=== PATIENT | female | born 2000 | race Hispanic/Latino ===

== ENCOUNTER 2023-03-23 06:18 | Observation (INO) | payer OTHER ==
--- OUTSIDE RECORDS SUMMARY | 2023-03-23 06:24 | XMS REPORT | Continuity of Care Document ---
:2000 Author Organization [facility] Address [address] [place] [address] Care Team Providers Name Role Phone Asked, No Pcp Primary Care Physician Unavailable [email or web address] Attending Clinician Unavailable [email or web address] Attending Clinician Unavailable [email or web address] Attending Clinician Unavailable Leanna Brown MA Attending Clinician Unavailable Jayce COOMBS, Valentina Brandon Attending Clinician [phone] Barbara Vegas MD Attending Clinician Krunal Rincon MD Attending Clinician [phone] Provider, Unknown Attending Clinician Unavailable Jefe Carpenter MD Attending Clinician [phone] Dolly Sol MA Attending Clinician Unavailable Leena Bey MD Attending Clinician Unavailable Kathe Mathew MD Attending Clinician [phone] Zoya Barahona DO Attending Clinician [phone] Chely Berrios MD Attending Clinician [phone] Juan Daniel Bull Attending Clinician JUAN DANIEL BULL Attending Clinician Unavailable VALENTINA TRUJILLO Admitting Clinician Unavailable Pauline COOMBS, Jefe Klein Unavailable [phone] Zoya Barahona DO Unavailable [phone] Ryan COOMBS, Kadie Obrien Unavailable [phone] Agustina COOMBS, Chely Unavailable [phone] Sotero COOMBS, Leena Unavailable Unavailable Quincy COOMBS, Kathe Unavailable [phone] Payers Payer Name Policy Type Policy Number Effective Date Expiration Date Jordon mccoy [facility] STAR P [id number] 2022 00:00:00 [facility] STAR P [id number] 2022 00:00:00 Problems Condition Condition Condition Status Onset Resolution Last Treating Co mments Source Name Details Category Date Date Treatment Clinician Date Vaginal Vaginal Disease Active Methodi delivery delivery 02-27 00:00: Hospita 00 l 40 weeks 40 weeks Disease Active Metho di gestation gestation 02-26 of of 00:00: Hospita 00 l Encounter Encounter Disease Active Met hodi for for 02-24 suspected suspected 00:00: Hosp parris premature premature 00 l rupture of rupture of amniotic amniotic membranes, membranes, with with rupture of rupture of membranes membranes not found not found Bacterial Bacterial Disease Active Met hodi vaginosis vaginosis 02-24 in in 00:00: Hospita 00 l GBS Condition Active 2023-02-17 Zofia Carpenter uthwe positive 02-17 09:19:[address] OB 00:00: 00 Encounter Condition Active 2023-01-23 Chapo Carpenter for 01-23 14:44:[address] OB supervisio 00:00: n of 00 normal first , third trimester Encounter Condition Active 2022-10-13 Brooklyn Cowan for 10-13 14:23:56 , Zoya st OB supervisio 00:00: Weust n of 00 normal first , second trimester Chlamydial Condition Active 2022-10-08 Chapo Davis infection 10-03 20:56:[address] OB 00:00: Camille 00 Insufficie Condition Active 2022-10-03 Chapo Berrios nt 2- 16:45:[address] OB 00:00: care, 00 second trimester 12 WEEKS 12 WEEKS Diagnosis Active 2022-09-29 Memoria /V /V 1-10 08:06:00 l OMITING OMITING 00:00: Jermaine Active 00 08/12/2022 [facility] Excessive Excessive Problem Active 2022-08-15 Memoria vomiting vomiting 05:34:32 l in in [place] (disorder) (disorder) Active Problem 08/15/2022 [facility] 39 Weeks Condition Active 2023-02-26 2023-02-19 Chapo Carpenter Gestation 7 00:00:00 13:23:[address] OB of 00:00: 00 38 Weeks Condition Inactiv 2023-02-19 2023-02-12 Chapo Carpenter Gestation e 02-12 00:00:00 13:20:[address] OB of 00:00: 00 35 Weeks Condition Inactiv 2023-01-30 2023-01-23 Chapo Carpenter Gestation e 01-23 00:00:00 14:44:[address] OB of 00:00: 00 History of Past Illness Condition Condition Condition Status Onset Resolution Last Treating Co mments Source Name Details Category Date Date Treatment Clinician Date 26 Weeks Condition Inactiv 2022-11-25 2022-11-18 Chapo Bey Gestation e 11-18 00:00:00 14:30:[address] OB of 00:00: 00 23 Weeks Condition Inactiv 2022-11-04 2022-10-28 SwapnilChapo López Gestation e 10-28 00:00:00 13:42:[address] OB of 00:00: 00 21 Weeks Condition Inactiv 2022-10-20 2022-10-13 Brooklyn Cowan Gestation e 3-13 00:00:00 14:23:56 , Zoya st OB of 00:00: Weust 00 Encounter Condition Inactiv 2022-10-13 2022-10-13 Trudi Cowan for e - 00:00:00 14:23:56 , Zoya st OB supervisio 00:00: Weust n of other 00 normal , second trimester 19 Weeks Condition Inactiv 2022-10-01 2022-09-24 Chapo Berrios Gestation e - 00:00:00 11:24:[address] OB of 00:00: 00 Urinary Urinary Diagnosis 2022-08-15 2022-08-15 Memoria tract tract 1-10 05:34:32 05:34:32 l infection infection 22:50: Herm meche in in 00 (disorder) (disorder) 08/12/2022 Diagnosis 08/15/2022 [facility] Mild Mild Diagnosis 2022-08-15 2022-08-15 Memoria hyperemesi hyperemesi 1-10 05:34:32 05:34:32 l s s 22:49: Jermaine gravidarum gravidarum 00 (disorder) (disorder) Diagnosis 08/15/2022 [facility] Allergies, Adverse Reactions, Alerts This patient has no known allergies or adverse reactions. Social History Social Habit Start Date Stop Date Quantity Comments Source [facility] Alcohol intake 2023-02-26 2023-02-26 Ex-drinker [facility] 00:00:00 00:00:00 (finding) Hospital History of Social 2023-02-26 2023-02-[address] function 00:00:00 00:00:00 Hospital Tobacco use and 2023-02-24 2023-02-24 Smokeless tobacco [facility] exposure 00:00:00 00:00:00 non-user Hospital sexual orientation 2023-02-19 2023-02-19 Straight or [facility] 12:58:59 12:58:59 heterosexual [facility] PHQ2 Questionairre 2023-02-19 2023-02-19 [facility] Score 12:58:59 12:58:59 [facility] is there any chance 2023-02-19 2023-02-19 Yes Legac y that you could be 12:58:59 12:58:59 Communi ty ? Health if the patient is 2023-02-19 2023-02-19 No [facility] using/has used a 12:58:59 12:58:59 Communit y vaping item, Health Current, Former, Never Used, Not asked number of children 2023-02-19 2023-02-19 Legacy 12:58:59 12:58:59 [facility] passive cigarette 2023-02-19 2023-02-19 LA32-8 Legacy smoke exposure 12:58:59 12:58:59 [facility] social history 2023-01-23 2023-01-23 reviewed today [facility] reviewed E&M 14:10:25 14:10:25 [facility] drug use 2023-01-23 2023-01-23 Never [facility] 14:10:25 14:10:25 [facility] alcohol use 2023-01-23 2023-01-23 Prior to Legac y 14:10:25 14:10:25 [facility] time of call 2022-10-30 2022-10-30 10/30/2022 1:40 PM Lega cy 13:39:58 13:39:58 [facility] smoking/tobacco 2022-09-24 2022-09-24 Complete [facility] cessation, patient 10:21:05 10:21:05 Commun ity education and Health counseling cat exposure during 2022-09-24 2022-09-24 no Legac y 10:21:05 10:21:05 [facility] Have you traveled to 2022-09-24 2022-09-24 no Lega cy any zika virus 10:21:05 10:21:05 Community infected areas? Health History of tobacco 2020-09-22 Current smoker [facility] use 00:00:00 Hospital Sex Assigned At [birth year] [facility] 00:00:00 00:00:00 Hospital Smoking Status Start Date Stop Date Source Ex-smoker 2023-02-24 00:00:00 2023-02-24 00:00:00 [facility] Tobacco smoking status [facility] Medications Ordered Filled Start Stop Current Ordering Indication Dosage Frequency Signature Comments Components Source Medication Medication Date Date Medication? Clinician (SIG) Name Name calcium Yes QD Chew 2 Methodi carbonate -[address] (TUMS) 200 17:01: (1,000 mg Ho spita mg calcium 00 of Calcium l (500 mg) Carbonate chewable total) tablet daily. Yes 1{tbl} QD Take 1 Metho di vit,calc76- 02-[address] iron-folic 17:02: mouth Hospit a 29 mg iron- 26 daily. l 1 mg tablet per tablet ondansetron Yes 4mg Q8H Take 1 Meth khadra ODT 02-27 tablet (4 st (ZOFRAN-ODT 17:02: mg total) H ospita ) 4 MG 26 by mouth l disintegrat every 8 ing tablet (eight) hours as needed for nausea or vomiting. ferrous 2023- Yes 325mg QD Take 1 Method i sulfate 325 02-[address] (65 FE) MG 00:00: 04:59 (325 mg Hos edgar EC tablet 00 :00 total) by l mouth daily for 360 days. docusate 2022- Yes 100mg Q.5D Take 1 Metho di sodium 02-27 11- capsule st (COLACE) 00:00: 05:59 (100 mg Hospi ta 100 MG 00 :00 total) by l capsule mouth 2 (two) times a day as needed for constipati on for up to 120 days. ibuprofen 2022- Yes 600mg Q6H Take 1 Meth khadra (ADVIL) 600 02-[address] MG tablet 00:00: 04:59 (600 mg Hosp parris 00 :00 total) by l mouth every 6 (six) hours as needed (Cramping, Laceration or Incision Pain) for up to 30 days. metroNIDAZO 2022- No 500mg Q.5D Take 1 Me thodi LE (FlagyL) 02-[address] 500 MG 00:00: 04:59 (500 mg Hospita tablet 00 :00 total) by l mouth 2 (two) times a day for 7 days. INTEGRA F Yes Jefe A 1 Take 1 [facility] (FE 02-23 Pauline COOMBS capsule by Adul t FUM-FEPOLY- 00:00: mouth once Medicin FA-VIT 00 a day e C-VIT B3) 125-1 MG CAPS (FERROUS 2022-0 202- No Jefe A 1 Take 1 [facility] SULFATE) 02-17 07-24 Pauline MD tablet by Adult 325 (65 Fe) 00:00: 00:00 mouth once Medicin MG TABS 00 :00 a day e (AZITHROMYC 0 Yes Kadie 2 Take 2 LM C IN) 500 MG 3-03 Camille tablet by Adult TABS 00:00: Davis mouth Medicin 00 MD single e dose (ONDANSETRO 0 Yes Chely 1 Take 1 LM C N) 4 MG 2-22 Agustina COOMBS tablet by Ad ult TBDP 00:00: mouth Medicin 00 every e eight hours as needed for nausea VITAFOL 0 Yes Chely 1 Take 1 [facility] ULTRA 2-22 Agustina COOMBS capsule by Jeff lt (PREN-FE 00:00: mouth once M edicin POLY-METHFO 00 a day e L-FA-DHA) 29-0.6-0.4- 200 MG CAPS Keflex 500 2022-0 Yes 500 mg = 1 M emoria mg oral 1-10 cap, PO, l capsule 22:47: QID, X 7 Adam n 00 day, # 28 cap, 0 Refill(s) Keflex 500 2022-0 Yes 500 mg = 1 M emoria mg oral 1-10 cap, PO, l capsule 22:47: QID, X 7 Adam n 00 day, # 28 cap, 0 Refill(s) Keflex 500 2022-0 Yes 500 mg = 1 M emoria mg oral 1-10 cap, PO, l capsule 22:47: QID, X 7 Adam n 00 day, # 28 cap, 0 Refill(s) Keflex 500 2022-0 Yes 500 mg = 1 M emoria mg oral 1-10 cap, PO, l capsule 22:47: QID, X 7 Adam n 00 day, # 28 cap, 0 Refill(s) Keflex 500 2022-0 Yes 500 mg = 1 M emoria mg oral 1-10 cap, PO, l capsule 22:47: QID, X 7 Adam n 00 day, # 28 cap, 0 Refill(s) Diclegis 10 0 Yes 2 tab, PO, Memoria mg-10 mg 1-10 Bedtime, # l oral 22:45: 30 tab, 0 [place] delayed 00 Refill(s) release tablet Diclegis 10 Yes 2 tab, PO, Memoria mg-10 mg 1-10 Bedtime, # l oral 22:45: 30 tab, 0 [place] delayed 00 Refill(s) release tablet Diclegis 10 0 Yes 2 tab, PO, Memoria mg-10 mg 1-10 Bedtime, # l oral 22:45: 30 tab, 0 [place] delayed 00 Refill(s) release tablet Diclegis 10 0 Yes 2 tab, PO, Memoria mg-10 mg 1-10 Bedtime, # l oral 22:45: 30 tab, 0 [place] delayed 00 Refill(s) release tablet Diclegis 10 Yes 2 tab, PO, Memoria mg-10 mg 1-10 Bedtime, # l oral 22:45: 30 tab, 0 [place] delayed 00 Refill(s) release tablet Vital Signs Vital Name Observation Time Observation Value Comments Source Systolic blood 2023-02-27 16:57:14 101 mm[Hg] [facility] pressure Diastolic blood 2023-02-27 16:57:14 66 mm[Hg] [facility] pressure Heart rate 2023-02-27 16:57:14 72 /min [facility] Body temperature 2023-02-27 16:57:[address] [facility] Oxygen saturation in 2023-02-27 16:57:14 99 /min [facility] Arterial blood by Pulse oximetry Respiratory rate 2023-02-27 09:05:02 18 /min [facility] Body height 2023-02-26 07:12:00 160 cm [facility] Body weight 2023-02-26 07:12:00 80.74 kg [facility] BMI 2023-02-26 07:12:00 31.53 kg/m2 [facility] Body Mass Index 2023-02-19 12:58:59 31.17 kg/m2 [facility] weight E&M 2023-02-19 12:58:59 169.8 [lb_av] [facility] Diastolic blood 2023-02-19 12:58:59 71 mm[Hg] Leg[facility] pressure Health Systolic blood 2023-02-19 12:58:59 114 mm[Hg] [facility] pulse rate 2023-02-19 12:58:59 86 /min [facility] C [facility] Health temperature site 2023-02-19 12:58:59 oral Lega cy [facility] Health height E&M 2023-02-19 12:58:59 62 [in_i] [facility] Health Body Mass Index 2023-02-12 12:57:25 31.39 kg/m2 [facility] Diastolic blood 2023-02-12 12:57:25 80 mm[Hg] Legac [facility] pressure Health Systolic blood 2023-02-12 12:57:25 130 mm[Hg] [facility] pulse rate 2023-02-12 12:57:25 92 /min [facility] respiratory rate E&M 2023-02-12 12:57:25 16 /[facility] 2023-02-12 12:57:25 oral Lega [facility] Health temperature E&M 2023-02-12 12:57:25 97.7 [degF] Leg[facility] y [facility] Health weight E&M 2023-02-12 12:57:25 171 [lb_av] [facility] height E&M 2023-02-12 12:57:25 62 [in_i] [facility] Body Mass Index 2023-01-23 14:10:25 30.36 kg/m2 [facility] Diastolic blood 2023-01-23 14:10:25 77 mm[Hg] Legac y [facility] pressure Health Systolic blood 2023-01-23 14:10:25 117 mm[Hg] [facility] pulse rate 2023-01-23 14:10:25 94 /min [facility] respiratory rate E&M 2023-01-23 14:10:25 16 /min [facility] temperature E&M 2023-01-23 14:10:25 97.9 [degF] Leg[facility] Health weight E&M 2023-01-23 14:10:25 165.4 [lb_av] [facility] 2023-01-23 14:10:25 oral Lega cy [facility] Health height E&M 2023-01-23 14:10:25 62 [in_i] [facility] Health Body Mass Index 2022-11-18 13:41:34 27.17 kg/m2 [facility] Diastolic blood 2022-11-18 13:41:34 69 mm[Hg] Leg[facility] pressure Health Systolic blood 2022-11-18 13:41:34 106 mm[Hg] [facility] E&M 2022-11-18 13:41:34 17 /min [facility] temperature site 2022-11-18 13:41:34 oral Lega cy [facility] Health pulse rate 2022-11-18 13:41:34 74 /min [facility] temperature E&M 2022-11-18 13:41:34 98.2 [degF] Leg[facility] Health weight E&M 2022-11-18 13:41:34 148 [lb_av] [facility] height E&M 2022-11-18 13:41:34 62 [in_i] [facility] Health Body Mass Index 2022-10-28 13:05:44 26.43 kg/m2 [facility] Diastolic blood 2022-10-28 13:05:44 71 mm[Hg] Leg[facility] pressure Health Systolic blood 2022-10-28 13:05:44 108 mm[Hg] [facility] pulse rate 2022-10-28 13:05:44 89 /min [facility] Health respiratory rate E&M 2022-10-28 13:05:44 19 /min [facility] temperature E&M 2022-10-28 13:05:44 98.4 [degF] [facility] Health weight E&M 2022-10-28 13:05:44 144.0 [lb_av] [facility] 2022-10-28 13:05:44 oral L[facility] cy [facility] height E&M 2022-10-28 13:05:44 62 [in_i] [facility] Body Mass Index 2022-10-13 13:42:24 26.29 kg/m2 [facility] weight E&M 2022-10-13 13:42:24 143.2 [lb_av] [facility] Health height E&M 2022-10-13 13:42:24 62 [in_i] [facility] Health pulse rate 2022-10-13 13:42:24 71 /min [facility] Health temperature site 2022-10-13 13:42:24 oral [facility]ega [facility] Health temperature E&M 2022-10-13 13:42:24 98.3 [degF] Leg[facility] Health Diastolic blood 2022-10-13 13:42:24 69 mm[Hg] [facility] Systolic blood 2022-10-13 13:42:24 122 mm[Hg] [facility] pressure Health weight E&M 2022-09-24 11:28:00 136 [facility] Body Mass Index 2022-09-24 10:21:05 25.04 kg/m2 [facility] Diastolic blood 2022-09-24 10:21:05 77 mm[Hg] [facility] Systolic blood 2022-09-24 10:21:05 119 mm[Hg] [facility] Health pulse rate 2022-09-24 10:21:05 78 /min [facility] respiratory rate E&M 2022-09-24 10:21:05 16 /min [facility] Health temperature E&M 2022-09-24 10:21:05 98.4 [degF] [facility] weight E&M 2022-09-24 10:21:05 136.4 [lb_av] [facility] Health height E&M 2022-09-24 10:21:05 62 [in_i] [facility] temperature site 2022-09-24 10:21:05 oral [facility] Health Temperature Oral (F) 2022-08-12 23:51:00 98.5 F [facility] Heart Rate 2022-08-12 23:51:00 Ramy Dean Systolic (mm Hg) 2022-08-12 23:51:00 Tru Dean Diastolic (mm Hg) 2022-08-12 23:51:00 Shira Dean Height 2022-08-12 21:10:00 5 [ft_i] Ramy Dean BMI Calculated 2022-08-12 21:10:00 Jun Chinchilla Weight 2022-08-12 21:10:00 Ramy Jermaine Procedures Procedure Date / Time Performing Clinician Source Performed CBC WITH PLATELET AND 2023-02-27 10:06:00 [facility] DIFFERENTIAL Kaisee TYPE AND SCREEN, 2023-02-26 11:53:00 [facility] OBSTETRICAL PATIENT Kaisee ANESTHESIA EPIDURAL 2023-02-26 10:26:58 Mckenzie [facility] BLOCK Cholo URINE CULTURE 2023-02-26 08:01:00 [facility] Kaisee URINE DRUGS OF ABUSE 2023-02-26 07:38:00 [facility] SCREEN Kaisee URINALYSIS SCREEN AND 2023-02-26 07:38:00 [facility] MICROSCOPY, WITH REFLEX Kaisee TO CULTURE SYPHILIS TREPONEMA 2023-02-25 15:18:00 [facility] SCREEN WITH RPR Kaisee CONFIRMATION (REVERSE ALGORITHM) HIV 1/2 2023-02-25 15:18:00 [facility] ANTIGEN/ANTIBODY, FOURTH Kaisee GENERATION, WITH REFLEXES HEPATITIS B SURFACE 2023-02-25 15:18:00 [facility] ANTIGEN Kaisee CBC WITH PLATELET AND 2023-02-25 15:18:00 [facility] DIFFERENTIAL Kaisee ABO/RH 2023-02-25 15:18:00 [facility] Kaisee US BIOPHYSICAL 2023-02-24 13:19:00 [facility] PROFILE Kaisee WET PREP 2023-02-24 12:57:00 [facility] URINE CULTURE 2023-02-24 12:52:00 [facility] S[facility] AND 2023-02-24 12:42:00 [facility] MICROSCOPY, WITH REFLEX Roma TO CULTURE AMNISURE 2023-02-24 12:42:00 [facility] 2022-10-28 13:40:52 Kathe Mathew [facility] OB Ultrasound, single 2022-10-13 14:23:39 Zoya Barahona y [facility] Plan of Care Planned Activity Planned Date Details Comments Source Future Scheduled 2023-03-13 COVID-19 VACCINE (#1) [facility] Test 10:57:59 [code = COVID-19 VACCINE (#1)] Future Scheduled 2023-03-13 [facility] Test 10:57:59 Chlamydia trachomatis (procedure) [code = 185242844] Future Scheduled 2023-03-13 Hepatitis C screening [facility] Test 10:57:59 (procedure) [code = 088347554] Future Scheduled 2023-03-13 [facility] Test 10:57:59 malignant neoplasm of cervix (procedure) [code = 941845689] Future Scheduled 2023-03-13 INFLUENZA VACCINE Method [facility] Test 10:57:59 [code = INFLUENZA VACCINE] Encounters Start End Encounter Admission Attending Care Care Encounter Source Date/Time Date/Time Type Type Clinicians Facility Department ID 2023-02-23 Outpatient [email or web address] [facility] [id number] [facility] 13:39:01 [id number] Critical access hospital 2023-02-11 Outpatient [email or web address] [facility] [id number] [facility] 14:07:03 [id number] Critical access hospital 2023-01-29 Outpatient lc.[email or web address] [facility] [id number] [facility] 13:43:03 [id number] Critical access hospital 2023-01-26 Outpatient [email or web address] [facility] [id number] [facility] 11:27:04 [id number] Critical access hospital 2023-01-22 Outpatient [email or web address] [facility] [id number] [facility] 16:05:04 [id number] Critical access hospital 2022-12-08 Outpatient [email or web address] [facility] [id number] [facility] 13:23:33 [id number] Critical access hospital 2022-11-14 Outpatient [email or web address] [facility] [id number] [facility] 10:17:11 [id number] Critical access hospital 2022-10-24 Outpatient [email or web address] [facility] [id number] [facility] 23:21:54 [id number] Critical access hospital 2022-10-19 Outpatient [email or web address] [facility] [id number] [facility] 18:07:05 [id number] Critical access hospital 2022-10-07 Outpatient [email or web address] [facility] [id number] [facility] 13:01:08 [id number] Critical access hospital 2022-09-25 Outpatient [email or web address] [facility] [id number] [facility] 10:21:12 [id number] Critical access hospital 2022-09-21 Outpatient [facility] [id number] [facility] 20:46:04 [id number] Critical access hospital 2022-09-12 Outpatient [facility] [id number] [facility] 14:13:04 [id number] Critical access hospital 2023-03-02 2023-03-02 Patient Kevin, 1.2.840.1 [id number] Methodi 00:00:00 00:00:00 Outreach Leanna [id number] 3.430.2.7 Hospit a .3.221576 l .8 2023-02-26 2023-02-27 [place] [id number] Methodi 01:54:00 17:01:00 Encounter Valentina gipson [id number] isee 3.430.2.7 Hospit a .3.398099 l .8 2023-02-26 2023-02-27 [facility] 001 [id number] Muir 00:00:00 00:00:00 LEONELA, VALENTINA 045 Met [facility] 2023-02-26 2023-02-26 Anesthesia Barbara [facility] 1.2.840.1 [id number] Methodi 05:07:00 16:30:00 Event Krunal Ricnon [id number] 3.430.2.7 Hospit a .3.808959 l .8 2023-02-26 2023-02-26 Documentat Provider, 1.2.840.1 [id number] Methodi 00:00:00 00:00:00 ion Unknown [id number] 3.430.2.7 Hospit a .3.438966 l .8 2023-02-25 2023-02-25 Outpatient [facility] [id number] Muir 00:00:00 00:00:00 LEONELA, VALENTINA 074 Met [facility] 2023-02-24 2023-02-24 [facility] 1.2.840.1 [id number] Methodi 06:59:00 08:50:00 Encounter Valentina gipson [id number] [facility] 3.430.2.7 Hospit a .3.725152 l .8 2023-02-24 2023-02-24 Emergency [facility] 001 [id number] Muir 00:00:00 00:00:00 LEONELA VALENTINA 579 Met [facility] 2023-02-19 2023-02-19 [facility]:00 00:00:00 encounter Dolly Sol VP PURCHASING [id number] [facility] [id number] [facility] 2023-02-19 2023-02-19 In-person Jefe Carpenter [facility] Diann to [id number] [facility] 00:00:00 00:00:00 encounter Dolly Sol VP PURCHASING 23 [id number] Critical access hospital 2023-02-18 2023-02-18 [facility] 1.2.840.1 [id number] Methodi 00:00:00 00:00:00 Only leonela, Valentina [id number] 183 s t Ka[facility]e 3.430.2.7 Hospit a .3.435334 l .8 2023-02-18 2023-02-18 Orders Francisco Javier-Osterma 1.2.840.1 [id number] Methodi 00:00:00 00:00:00 Only leonela Valentina [id number] 088 s t [place] [id number] Hospit a .[id number] l .8 2023-02-12 2023-02-12 In-person Jefe Carpenter [facility] Jacinto Tidwell to Encounter/ [facility] 00:00:00 00:00:00 encounter Rubi Diaz Family [id number] Commun[facility] Practice [id number] ty Health 2023-02-12 2023-02-12 In-person Jefe Carpenter [facility] Jacinto Tidwell to [id number] [facility] 00:00:00 00:00:00 encounter Rubi Diaz Family [id number] Communi Practice ty Health 2023-01-23 2023-01-23 In-person Jefe Carpenter [facility] Jacinto Tidwell to [id number] [facility] 00:00:00 00:00:00 encounter Hilaria Brown VP PURCHASING [id number] [facility] ty Health 2023-01-23 2023-01-23 In-person Jefe Carpenter [facility] Jacinto Tidwell to Encounter/ [facility] 00:00:00 00:00:00 encounter Hilaria Brown VP PURCHASING [id number] [facility] [id number] ty Health 2022-11-18 2022-11-18 In-person Leena Bey [facility] [place] [id number] [facility] 00:00:00 00:00:00 encounter Jodie Bustos [id number] Communi OB ty Health 2022-11-18 2022-11-18 In-person Leena Bey [facility] [place] Encounter/ [facility] 00:00:00 00:00:00 encounter Jodie Bustos Dot Edd r [id number] [facility] [place] [id number] ty Health 2022-10-28 2022-10-28 In-person Kathe Mathew [facility] [place] Encounter/ [facility] 00:00:00 00:00:00 encounter Viktoriya Guido [place] 19 [id number] [facility] [id number] 2022-10-28 2022-10-28 In-person Kathe Mathew [facility] [place] [id number] [facility] 00:00:00 00:00:00 encounter [facility] 23 [id number] Mariaelena Ewing OB ty Health 2022-10-13 2022-10-13 In-person Zoya Barahona [facility] S [place] [id number] [facility] 00:00:00 00:00:00 encounter Fercho Painterina OB [id number] 13 Magaly Renee ty Health 2022-10-13 2022-10-13 In-person Zoya Barahona [facility] S [place] Encounter/ [facility] 00:00:00 00:00:00 encounter PainterRekha OB 1994 [id number] Magaly Renee [id number] ty Health 2022-09-24 2022-09-24 In-person Chely Berrios [facility] [place] [id number] [facility] 00:00:00 00:00:00 encounter Yumiko Alejandra r [id number] Viktoriya Mera I [facility] [place] [facility] 2022-09-24 2022-09-24 In-person Chely Berrios [facility] [place] Encounter/ [facility] 00:00:00 00:00:00 encounter Viktoriya Lindo I [place] [id number], [place] [address] 0 ty Health 2022-08-12 2022-08-13 Emergency [facility] [id number] Memoria 14:17:59 00:08:[address] 2022-08-12 2022-08-13 Emergency [facility] [id number] [id number] Memoria 14:17:59 00:08:[address] 2022-08-12 2022-08-12 Outpatient Ml, [facility] [id number] 875 08:17:59 18:08:00 Juan Daniel Khanh Purvis 2022-08-12 2022-08-12 Emergency E ML, [facility] 08:17:00 18:08:00 JUAN DANIEL Results Test Description Test Time Test Comments Results Result Comments Source Urine culture 2023-02-27 23:37:00 Test Item Value Reference Range Interpretation Comme nts Urine culture isolate Mixed carli <=10-3 Specimen InformationSpecimen (test code = 05015-7) col/cc Source : UrineSpecimen Site: [facility] agglutination [facility] (TPPA test) 2023-02-12 13:23:00 Test Item Value Reference Range Interpretation Comments Treponema pallidum particle NEGATIVE NEGATIVE N agglutination assay (TPPA test) (test code = 14244-1) [facility] Healthbasophils as percent of blood jysgtskely1575-79-38 13:23:00 Test Item Value Reference Range Interpretation Comments basophils as percent of blood 0.2 % N leukocytes (test code = 707-0) [facility] percent of blood oaoiqhvvwd3704-15-37 13:23:00 Test Item Value Reference Range Interpretation Comments eosinophils as percent of blood 0.5 % N leukocytes (test code = 714-6) [facility] Healthmonocytes as percent of blood pfzzvpahzf5060-48-03 13:23:00 Test Item Value Reference Range Interpretation Comments monocytes as percent of blood 6.3 % N leukocytes (test code = 5905-5) [facility] Valdeselymphocytes as percent of blood qufyyafkzt6015-31-63 13:23:00 Test Item Value Reference Range Interpretation Comments lymphocytes as percent of blood 10.3 % N leukocytes (test code = 736-9) [facility] Valdeseneutrophils as percent of blood nhydqewrwn9661-74-00 13:23:00 Test Item Value Reference Range Interpretation Comments neutrophils as percent of blood 82.7 % N leukocytes (test code = 770-8) [facility] Valdesebasophil count, ogijmpgl6971-54-80 13:23:00 Test Item Value Reference Range Interpretation Comments basophil count, absolute (test 23 cells/uL 0-200 N code = 20973-0) [facility]eAbsolute Eosinophil [id number] 13:23:00 Test Item Value Reference Range Interpretation Comments Absolute Eosinophil count (test 57 cells/mcL 15-500 N code = 19694-1) [facility] [place] Monocyte [id number] 13:23:00 Test Item Value Reference Range Interpretation Comments Absolute Monocyte count (test 712 cells/mcL 200-950 N code = 32235-9) [facility] Valdeselymphocytes, gcifaabv4119-85-89 13:23:00 Test Item Value Reference Range Interpretation Comments lymphocytes, absolute (test 1164 CELLS/UL 850-3900 N code = 86934-2) [facility] [place] Neutrophil [id number] 13:23:00 Test Item Value Reference Range Interpretation Comments Absolute Neutrophil count 9345 cells/mcL 8325-0228 H (test code = 80712-7) [facility] platelet [id number] 13:23:00 Test Item Value Reference Range Interpretation Comments mean platelet volume (test code = 10.5 fL 7.5-12.5 N 776-5) [facility]deseplatelet [id number] 13:23:00 Test Item Value Reference Range Interpretation Comments platelet count (test code = 270 THOUSAND/UL 140-400 N 777-3) [facility]ered blood cell distribution [id number] 13:23:00 Test Item Value Reference Range Interpretation Comments red blood cell distribution width 14.1 % 11.0-15.0 N (test code = 788-0) [facility] corpuscular hemoglobin concentration, [id number] 13:23:00 Test Item Value Reference Range Interpretation Comments mean corpuscular hemoglobin 33.0 G/DL 32.0-36.0 N concentration, RBC (test code = 786-4) [facility] corpuscular hemoglobin, [id number] 13:23:00 Test Item Value Reference Range Interpretation Comments mean corpuscular hemoglobin, RBC 26.5 pg 27.0-33.0 L (test code = 785-6) [facility], [id number] 13:23:00 Test Item Value Reference Range Interpretation Comments mean corpuscular volume, RBC (test 80.4 fL 80.0-100.0 N code = 787-2) [facility]ehematocrit, [id number] 13:23:00 Test Item Value Reference Range Interpretation Comments hematocrit, blood (test code = 4544-3) 30.3 % 35.0-45.0 L [facility] Valdesehemoglobin, [id number] 13:23:00 Test Item Value Reference Range Interpretation Comments hemoglobin, blood (test code = 10.0 g/dL 11.7-15.5 L 718-7) [facility] Valdeseerythrocyte (RBC) [id number] 13:23:00 Test Item Value Reference Range Interpretation Comments erythrocyte (RBC) count (test 3.77 MILLION/UL 3.80-5.10 L code = 789-8) [facility] Valdeseleukocyte count, [id number] 13:23:00 Test Item Value Reference Range Interpretation Comments leukocyte count, blood (test 11.3 THOUSAND/UL 3.8-10.8 H code = 6690-2) [facility] ValdeseHIV-CMIA (Chemiluminescent Microparticle Immuno Assay) 2023-02-12 13:23:00 Test Item Value Reference Range Interpretation Comments HIV-CMIA (Chemiluminescent NON-REACTIVE NON-REACTIVE N Microparticle Immuno Assay) (test code = 33666-7) [facility] ValdeseNeisseria gonorrhoeae DNA [id number] 14:42:00 Test Item Value Reference Range Interpretation Comments Neisseria gonorrhoeae DNA probe NOT DETECTED NOT DETECTED N (test code = 67521-4) [facility] Valdesechlamydia DNA [id number] 14:42:00 Test Item Value Reference Range Interpretation Comments chlamydia DNA probe (test code = NOT DETECTED NOT DETECTED N 61190-3) [facility] ValdeseNeisseria gonorrhoeae DNA [id number] 14:42:00 Test Item Value Reference Range Interpretation Comments Neisseria gonorrhoeae DNA probe NOT DETECTED NOT DETECTED N (test code = 23978-0) [facility] Valdeserubella antibody, serum, [id number] 14:34:00 Test Item Value Reference Range Interpretation Comments rubella antibody, serum, 2.33 (unknown unit) N IgG (test code = 5334-8) [facility] Healthbasophils as percent of blood wpfitivgcq9824-58-94 14:34:00 Test Item Value Reference Range Interpretation Comments basophils as percent of blood 0.2 % N leukocytes (test code = 707-0) [facility]eeosinophils as percent of blood zuomkthifh2146-21-89 14:34:00 Test Item Value Reference Range Interpretation Comments eosinophils as percent of blood 0.7 % N leukocytes (test code = 714-6) [facility] Healthmonocytes as percent of blood wmhdglqijv8337-09-28 14:34:00 Test Item Value Reference Range Interpretation Comments monocytes as percent of blood 4.2 % N leukocytes (test code = 5905-5) [facility] Valdeselymphocytes as percent of blood ivmrfrenpp8802-60-50 14:34:00 Test Item Value Reference Range Interpretation Comments lymphocytes as percent of blood 13.6 % N leukocytes (test code = 736-9) [facility] Valdeseneutrophils as percent of blood dwstxkawxn2999-19-52 14:34:00 Test Item Value Reference Range Interpretation Comments neutrophils as percent of blood 81.3 % N leukocytes (test code = 770-8) [facility] Valdesebasophil count, wicaoido1768-17-64 14:34:00 Test Item Value Reference Range Interpretation Comments basophil count, absolute (test 21 cells/uL 0-200 N code = 00500-9) [facility]eAbsolute Eosinophil [id number] 14:34:00 Test Item Value Reference Range Interpretation Comments Absolute Eosinophil count (test 72 cells/mcL 15-500 N code = 22792-8) [facility]eAbsolute Monocyte [id number] 14:34:00 Test Item Value Reference Range Interpretation Comments Absolute Monocyte count (test 433 cells/mcL 200-950 N code = 18927-4) [facility] Valdeselymphocytes, zisvpgfh3904-08-99 14:34:00 Test Item Value Reference Range Interpretation Comments lymphocytes, absolute (test 1401 CELLS/UL 850-3900 N code = 80516-9) [facility]eAbsolute Neutrophil [id number] 14:34:00 Test Item Value Reference Range Interpretation Comments Absolute Neutrophil count 8374 cells/mcL 2010-7414 H (test code = 90528-4) [facility] platelet [id number] 14:34:00 Test Item Value Reference Range Interpretation Comments mean platelet volume (test code = 10.5 fL 7.5-12.5 N 776-5) [facility]eplatelet [id number] 14:34:00 Test Item Value Reference Range Interpretation Comments platelet count (test code = 266 THOUSAND/UL 140-400 N 777-3) [facility] blood cell distribution [id number] 14:34:00 Test Item Value Reference Range Interpretation Comments red blood cell distribution width 12.1 % 11.0-15.0 N (test code = 788-0) [facility] corpuscular hemoglobin concentration, [id number] 14:34:00 Test Item Value Reference Range Interpretation Comments mean corpuscular hemoglobin 35.6 G/DL 32.0-36.0 N concentration, RBC (test code = 786-4) [facility] corpuscular hemoglobin, [id number] 14:34:00 Test Item Value Reference Range Interpretation Comments mean corpuscular hemoglobin, RBC 32.6 pg 27.0-33.0 N (test code = 785-6) [facility] corpuscular volume, [id number] 14:34:00 Test Item Value Reference Range Interpretation Comments mean corpuscular volume, RBC (test 91.5 fL 80.0-100.0 N code = 787-2) [facility]ehematocrit, [id number] 14:34:00 Test Item Value Reference Range Interpretation Comments hematocrit, blood (test code = 4544-3) 31.2 % 35.0-45.0 L [facility] Valdesehemoglobin, [id number] 14:34:00 Test Item Value Reference Range Interpretation Comments hemoglobin, blood (test code = 11.1 g/dL 11.7-15.5 L 718-7) [facility]eerythrocyte (RBC) [id number] 14:34:00 Test Item Value Reference Range Interpretation Comments erythrocyte (RBC) count (test 3.41 MILLION/UL 3.80-5.10 L code = 789-8) [facility] Valdeseleukocyte count, [id number] 14:34:00 Test Item Value Reference Range Interpretation Comments leukocyte count, blood (test 10.3 THOUSAND/UL 3.8-10.8 N code = 6690-2) [facility]eblood glucose, 1 hour after 50 gm oral [id number] 14:34:00 Test Item Value Reference Range Interpretation Comments blood glucose, 1 hour after 50 gm 121 mg/dL <135 N oral glucose (test code = 1039) [facility] Valdesepregnancy test, luzm4271-72-07 13:41:34 Test Item Value Reference Range Interpretation Comments test, type (test code = home 2106-3) [facility] Valdesebeta HCG, urine, vtrwnuhwzpgnwmgc8355-13-84 13:41:34 Test Item Value Reference Range Interpretation Comments beta HCG, urine, semiquantitative positive (test code = 2106-3) [facility] Valdeseurine ykbsstl8854-92-76 12:38:00 Test Item Value Reference Range Interpretation Comments urine culture (test Mixed genital carli code = 630-4) isolated. These superficial [facility] ValdeseNeisseria gonorrhoeae DNA [id number] 12:29:00 Test Item Value Reference Range Interpretation Comments Neisseria gonorrhoeae DNA probe NOT DETECTED NOT DETECTED N (test code = 41147-7) [facility] ValdeseNeisseria gonorrhoeae DNA [id number] 12:29:00 Test Item Value Reference Range Interpretation Comments Neisseria gonorrhoeae DNA probe NOT DETECTED NOT DETECTED N (test code = 19161-0) [facility] Valdesechlamydia DNA [id number] 12:29:00 Test Item Value Reference Range Interpretation Comments chlamydia DNA probe (test code = DETECTED NOT DETECTED A 87820-1) [facility] [id number] 11:28:00 Test Item Value Reference Range Interpretation Comments Rh antigen (test code = 255) RH(D) POSITIVE [facility] blood [id number] 11:28:00 Test Item Value Reference Range Interpretation Comments ABO blood group (test code = 116) O [facility] gjwjplnp4926-95-66 11:28:00 Test Item Value Reference Range Interpretation Comments Rh antibody (test code NO ANTIBODIES DETECTED N = 256) [facility] ValdeseTreponema pallidum particle agglutination assay (TPPA test)2022-09-24 11:28:00 Test Item Value Reference Range Interpretation Comments Treponema pallidum particle NEGATIVE N agglutination assay (TPPA test) (test code = 59106-7) [facility] Valdesealpha-1 fetoprotein, maternal ,serum, multiples of median 2022-09-24 11:28:00 Test Item Value Reference Range Interpretation Comments alpha-1 fetoprotein, maternal 0.79 (?) ,serum, multiples of median (test code = 4302) [facility]ealpha-1 fetoprotein, [id number] 11:28:00 Test Item Value Reference Range Interpretation Comments alpha-1 fetoprotein, serum (test 42.0 ng/mL code = 2754) [facility] Val[facility]ealpha-fetoprotein interpretation of clsrftl9360-70-43 11:28:00 Test Item Value Reference Range Interpretation Comments alpha-fetoprotein Screen negative for interpretation of results open NTD. (test code = 8076) [facility] Val[facility]eHepatitis C Antibody, Signal to Uuu-Kmh8568-33-22 11:28:00 Test Item Value Reference Range Interpretation Comments Hepatitis C Antibody, 0.07 (unknown unit) <1.00 N Signal to Cut-Off (test code = 15219-3) [facility] Val[facility]ehepatitis C antibody, nyoeo5464-88-07 11:28:00 Test Item Value Reference Range Interpretation Comments hepatitis C antibody, serum NON-REACTIVE NON-REACTIVE N (test code = 35392-3) [facility]ehepatitis B surface adzefme9263-41-02 11:28:00 Test Item Value Reference Range Interpretation Comments hepatitis B surface antigen NON-REACTIVE NON-REACTIVE N (test code = 92279-8) [facility] Healthbasophils as percent of blood fpxnxzqwjq0174-58-17 11:28:00 Test Item Value Reference Range Interpretation Comments basophils as percent of blood 0.2 % N leukocytes (test code = 707-0) [facility]eeosinophils as percent of blood ppciajfjud6336-85-00 11:28:00 Test Item Value Reference Range Interpretation Comments eosinophils as percent of blood 0.5 % N leukocytes (test code = 714-6) [facility] Valdesemonocytes as percent of blood gywwduerfz3154-26-40 11:28:00 Test Item Value Reference Range Interpretation Comments monocytes as percent of blood 5.0 % N leukocytes (test code = 5905-5) [facility] Valdeselymphocytes as percent of blood mjalqbibae0581-91-85 11:28:00 Test Item Value Reference Range Interpretation Comments lymphocytes as percent of blood 13.8 % N leukocytes (test code = 736-9) [facility] Valdeseneutrophils as percent of blood mvmydcvzgg5625-98-52 11:28:00 Test Item Value Reference Range Interpretation Comments neutrophils as percent of blood 80.5 % N leukocytes (test code = 770-8) [facility] Valdesebasophil count, actpfqrs3582-23-02 11:28:00 Test Item Value Reference Range Interpretation Comments basophil count, absolute (test 20 cells/uL 0-200 N code = 08460-3) [facility]eAbsolute Eosinophil [id number] 11:28:00 Test Item Value Reference Range Interpretation Comments Absolute Eosinophil count (test 50 cells/mcL 15-500 N code = 55563-6) [facility]eAbsolute Monocyte [id number] 11:28:00 Test Item Value Reference Range Interpretation Comments Absolute Monocyte count (test 500 cells/mcL 200-950 N code = 29942-0) [facility] Valdeselymphocytes, detddwiu1404-30-90 11:28:00 Test Item Value Reference Range Interpretation Comments lymphocytes, absolute (test 1380 CELLS/UL 850-3900 N code = 67360-0) [facility]eAbsolute Neutrophil [id number] 11:28:00 Test Item Value Reference Range Interpretation Comments Absolute Neutrophil count 8050 cells/mcL 2543-7043 H (test code = 51613-9) [facility] Valdesemean platelet aucaxr4496-92-84 11:28:00 Test Item Value Reference Range Interpretation Comments mean platelet volume (test code = 10.4 fL 7.5-12.5 N 776-5) [facility] Valdeseplatelet [id number] 11:28:00 Test Item Value Reference Range Interpretation Comments platelet count (test code = 264 THOUSAND/UL 140-400 N 777-3) [facility]ered blood cell distribution [id number] 11:28:00 Test Item Value Reference Range Interpretation Comments red blood cell distribution width 14.6 % 11.0-15.0 N (test code = 788-0) [facility] corpuscular hemoglobin concentration, [id number] 11:28:00 Test Item Value Reference Range Interpretation Comments mean corpuscular hemoglobin 35.4 G/DL 32.0-36.0 N concentration, RBC (test code = 786-4) [facility] corpuscular hemoglobin, [id number] 11:28:00 Test Item Value Reference Range Interpretation Comments mean corpuscular hemoglobin, RBC 30.9 pg 27.0-33.0 N (test code = 785-6) [facility] corpuscular volume, [id number] 11:28:00 Test Item Value Reference Range Interpretation Comments mean corpuscular volume, RBC (test 87.4 fL 80.0-100.0 N code = 787-2) [facility]ehematocrit, [id number] 11:28:00 Test Item Value Reference Range Interpretation Comments hematocrit, blood (test code = 4544-3) 32.5 % 35.0-45.0 L [facility] Valdesehemoglobin, [id number] 11:28:00 Test Item Value Reference Range Interpretation Comments hemoglobin, blood (test code = 11.5 g/dL 11.7-15.5 L 718-7) [facility] Val[facility]eerythrocyte (RBC) [id number] 11:28:00 Test Item Value Reference Range Interpretation Comments erythrocyte (RBC) count (test 3.72 MILLION/UL 3.80-5.10 L code = 789-8) [facility] Valdeseleukocyte count, mexky0738-82-08 11:28:00 Test Item Value Reference Range Interpretation Comments leukocyte count, blood (test 10.0 THOUSAND/UL 3.8-10.8 N code = 6690-2) [facility] Val[facility]eHIV-CMIA (Chemiluminescent Microparticle Immuno Assay) 2022-09-24 11:28:00 Test Item Value Reference Range Interpretation Comments HIV-CMIA (Chemiluminescent NON-REACTIVE NON-REACTIVE N Microparticle Immuno Assay) (test code = 32550-4) [facility] Valdesehepatitis C antibody, [id number] 11:28:00 Test Item Value Reference Range Interpretation Comments hepatitis C antibody, serum NON-REACTIVE NON-REACTIVE N (test code = 5199-5) [facility] ValdeseHerpes Simplex Virus Ybetokj5216-16-14 10:21:05 Test Item Value Reference Range Interpretation Comments Herpes Simplex Virus Genital (test code no = 5856-0) [facility] Valdesepregnancy test, [id number] 10:21:05 Test Item Value Reference Range Interpretation Comments test, type (test code = home 2106-3) [facility]ebeta HCG, urine, zqupqqdrsfvvedby8010-73-27 10:21:05 Test Item Value Reference Range Interpretation Comments beta HCG, urine, semiquantitative positive (test code = 2106-3) [facility] ValdeseCystic Fibrosis DNA, Whole [id number] 00:00:00 Test Item Value Reference Range Interpretation Comments Cystic Fibrosis DNA, Whole Blood Negative N (test code = 98992) [facility] ValdeseRADRPT2023-01-10 22:42:32 Test Item Value Reference Range Interpretation Comments RADRPT (test code EXAM: US PELVIS = RADRPT) TRANSABDOMINALEXAM: US PELVIS TRANSVAGINALDATE: 08/12/2022 13:47 INDICATION: - n/vCOMPARISON: None. TECHNIQUE: Multiplanar grayscale and color Doppler ultrasound images of the pelvis were obtained transabdominally through a distended urinary bladder followed by transvaginal examination postvoid.FINDINGS: Uterus: Orientation: Anteverted. Size: 10.5 cm span by 8.2 cm AP dimension by 8.9 cm in width. cm. Masses: None. Cervix: Unremarkable Gestation: Single Mean gestational sac diameter: 5.15 cm corresponds to 11 weeks 5 days. Wausa-rump length (CRL): 5.57 cm corresponds to 12 weeks 2 days. Embryonic heart motion: 170 bpm Yolk sac: Not visualized Subchorionic hemorrhage: None.Right ovary: Size: 2.9 x 1.8 x 1.7 cm cm Cysts: None. Masses: None.Left ovary: Not identifiedAdnexa: Normal. Free fluid: None.Other findings: None.IMPRESSION:1. Single viable intrauterine with embryonic HR of 170 bpm and estimated age by crown-rump length of 12 weeks and 2 days. Reference:Edvin SANCHEZ et al. Diagnostic Criteria for Nonviable Early in the First Trimester. N Engl J Med 2013; 369: 1443-51 [facility] CenterWjdssxiBBZZSN3742-11-29 22:42:32 Test Item Value Reference Range Interpretation Comments RADRPT (test code EXAM: US PELVIS = RADRPT) TRANSABDOMINALEXAM: US PELVIS TRANSVAGINALDATE: 08/12/2022 13:47 INDICATION: - n/vCOMPARISON: None. TECHNIQUE: Multiplanar grayscale and color Doppler ultrasound images of the pelvis were obtained transabdominally through a distended urinary bladder followed by transvaginal examination postvoid.FINDINGS: Uterus: Orientation: Anteverted. Size: 10.5 cm span by 8.2 cm AP dimension by 8.9 cm in width. cm. Masses: None. Cervix: Unremarkable Gestation: Single Mean gestational sac diameter: 5.15 cm corresponds to 11 weeks 5 days. Wausa-rump length (CRL): 5.57 cm corresponds to 12 weeks 2 days. Embryonic heart motion: 170 bpm Yolk sac: Not visualized Subchorionic hemorrhage: None.Right ovary: Size: 2.9 x 1.8 x 1.7 cm cm Cysts: None. Masses: None.Left ovary: Not identifiedAdnexa: Normal. Free fluid: None.Other findings: None.IMPRESSION:1. Single viable intrauterine with embryonic HR of 170 bpm and estimated age by crown-rump length of 12 weeks and 2 days. Reference:Edvin SANCHEZ et al. Diagnostic Criteria for Nonviable Early in the First Trimester. N Engl J Med 2013; 369: 1443-51 [id number] 22:42:32 Test Item Value Reference Range Interpretation Comments RADRPT (test code EXAM: US PELVIS = RADRPT) TRANSABDOMINALEXAM: US PELVIS TRANSVAGINALDATE: 08/12/2022 13:47 INDICATION: - n/vCOMPARISON: None. TECHNIQUE: Multiplanar grayscale and color Doppler ultrasound images of the pelvis were obtained transabdominally through a distended urinary bladder followed by transvaginal examination postvoid.FINDINGS: Uterus: Orientation: Anteverted. Size: 10.5 cm span by 8.2 cm AP dimension by 8.9 cm in width. cm. Masses: None. Cervix: Unremarkable Gestation: Single Mean gestational sac diameter: 5.15 cm corresponds to 11 weeks 5 days. Wausa-rump length (CRL): 5.57 cm corresponds to 12 weeks 2 days. Embryonic heart motion: 170 bpm Yolk sac: Not visualized Subchorionic hemorrhage: None.Right ovary: Size: 2.9 x 1.8 x 1.7 cm cm Cysts: None. Masses: None.Left ovary: Not identifiedAdnexa: Normal. Free fluid: None.Other findings: None.IMPRESSION:1. Single viable intrauterine with embryonic HR of 170 bpm and estimated age by crown-rump length of 12 weeks and 2 days. Reference:Merlet PM et al. Diagnostic Criteria for Nonviable Early in the First Trimester. N Engl J Med 2013; 369: 1443-51 [facility] [id number] 22:42:32 Test Item Value Reference Range Interpretation Comments RADRPT (test code EXAM: US PELVIS = RADRPT) TRANSABDOMINALEXAM: US PELVIS TRANSVAGINALDATE: 08/12/2022 13:47 INDICATION: - n/vCOMPARISON: None. TECHNIQUE: Multiplanar grayscale and color Doppler ultrasound images of the pelvis were obtained transabdominally through a distended urinary bladder followed by transvaginal examination postvoid.FINDINGS: Uterus: Orientation: Anteverted. Size: 10.5 cm span by 8.2 cm AP dimension by 8.9 cm in width. cm. Masses: None. Cervix: Unremarkable Gestation: Single Mean gestational sac diameter: 5.15 cm corresponds to 11 weeks 5 days. Wausa-rump length (CRL): 5.57 cm corresponds to 12 weeks 2 days. Embryonic heart motion: 170 bpm Yolk sac: Not visualized Subchorionic hemorrhage: None.Right ovary: Size: 2.9 x 1.8 x 1.7 cm cm Cysts: None. Masses: None.Left ovary: Not identifiedAdnexa: Normal. Free fluid: None.Other findings: None.IMPRESSION:1. Single viable intrauterine with embryonic HR of 170 bpm and estimated age by crown-rump length of 12 weeks and 2 days. Reference:Edvin SANCHEZ et al. Diagnostic Criteria for Nonviable Early in the First Trimester. N Engl J Med 2013; 369: 1443-51 [facility] HospitalPhwhukcABGPWZ8310-28-05 22:42:32 Test Item Value Reference Range Interpretation Comments RADRPT (test code EXAM: US PELVIS = RADRPT) TRANSABDOMINALEXAM: US PELVIS TRANSVAGINALDATE: 08/12/2022 13:47 INDICATION: - n/vCOMPARISON: None. TECHNIQUE: Multiplanar grayscale and color Doppler ultrasound images of the pelvis were obtained transabdominally through a distended urinary bladder followed by transvaginal examination postvoid.FINDINGS: Uterus: Orientation: Anteverted. Size: 10.5 cm span by 8.2 cm AP dimension by 8.9 cm in width. cm. Masses: None. Cervix: Unremarkable Gestation: Single Mean gestational sac diameter: 5.15 cm corresponds to 11 weeks 5 days. W[place]-rump length (CRL): 5.57 cm corresponds to 12 weeks 2 days. Embryonic heart motion: 170 bpm Yolk sac: Not visualized Subchorionic hemorrhage: None.Right ovary: Size: 2.9 x 1.8 x 1.7 cm cm Cysts: None. Masses: None.Left ovary: Not identifiedAdnexa: Normal. Free fluid: None.Other findings: None.IMPRESSION:1. Single viable intrauterine with embryonic HR of 170 bpm and estimated age by crown-rump length of 12 weeks and 2 days. Reference:Edvin SANCHEZ et al. Diagnostic Criteria for Nonviable Early in the First Trimester. N Engl J Med 2013; 369: 1443-51 [employer] [id number] 21:28:00 Test Item Value Reference Range Interpretation Comments ABO/Rh (test code = ABO/Rh) O POS [employer] [id number] 21:28:00 Test Item Value Reference Range Interpretation Comments Antibody Scrn (test Negative (08/12/22 3:28 code = Antibody Scrn) PM) [employer] [id number] 21:28:00 Test Item Value Reference Range Interpretation Comments ABO/Rh (test code = ABO/Rh) O POS [employer] [id number] 21:28:00 Test Item Value Reference Range Interpretation Comments Antibody Scrn (test Negative (08/12/22 3:28 code = Antibody Scrn) PM) [facility] [employer] [id number] 21:28:00 Test Item Value Reference Range Interpretation Comments ABO/Rh (test code = ABO/Rh) O POS [facility] [employer] [id number] 21:28:00 Test Item Value Reference Range Interpretation Comments Antibody Scrn (test Negative (08/12/22 3:28 code = Antibody Scrn) PM) [facility] [id number] 21:28:00 Test Item Value Reference Range Interpretation Comments ABO/Rh (test code = ABO/Rh) O POS [facility] [employer] [id number] 21:28:00 Test Item Value Reference Range Interpretation Comments Antibody Scrn (test Negative (08/12/22 3:28 code = Antibody Scrn) PM) [facility] [employer] [facility] [id number] 21:28:00 Test Item Value Reference Range Interpretation Comments ABO/Rh (test code = ABO/Rh) O POS [facility] [employer] [id number] 21:28:00 Test Item Value Reference Range Interpretation Comments Antibody Scrn (test Negative (08/12/22 3:28 code = Antibody Scrn) PM) [facility] [id number] 21:18:26 Test Item Value Reference Range Interpretation Comments hCG Tot (test code = hCG Tot) 53735 [facility] HospitalZohderlKVOXMJLWB7445-11-04 21:18:26 Test Item Value Reference Range Interpretation Comments hCG Tot (test code = hCG Tot) 94405 [facility] HospitalHkgqzgrAUKNIUIFJ3902-35-25 21:18:26 Test Item Value Reference Range Interpretation Comments hCG Tot (test code = hCG Tot) 46450 [facility] HospitalYvvbnhkUSSYJRORD2056-12-72 21:18:26 Test Item Value Reference Range Interpretation Comments hCG Tot (test code = hCG Tot) 48433 [facility] [id number] 21:18:26 Test Item Value Reference Range Interpretation Comments hCG Tot (test code = hCG Tot) 13252 [facility]: [id number] 16:36:00 Test Item Value Reference Range Interpretation Comments Culture: Urine (test code No Growth; Holding = Culture: Urine) [facility] [id number] 16:36:00 Test Item Value Reference Range Interpretation Comments Culture: Urine (test code No Growth; Holding = Culture: Urine) [facility] HospitalCulture: [id number] 16:36:00 Test Item Value Reference Range Interpretation Comments Culture: Urine (test code No Growth; Holding = Culture: Urine) [facility] HospitalCulture: [id number] 16:36:00 Test Item Value Reference Range Interpretation Comments Culture: Urine (test code No Growth; Holding = Culture: Urine) [facility] HospitalCulture: [id number] 16:36:00 Test Item Value Reference Range Interpretation Comments Culture: Urine (test code No Growth; Holding = Culture: Urine) [facility] [id number] 15:44:15 Test Item Value Reference Range Interpretation Comments U Preg (test code = U Positive *ABN*(08/12/22 Preg) 9:44 AM) [facility] [id number] 15:44:15 Test Item Value Reference Range Interpretation Comments U Preg (test code = U Positive *ABN*(08/12/22 Preg) 9:44 AM) [facility] [id number] 15:44:15 Test Item Value Reference Range Interpretation Comments UA Sq Epi (test code = UA Sq Epi) Many /LPF [facility] [id number] 15:44:15 Test Item Value Reference Range Interpretation Comments UA WBC (test code = 23 See_Comment [Automa jose r message] The UA WBC) system which ge nerated this result transmit jose r reference range : <=5. The reference range was not used to interpr et this result as jerrod l/abnormal. [facility] [id number] 15:44:15 Test Item Value Reference Range Interpretation Comments UA RBC (test code = 6 See_Comment [Automa jose r message] The UA RBC) system which ge nerated this result transmit jose r reference range : <=2. The reference range was not used to interpr et this result as jerrod l/abnormal. [facility] [id number] 15:44:15 Test Item Value Reference Range Interpretation Comments UA Bacteria (test code = UA Occasional /HPF Bacteria) [facility] [id number] 15:44:15 Test Item Value Reference Range Interpretation Comments UA Mucus (test code = UA Mucus) Many /LPF [facility] [id number] 15:44:15 Test Item Value Reference Range Interpretation Comments UA Sq Epi (test code = UA Sq Epi) Many /LPF [facility] [id number] 15:44:15 Test Item Value Reference Range Interpretation Comments UA Color (test code = Yellow *NA*(08/12/22 UA Color) 9:44 AM) [facility] [id number] 15:44:15 Test Item Value Reference Range Interpretation Comments UA Turbidity (test code = Clear (08/12/22 9:44 UA Turbidity) AM) [facility] [id number] 15:44:15 Test Item Value Reference Range Interpretation Comments UA Spec Grav (test >=1.030 *ABN*(08/12/22 code = UA Spec Grav) 9:44 AM) [facility] [id number] 15:44:15 Test Item Value Reference Range Interpretation Comments UA pH (test code = UA pH) 6.0 1 5.0-8.0 [facility] [id number] 15:44:15 Test Item Value Reference Range Interpretation Comments UA Protein (test code = UA Protein) 30 mg/dL [facility] AND [id number] 15:44:15 Test Item Value Reference Range Interpretation Comments UA Glucose (test code Negative (08/12/22 9:44 = UA Glucose) AM) [facility] AND [id number] 15:44:15 Test Item Value Reference Range Interpretation Comments UA Ketones (test code = >=80 *ABN*(08/12/22 UA Ketones) 9:44 AM) [facility] [id number] 15:44:15 Test Item Value Reference Range Interpretation Comments UA Bili (test code = Moderate *ABN*(08/12/22 UA Bili) 9:44 AM) [facility] [id number] 15:44:15 Test Item Value Reference Range Interpretation Comments UA Blood (test code = Negative (08/12/22 9:44 UA Blood) AM) [facility] [id number] 15:44:15 Test Item Value Reference Range Interpretation Comments UA Urobilinogen (test code = UA 4.0 0.1-1.0 Urobilinogen) [facility] [id number] 15:44:15 Test Item Value Reference Range Interpretation Comments UA WBC (test code = 23 See_Comment [Automa jose r message] The UA WBC) system which ge nerated this result transmit jose r reference range : <=5. The reference range was not used to interpr et this result as jerrod l/abnormal. [facility] [id number] 15:44:15 Test Item Value Reference Range Interpretation Comments UA Nitrite (test code Negative (08/12/22 9:44 = UA Nitrite) AM) [facility] [id number] 15:44:15 Test Item Value Reference Range Interpretation Comments UA Leuk Est (test code Small *ABN*(08/12/22 = UA Leuk Est) 9:44 AM) [facility] [id number] 15:44:15 Test Item Value Reference Range Interpretation Comments UA RBC (test code = 6 See_Comment [Automa jose r message] The UA RBC) system which ge nerated this result transmit jose r reference range : <=2. The reference range was not used to interpr et this result as jerrod l/abnormal. [facility] [id number] 15:44:15 Test Item Value Reference Range Interpretation Comments UA Bacteria (test code = UA Occasional /HPF Bacteria) [facility] [id number] 15:44:15 Test Item Value Reference Range Interpretation Comments UA Mucus (test code = UA Mucus) Many /LPF [facility] [id number] 15:44:15 Test Item Value Reference Range Interpretation Comments UA Color (test code = Yellow *NA*(08/12/22 UA Color) 9:44 AM) [facility] [id number] 15:44:15 Test Item Value Reference Range Interpretation Comments UA Turbidity (test code = Clear (08/12/22 9:44 UA Turbidity) AM) [facility] [id number] 15:44:15 Test Item Value Reference Range Interpretation Comments U Preg (test code = U Positive *ABN*(08/12/22 Preg) 9:44 AM) [facility] [id number] 15:44:15 Test Item Value Reference Range Interpretation Comments UA Sq Epi (test code = UA Sq Epi) Many /LPF [facility] [id number] 15:44:15 Test Item Value Reference Range Interpretation Comments UA WBC (test code = 23 See_Comment [Automa jose r message] The UA WBC) system which ge nerated this result transmit jose r reference range : <=5. The reference range was not used to interpr et this result as jerrod l/abnormal. [facility] [id number] 15:44:15 Test Item Value Reference Range Interpretation Comments UA RBC (test code = 6 See_Comment [Automa jose r message] The UA RBC) system which ge nerated this result transmit jose r reference range : <=2. The reference range was not used to interpr et this result as jerrod l/abnormal. [facility] [id number] 15:44:15 Test Item Value Reference Range Interpretation Comments UA Bacteria (test code = UA Occasional /HPF Bacteria) [facility] [id number] 15:44:15 Test Item Value Reference Range Interpretation Comments UA Mucus (test code = UA Mucus) Many /LPF [facility] [id number] 15:44:15 Test Item Value Reference Range Interpretation Comments UA Color (test code = Yellow *NA*(08/12/22 UA Color) 9:44 AM) [facility] [id number] 15:44:15 Test Item Value Reference Range Interpretation Comments UA Turbidity (test code = Clear (08/12/22 9:44 UA Turbidity) AM) [facility] [id number] 15:44:15 Test Item Value Reference Range Interpretation Comments UA Spec Grav (test >=1.030 *ABN*(08/12/22 code = UA Spec Grav) 9:44 AM) [facility] [id number] 15:44:15 Test Item Value Reference Range Interpretation Comments UA pH (test code = UA pH) 6.0 1 5.0-8.0 [facility] [id number] 15:44:15 Test Item Value Reference Range Interpretation Comments UA Spec Grav (test >=1.030 *ABN*(08/12/22 code = UA Spec Grav) 9:44 AM) [facility] [id number] 15:44:15 Test Item Value Reference Range Interpretation Comments UA Protein (test code = UA Protein) 30 mg/dL [facility] AND [id number] 15:44:15 Test Item Value Reference Range Interpretation Comments UA Glucose (test code Negative (08/12/22 9:44 = UA Glucose) AM) [facility] AND [id number] 15:44:15 Test Item Value Reference Range Interpretation Comments UA Ketones (test code = >=80 *ABN*(08/12/22 UA Ketones) 9:44 AM) [facility] AND [id number] 15:44:15 Test Item Value Reference Range Interpretation Comments UA Bili (test code = Moderate *ABN*(08/12/22 UA Bili) 9:44 AM) [facility] AND [id number] 15:44:15 Test Item Value Reference Range Interpretation Comments UA Blood (test code = Negative (08/12/22 9:44 UA Blood) AM) [facility] AND [id number] 15:44:15 Test Item Value Reference Range Interpretation Comments UA Urobilinogen (test code = UA 4.0 0.1-1.0 Urobilinogen) [facility] AND [id number] 15:44:15 Test Item Value Reference Range Interpretation Comments UA Nitrite (test code Negative (08/12/22 9:44 = UA Nitrite) AM) [facility] AND [id number] 15:44:15 Test Item Value Reference Range Interpretation Comments UA Leuk Est (test code Small *ABN*(08/12/22 = UA Leuk Est) 9:44 AM) [facility] AND [id number] 15:44:15 Test Item Value Reference Range Interpretation Comments UA pH (test code = UA pH) 6.0 1 5.0-8.0 [facility] AND [id number] 15:44:15 Test Item Value Reference Range Interpretation Comments UA Protein (test code = UA Protein) 30 mg/dL [facility] AND [id number] 15:44:15 Test Item Value Reference Range Interpretation Comments UA Glucose (test code Negative (08/12/22 9:44 = UA Glucose) AM) [facility] AND [id number] 15:44:15 Test Item Value Reference Range Interpretation Comments UA Ketones (test code = >=80 *ABN*(08/12/22 UA Ketones) 9:44 AM) [facility] [id number] 15:44:15 Test Item Value Reference Range Interpretation Comments UA Bili (test code = Moderate *ABN*(08/12/22 UA Bili) 9:44 AM) [facility] [id number] 15:44:15 Test Item Value Reference Range Interpretation Comments UA Blood (test code = Negative (08/12/22 9:44 UA Blood) AM) [facility] [id number] 15:44:15 Test Item Value Reference Range Interpretation Comments UA Urobilinogen (test code = UA 4.0 0.1-1.0 Urobilinogen) [facility] [id number] 15:44:15 Test Item Value Reference Range Interpretation Comments UA Nitrite (test code Negative (08/12/22 9:44 = UA Nitrite) AM) [facility] [id number] 15:44:15 Test Item Value Reference Range Interpretation Comments UA Leuk Est (test code Small *ABN*(08/12/22 = UA Leuk Est) 9:44 AM) [facility] [id number] 15:44:15 Test Item Value Reference Range Interpretation Comments U Preg (test code = U Positive *ABN*(08/12/22 Preg) 9:44 AM) [facility] [id number] 15:44:15 Test Item Value Reference Range Interpretation Comments UA Sq Epi (test code = UA Sq Epi) Many /LPF [facility] [id number] 15:44:15 Test Item Value Reference Range Interpretation Comments UA WBC (test code = 23 See_Comment [Automa jose r message] The UA WBC) system which ge nerated this result transmit jose r reference range : <=5. The reference range was not used to interpr et this result as jerrod l/abnormal. [facility] [id number] 15:44:15 Test Item Value Reference Range Interpretation Comments UA RBC (test code = 6 See_Comment [Automa jose r message] The UA RBC) system which ge nerated this result transmit jose r reference range : <=2. The reference range was not used to interpr et this result as jerrod l/abnormal. [facility] AND [id number] 15:44:15 Test Item Value Reference Range Interpretation Comments UA Bacteria (test code = UA Occasional /HPF Bacteria) [facility] AND [id number] 15:44:15 Test Item Value Reference Range Interpretation Comments UA Mucus (test code = UA Mucus) Many /LPF [facility] AND [id number] 15:44:15 Test Item Value Reference Range Interpretation Comments UA Color (test code = Yellow *NA*(08/12/22 UA Color) 9:44 AM) [facility] AND [id number] 15:44:15 Test Item Value Reference Range Interpretation Comments UA Turbidity (test code = Clear (08/12/22 9:44 UA Turbidity) AM) [facility] AND [id number] 15:44:15 Test Item Value Reference Range Interpretation Comments UA Spec Grav (test >=1.030 *ABN*(08/12/22 code = UA Spec Grav) 9:44 AM) [facility] AND [id number] 15:44:15 Test Item Value Reference Range Interpretation Comments UA pH (test code = UA pH) 6.0 1 5.0-8.0 [facility] AND [id number] 15:44:15 Test Item Value Reference Range Interpretation Comments UA Protein (test code = UA Protein) 30 mg/dL [facility] AND [id number] 15:44:15 Test Item Value Reference Range Interpretation Comments UA Glucose (test code Negative (08/12/22 9:44 = UA Glucose) AM) [facility] AND [id number] 15:44:15 Test Item Value Reference Range Interpretation Comments UA Ketones (test code = >=80 *ABN*(08/12/22 UA Ketones) 9:44 AM) [facility] AND [id number] 15:44:15 Test Item Value Reference Range Interpretation Comments UA Bili (test code = Moderate *ABN*(08/12/22 UA Bili) 9:44 AM) [id number] 15:44:15 Test Item Value Reference Range Interpretation Comments U Preg (test code = U Positive *ABN*(08/12/22 Preg) 9:44 AM) [facility] [id number] 15:44:15 Test Item Value Reference Range Interpretation Comments UA Sq Epi (test code = UA Sq Epi) Many /LPF [facility] [id number] 15:44:15 Test Item Value Reference Range Interpretation Comments UA WBC (test code = 23 See_Comment [Automa jose r message] The UA WBC) system which ge nerated this result transmit jose r reference range : <=5. The reference range was not used to interpr et this result as jerrod l/abnormal. [facility] [id number] 15:44:15 Test Item Value Reference Range Interpretation Comments UA RBC (test code = 6 See_Comment [Automa jose r message] The UA RBC) system which ge nerated this result transmit jose r reference range : <=2. The reference range was not used to interpr et this result as jerrod l/abnormal. [facility] [id number] 15:44:15 Test Item Value Reference Range Interpretation Comments UA Bacteria (test code = UA Occasional /HPF Bacteria) [facility] [id number] 15:44:15 Test Item Value Reference Range Interpretation Comments UA Mucus (test code = UA Mucus) Many /LPF [facility] [id number] 15:44:15 Test Item Value Reference Range Interpretation Comments UA Color (test code = Yellow *NA*(08/12/22 UA Color) 9:44 AM) [facility] [id number] 15:44:15 Test Item Value Reference Range Interpretation Comments UA Turbidity (test code = Clear (08/12/22 9:44 UA Turbidity) AM) [facility] [id number] 15:44:15 Test Item Value Reference Range Interpretation Comments UA Blood (test code = Negative (08/12/22 9:44 UA Blood) AM) [facility] [id number] 15:44:15 Test Item Value Reference Range Interpretation Comments UA Spec Grav (test >=1.030 *ABN*(08/12/22 code = UA Spec Grav) 9:44 AM) [facility] [id number] 15:44:15 Test Item Value Reference Range Interpretation Comments UA pH (test code = UA pH) 6.0 1 5.0-8.0 [facility] AND [id number] 15:44:15 Test Item Value Reference Range Interpretation Comments UA Protein (test code = UA Protein) 30 mg/dL [facility] AND [id number] 15:44:15 Test Item Value Reference Range Interpretation Comments UA Glucose (test code Negative (08/12/22 9:44 = UA Glucose) AM) [facility] AND [id number] 15:44:15 Test Item Value Reference Range Interpretation Comments UA Ketones (test code = >=80 *ABN*(08/12/22 UA Ketones) 9:44 AM) [facility] AND [id number] 15:44:15 Test Item Value Reference Range Interpretation Comments UA Bili (test code = Moderate *ABN*(08/12/22 UA Bili) 9:44 AM) [facility] AND [id number] 15:44:15 Test Item Value Reference Range Interpretation Comments UA Blood (test code = Negative (08/12/22 9:44 UA Blood) AM) [facility] AND [id number] 15:44:15 Test Item Value Reference Range Interpretation Comments UA Urobilinogen (test code = UA 4.0 0.1-1.0 Urobilinogen) [facility] AND [id number] 15:44:15 Test Item Value Reference Range Interpretation Comments UA Nitrite (test code Negative (08/12/22 9:44 = UA Nitrite) AM) [facility] AND [id number] 15:44:15 Test Item Value Reference Range Interpretation Comments UA Leuk Est (test code Small *ABN*(08/12/22 = UA Leuk Est) 9:44 AM) [facility] AND [id number] 15:44:15 Test Item Value Reference Range Interpretation Comments UA Urobilinogen (test code = UA 4.0 0.1-1.0 Urobilinogen) [facility] AND [id number] 15:44:15 Test Item Value Reference Range Interpretation Comments UA Nitrite (test code Negative (08/12/22 9:44 = UA Nitrite) AM) [facility]2023-01-10 15:44:15 Test Item Value Reference Range Interpretation Comments UA Leuk Est (test code Small *ABN*(08/12/22 = UA Leuk Est) 9:44 AM) [facility]NincvqzDCXEBJEKRS5652-69-12 15:42:00 Test Item Value Reference Range Interpretation Comments MCHC (test code = MCHC) 34.0 32.0-36.0 [facility] CenterMhnbcvyIINPESZBLP3424-76-86 15:42:00 Test Item Value Reference Range Interpretation Comments RDW (test code = RDW) 13.4 11.5-14.5 [facility] CenterMvoceiuBMCJMUONNV4083-12-83 15:42:00 Test Item Value Reference Range Interpretation Comments Platelet (test code = Platelet) 235 133-450 [facility] CenterYsgmjlxJCNIMEIQGK0207-53-45 15:42:00 Test Item Value Reference Range Interpretation Comments MPV (test code = MPV) 8.7 7.4-10.4 [facility] CenterXszdrahMAFFKBMKOQ8083-69-21 15:42:00 Test Item Value Reference Range Interpretation Comments Segs (test code = Segs) 84.7 45.0-75.0 [facility] CenterQoqbpuzKQLCXZPAKJ3184-44-97 15:42:00 Test Item Value Reference Range Interpretation Comments Lymphocytes (test code = Lymphocytes) 11.0 20.0-40.0 [facility] CenterVgiaftwMJLPNMEQCA1855-02-94 15:42:00 Test Item Value Reference Range Interpretation Comments Monocytes (test code = Monocytes) 3.5 2.0-12.0 [facility] CenterLaegqxxEANGNTTGHT5083-65-36 15:42:00 Test Item Value Reference Range Interpretation Comments Eosinophils (test code = 0.3 See_Comment [A utomated message] The Eosinophils) system which ge nerated this result tra nsmitted reference range : <=4.0. The reference r belen was not used to int erpret this result as normal/abnormal . [facility] CenterPhgqtpuMFHKZQTYZB5832-21-65 15:42:00 Test Item Value Reference Range Interpretation Comments Basophils (test code = 0.5 See_Comment [Aut omated message] The Basophils) system which ge nerated this result tra nsmitted reference range : <=1.0. The reference r belen was not used to int erpret this result as normal/abnormal . [facility] CenterWmasscdQGNUPZMGYK7876-35-63 15:42:00 Test Item Value Reference Range Interpretation Comments Neutrophils # (test code = Neutrophils 10.6 1.5-8.1 #) [facility] CenterAuflpaxMXSAHVITKS9222-12-58 15:42:00 Test Item Value Reference Range Interpretation Comments Lymphocytes # (test code = Lymphocytes 1.4 1.0-5.5 #) [facility] CenterSbyksxjLBZYCAAVXM6587-81-02 15:42:00 Test Item Value Reference Range Interpretation Comments Monocytes # (test code 0.4 See_Comment [Aut omated message] The = Monocytes #) system which generated this result tra nsmitted reference range : <=0.8. The reference r belen was not used to int erpret this result as normal/abnormal . [facility] CenterKfoznhnRRVYUSOZSI1404-53-85 15:42:00 Test Item Value Reference Range Interpretation Comments Basophils # (test code 0.1 See_Comment [Aut omated message] The = Basophils #) system which generated this result tra nsmitted reference range : <=0.2. The reference r belen was not used to int erpret this result as normal/abnormal . [facility]TsygsfmRTSXRHKPB7124-20-04 15:42:00 Test Item Value Reference Range Interpretation Comments Glucose Lvl (test code = Glucose Lvl) 86 70-99 [facility] HospitalBhvszeeDAWVBTFLO7962-32-90 15:42:00 Test Item Value Reference Range Interpretation Comments BUN (test code = BUN) 7 7-22 [facility] HospitalBdwhibuKKQKOZPAM8156-86-41 15:42:00 Test Item Value Reference Range Interpretation Comments Creatinine Lvl (test code = Creatinine 0.50 0.50-1.40 Lvl) [facility] HospitalMzfwmrwRAUXJOBGG1111-73-89 15:42:00 Test Item Value Reference Range Interpretation Comments Sodium Lvl (test code = Sodium Lvl) 137 135-145 [facility] HospitalHwjntktBDSVZUUCS2536-98-78 15:42:00 Test Item Value Reference Range Interpretation Comments Potassium Lvl (test code = Potassium 3.4 3.5-5.1 Lvl) [facility] HospitalRjqniaaDZWWCSGUV2244-99-38 15:42:00 Test Item Value Reference Range Interpretation Comments Chloride Lvl (test code = Chloride Lvl) 103 95-109 [facility] HospitalDxbviuiIIIDHKEYD1146-33-86 15:42:00 Test Item Value Reference Range Interpretation Comments CO2 (test code = CO2) 24 24-32 [facility] HospitalWmtkqvsYWRTZBFGH6063-65-47 15:42:00 Test Item Value Reference Range Interpretation Comments Calcium Lvl (test code = Calcium Lvl) 9.6 8.5-10.5 [facility] HospitalYaqqfjaMDODVKWUU7094-95-89 15:42:00 Test Item Value Reference Range Interpretation Comments AGAP (test code = AGAP) 13.4 10.0-20.0 [facility] HospitalZxtimawAJSJNAEKW2647-14-86 15:42:00 Test Item Value Reference Range Interpretation Comments eGFR (test code = eGFR) 136 [facility] HospitalNstwlqdQYSTVLPRO2554-07-42 15:42:00 Test Item Value Reference Range Interpretation Comments Total Protein (test code = Total 7.9 6.4-8.4 Protein) [facility] HospitalWfjhtrkFUIBCLRBY2589-68-90 15:42:00 Test Item Value Reference Range Interpretation Comments Albumin Lvl (test code = Albumin Lvl) 3.8 3.5-5.0 [facility] HospitalReyamzePCGLSOXFH4330-21-87 15:42:00 Test Item Value Reference Range Interpretation Comments ALANINE AMINOTRANSFERASE 48 See_Comment [A utomated message] (test code = ALANINE The sys tem which AMINOTRANSFERASE) generated this result transmitted ref erence range: <=65. Th e reference range was not used to int erpret this result as normal/abnormal . [facility] HospitalIdrfpjmYHIIEWVVC7824-36-24 15:42:00 Test Item Value Reference Range Interpretation Comments AST (test code = AST) 19 See_Comment [Auto mated message] The system which ge nerated this result transmit jose r reference range : <=37. The reference range was not used to interpr et this result as jerrod l/abnormal. [facility] HospitalXgcspuxGBKIDLMOV6615-18-87 15:42:00 Test Item Value Reference Range Interpretation Comments Alk Phos (test code = Alk Phos) 79 39-136 [facility] HospitalMctbvtfEEOUFUJPX6609-15-18 15:42:00 Test Item Value Reference Range Interpretation Comments Bili Total (test code = Bili Total) 1.2 0.2-1.3 [facility] HospitalMjbiebiAFVLFECXV8692-47-88 15:42:00 Test Item Value Reference Range Interpretation Comments Bili Direct (test code 0.4 See_Comment [Aut omated message] The = Bili Direct) system which generated this result tra nsmitted reference range : <=0.3. The reference r belen was not used to int erpret this result as jerrdo l/abnormal. [facility] HospitalYvatlsrJICCASWED4178-05-87 15:42:00 Test Item Value Reference Range Interpretation Comments Bili Indirect (test 0.8 See_Comment [Automa jose r message] The code = Bili Indirect) system which generated this result tra nsmitted reference range : <=1.0. The reference r belen was not used to int erpret this result as normal/abnormal . [facility] HospitalLtaillzXBJHAGJOG4345-72-28 15:42:00 Test Item Value Reference Range Interpretation Comments Globulin (test code = Globulin) 4.1 2.7-4.2 [facility] HospitalRfunhlrUSBEQOKKB7810-87-61 15:42:00 Test Item Value Reference Range Interpretation Comments A/G Ratio (test code = A/G Ratio) 0.9 1 0.7-1.6 [facility] HospitalNoeyyeaAPFSMFZBB3188-10-36 15:42:00 Test Item Value Reference Range Interpretation Comments Lipase Lvl (test code = Lipase Lvl) 57 73-393 [facility] CenterFxqksxuZBONNFXAVX5277-69-52 15:42:00 Test Item Value Reference Range Interpretation Comments WBC X 10x3 (test code = WBC X 10x3) 12.5 3.7-10.4 [facility] CenterHqvocigVBKUXNWMCQ0897-14-04 15:42:00 Test Item Value Reference Range Interpretation Comments RBC X 10x6 (test code = RBC X 10x6) 4.56 4.20-5.40 [facility] CenterYbjasbtBIJBLIJXJN2825-53-42 15:42:00 Test Item Value Reference Range Interpretation Comments Hgb (test code = Hgb) 13.4 12.0-16.0 [facility] CenterGthfbovPPCTZKGXZW4042-91-47 15:42:00 Test Item Value Reference Range Interpretation Comments Hct (test code = Hct) 39.5 36.0-48.0 [facility] CenterOvscfjkTBEQDYZZEO9145-35-18 15:42:00 Test Item Value Reference Range Interpretation Comments MCV (test code = MCV) 86.6 80.0-98.0 [facility] CenterJrfngwrSBUQSOXDBF2185-97-01 15:42:00 Test Item Value Reference Range Interpretation Comments MCH (test code = MCH) 29.5 pg 27.0-31.0 [place] 403023-01-10 15:42:00 Test Item Value Reference Range Interpretation Comments MCHC (test code = MCHC) 34.0 32.0-36.0 [place] 403023-01-10 15:42:00 Test Item Value Reference Range Interpretation Comments RDW (test code = RDW) 13.4 11.5-14.5 [place] 403023-01-10 15:42:00 Test Item Value Reference Range Interpretation Comments Platelet (test code = Platelet) 235 133-450 [place] 403023-01-10 15:42:00 Test Item Value Reference Range Interpretation Comments MPV (test code = MPV) 8.7 7.4-10.4 [place] 403023-01-10 15:42:00 Test Item Value Reference Range Interpretation Comments Segs (test code = Segs) 84.7 45.0-75.0 [place] 403023-01-10 15:42:00 Test Item Value Reference Range Interpretation Comments Lymphocytes (test code = Lymphocytes) 11.0 20.0-40.0 [place] 403023-01-10 15:42:00 Test Item Value Reference Range Interpretation Comments Monocytes (test code = Monocytes) 3.5 2.0-12.0 [place] 403023-01-10 15:42:00 Test Item Value Reference Range Interpretation Comments Eosinophils (test code = 0.3 See_Comment [A utomated message] The Eosinophils) system which ge nerated this result tra nsmitted reference range : <=4.0. The reference r belen was not used to int erpret this result as normal/abnormal . [facility] CenterAexopldPIJPMHIRHB5364-40-05 15:42:00 Test Item Value Reference Range Interpretation Comments Basophils (test code = 0.5 See_Comment [Aut omated message] The Basophils) system which ge nerated this result tra nsmitted reference range : <=1.0. The reference r belen was not used to int erpret this result as normal/abnormal . [place] 403023-01-10 15:42:00 Test Item Value Reference Range Interpretation Comments Neutrophils # (test code = Neutrophils 10.6 1.5-8.1 #) [place] 403023-01-10 15:42:00 Test Item Value Reference Range Interpretation Comments Lymphocytes # (test code = Lymphocytes 1.4 1.0-5.5 #) [facility] CenterPhcbytuUFYWLXJWDX1822-49-18 15:42:00 Test Item Value Reference Range Interpretation Comments Monocytes # (test code 0.4 See_Comment [Aut omated message] The = Monocytes #) system which generated this result tra nsmitted reference range : <=0.8. The reference r belen was not used to int erpret this result as normal/abnormal . [facility] CenterFhydwooRYAORGASAP9025-40-55 15:42:00 Test Item Value Reference Range Interpretation Comments Basophils # (test code 0.1 See_Comment [Aut omated message] The = Basophils #) system which generated this result tra nsmitted reference range : <=0.2. The reference r belen was not used to int erpret this result as normal/abnormal . [facility] HospitalCfcramvZPGBUALYJ9221-12-46 15:42:00 Test Item Value Reference Range Interpretation Comments Glucose Lvl (test code = Glucose Lvl) 86 70-99 [facility] HospitalWjmkfenJEHQBQMMP4881-79-63 15:42:00 Test Item Value Reference Range Interpretation Comments BUN (test code = BUN) 7 7-22 [facility] HospitalWsefcpcITSQWGYLM3494-44-91 15:42:00 Test Item Value Reference Range Interpretation Comments Creatinine Lvl (test code = Creatinine 0.50 0.50-1.40 Lvl) [facility] HospitalRlggqqjEHYXFVXQE3127-00-66 15:42:00 Test Item Value Reference Range Interpretation Comments Sodium Lvl (test code = Sodium Lvl) 137 135-145 [facility] HospitalGtxfthtNHGRTIWOH2240-97-80 15:42:00 Test Item Value Reference Range Interpretation Comments Potassium Lvl (test code = Potassium 3.4 3.5-5.1 Lvl) [facility] HospitalTwrdmrwSNUWBLWHS7950-20-63 15:42:00 Test Item Value Reference Range Interpretation Comments Chloride Lvl (test code = Chloride Lvl) 103 95-109 [facility] HospitalYhtkjyeBRAMVWIAZ7738-60-78 15:42:00 Test Item Value Reference Range Interpretation Comments CO2 (test code = CO2) 24 24-32 [facility] HospitalAbyrtqfHENKDDTLJ9178-18-39 15:42:00 Test Item Value Reference Range Interpretation Comments Calcium Lvl (test code = Calcium Lvl) 9.6 8.5-10.5 [facility] HospitalEnllzwzZGGZRGSOR8495-52-77 15:42:00 Test Item Value Reference Range Interpretation Comments AGAP (test code = AGAP) 13.4 10.0-20.0 [facility] HospitalXmjhifwTQJLPZEVC4447-35-39 15:42:00 Test Item Value Reference Range Interpretation Comments eGFR (test code = eGFR) 136 [facility] HospitalJtcqpyfINLQTNRGL4580-18-84 15:42:00 Test Item Value Reference Range Interpretation Comments Total Protein (test code = Total 7.9 6.4-8.4 Protein) [facility] HospitalIydysxiTWFVNBICC8323-52-61 15:42:00 Test Item Value Reference Range Interpretation Comments Albumin Lvl (test code = Albumin Lvl) 3.8 3.5-5.0 [facility] HospitalNphhrmvLQAFNLVNV0246-82-45 15:42:00 Test Item Value Reference Range Interpretation Comments ALANINE AMINOTRANSFERASE 48 See_Comment [A utomated message] (test code = ALANINE The sys tem which AMINOTRANSFERASE) generated this result transmitted ref erence range: <=65. Th e reference range was not used to int erpret this result as normal/abnormal . [facility] HospitalBvetsqtJTIRCJTZN9731-78-80 15:42:00 Test Item Value Reference Range Interpretation Comments AST (test code = AST) 19 See_Comment [Auto mated message] The system which ge nerated this result transmit jose r reference range : <=37. The reference range was not used to interpr et this result as jerrod l/abnormal. [facility] HospitalFhzvndtVEUOQNOHI5295-90-04 15:42:00 Test Item Value Reference Range Interpretation Comments Alk Phos (test code = Alk Phos) 79 39-136 [facility] HospitalMtyipxnJUNLOTCMQ7071-53-12 15:42:00 Test Item Value Reference Range Interpretation Comments Bili Total (test code = Bili Total) 1.2 0.2-1.3 [facility] HospitalTrbjtfkXHVVCTKBL8952-71-20 15:42:00 Test Item Value Reference Range Interpretation Comments Bili Direct (test code 0.4 See_Comment [Aut omated message] The = Bili Direct) system which generated this result tra nsmitted reference range : <=0.3. The reference r belen was not used to int erpret this result as jerrod l/abnormal. [facility] HospitalHexzdywMAUBEIRVR0683-34-18 15:42:00 Test Item Value Reference Range Interpretation Comments Bili Indirect (test 0.8 See_Comment [Automa jose r message] The code = Bili Indirect) system which generated this result tra nsmitted reference range : <=1.0. The reference r belen was not used to int erpret this result as normal/abnormal . [facility] HospitalYiqxeakDQOKOBXWE4761-75-67 15:42:00 Test Item Value Reference Range Interpretation Comments Globulin (test code = Globulin) 4.1 2.7-4.2 [facility] HospitalPmhbfwxYQLHYRFJR7015-09-25 15:42:00 Test Item Value Reference Range Interpretation Comments A/G Ratio (test code = A/G Ratio) 0.9 1 0.7-1.6 [place] 702863-01-10 15:42:00 Test Item Value Reference Range Interpretation Comments Lipase Lvl (test code = Lipase Lvl) 57 73-393 [facility] CenterXvtbeisLDTUPHQNPH6096-66-78 15:42:00 Test Item Value Reference Range Interpretation Comments WBC X 10x3 (test code = WBC X 10x3) 12.5 3.7-10.4 [facility] CenterOamgmhvNEUCARHIBX7761-52-15 15:42:00 Test Item Value Reference Range Interpretation Comments RBC X 10x6 (test code = RBC X 10x6) 4.56 4.20-5.40 [facility] CenterLyvonyhZVOAPIRKCW3968-16-47 15:42:00 Test Item Value Reference Range Interpretation Comments Hgb (test code = Hgb) 13.4 12.0-16.0 [facility] CenterEfbhwinQMYDKBUCXF6712-67-63 15:42:00 Test Item Value Reference Range Interpretation Comments Hct (test code = Hct) 39.5 36.0-48.0 [facility] CenterLnbzejyHFRQYOJWOX3101-39-38 15:42:00 Test Item Value Reference Range Interpretation Comments MCV (test code = MCV) 86.6 80.0-98.0 [facility] CenterGwjsgzuBAYSYMMSTV9235-21-73 15:42:00 Test Item Value Reference Range Interpretation Comments MCH (test code = MCH) 29.5 pg 27.0-31.0 [facility] CenterXxpyacyLVVATQSSJJ7547-47-83 15:42:00 Test Item Value Reference Range Interpretation Comments MCHC (test code = MCHC) 34.0 32.0-36.0 [facility] CenterFblsnhfSFUENZFQWQ2700-57-27 15:42:00 Test Item Value Reference Range Interpretation Comments RDW (test code = RDW) 13.4 11.5-14.5 [place] 403023-01-10 15:42:00 Test Item Value Reference Range Interpretation Comments Platelet (test code = Platelet) 235 133-450 [place] 403023-01-10 15:42:00 Test Item Value Reference Range Interpretation Comments MPV (test code = MPV) 8.7 7.4-10.4 [place] 403023-01-10 15:42:00 Test Item Value Reference Range Interpretation Comments Segs (test code = Segs) 84.7 45.0-75.0 [place] 403023-01-10 15:42:00 Test Item Value Reference Range Interpretation Comments Lymphocytes (test code = Lymphocytes) 11.0 20.0-40.0 [place] 403023-01-10 15:42:00 Test Item Value Reference Range Interpretation Comments Monocytes (test code = Monocytes) 3.5 2.0-12.0 [facility] CenterAdwkyxcKHLHBHDVLR3713-48-60 15:42:00 Test Item Value Reference Range Interpretation Comments Eosinophils (test code = 0.3 See_Comment [A utomated message] The Eosinophils) system which ge nerated this result tra nsmitted reference range : <=4.0. The reference r belen was not used to int erpret this result as normal/abnormal . [place] 403023-01-10 15:42:00 Test Item Value Reference Range Interpretation Comments Basophils (test code = 0.5 See_Comment [Aut omated message] The Basophils) system which ge nerated this result tra nsmitted reference range : <=1.0. The reference r belen was not used to int erpret this result as normal/abnormal . [facility] CenterPwlamsgYOCNBSKQBU7857-63-14 15:42:00 Test Item Value Reference Range Interpretation Comments Neutrophils # (test code = Neutrophils 10.6 1.5-8.1 #) [facility] CenterAxdttjxKGRIONBLTL8805-95-97 15:42:00 Test Item Value Reference Range Interpretation Comments Lymphocytes # (test code = Lymphocytes 1.4 1.0-5.5 #) [place] 403023-01-10 15:42:00 Test Item Value Reference Range Interpretation Comments Monocytes # (test code 0.4 See_Comment [Aut omated message] The = Monocytes #) system which generated this result tra nsmitted reference range : <=0.8. The reference r belen was not used to int erpret this result as normal/abnormal . [facility] CenterCozaoqsXVUGYIXVQM9885-25-74 15:42:00 Test Item Value Reference Range Interpretation Comments Basophils # (test code 0.1 See_Comment [Aut omated message] The = Basophils #) system which generated this result tra nsmitted reference range : <=0.2. The reference r belen was not used to int erpret this result as normal/abnormal . [facility] HospitalBtwhbiyIVYOINQGJ3452-98-57 15:42:00 Test Item Value Reference Range Interpretation Comments Glucose Lvl (test code = Glucose Lvl) 86 70-99 [facility] HospitalQbfujcxQKATKRDKB5686-09-61 15:42:00 Test Item Value Reference Range Interpretation Comments BUN (test code = BUN) 7 7-22 [facility] HospitalOrlcfnnGAVIPUWXW1602-08-60 15:42:00 Test Item Value Reference Range Interpretation Comments Creatinine Lvl (test code = Creatinine 0.50 0.50-1.40 Lvl) [facility] HospitalQsbtkqeCQSNDVIOY4106-94-13 15:42:00 Test Item Value Reference Range Interpretation Comments Sodium Lvl (test code = Sodium Lvl) 137 135-145 [facility] HospitalKoqgngiDXQHIEAMC0573-50-66 15:42:00 Test Item Value Reference Range Interpretation Comments Potassium Lvl (test code = Potassium 3.4 3.5-5.1 Lvl) [facility] HospitalXbwzodkJCSCTFADV8917-90-60 15:42:00 Test Item Value Reference Range Interpretation Comments Chloride Lvl (test code = Chloride Lvl) 103 95-109 [facility] HospitalMcluolgGBPMTDXHG7855-60-33 15:42:00 Test Item Value Reference Range Interpretation Comments CO2 (test code = CO2) 24 24-32 [facility] HospitalWekybwcXZIFTJCCQ6291-75-49 15:42:00 Test Item Value Reference Range Interpretation Comments Calcium Lvl (test code = Calcium Lvl) 9.6 8.5-10.5 [facility] HospitalApoghbuVPBDCNRBW8859-44-19 15:42:00 Test Item Value Reference Range Interpretation Comments AGAP (test code = AGAP) 13.4 10.0-20.0 [facility] HospitalCtiphgfNMFNBXOQQ5805-75-36 15:42:00 Test Item Value Reference Range Interpretation Comments eGFR (test code = eGFR) 136 [facility] HospitalVuxliwmKLZENXOXQ6059-94-96 15:42:00 Test Item Value Reference Range Interpretation Comments Total Protein (test code = Total 7.9 6.4-8.4 Protein) [facility] HospitalXzzenghGIKTBHQZW9608-69-99 15:42:00 Test Item Value Reference Range Interpretation Comments Albumin Lvl (test code = Albumin Lvl) 3.8 3.5-5.0 [facility] HospitalJnotopcIWWCGVTBN2770-61-98 15:42:00 Test Item Value Reference Range Interpretation Comments ALANINE AMINOTRANSFERASE 48 See_Comment [A utomated message] (test code = ALANINE The sys tem which AMINOTRANSFERASE) generated this result transmitted ref erence range: <=65. Th e reference range was not used to int erpret this result as normal/abnormal . [facility] HospitalLkansmkXZNPCUKHT3609-87-39 15:42:00 Test Item Value Reference Range Interpretation Comments AST (test code = AST) 19 See_Comment [Auto mated message] The system which ge nerated this result transmit jose r reference range : <=37. The reference range was not used to interpr et this result as jerrod l/abnormal. [facility] HospitalGdrlpgmJMZPMQRHY2350-35-21 15:42:00 Test Item Value Reference Range Interpretation Comments Alk Phos (test code = Alk Phos) 79 39-136 [facility] HospitalJlivhayEWBRIOLFU4639-73-59 15:42:00 Test Item Value Reference Range Interpretation Comments Bili Total (test code = Bili Total) 1.2 0.2-1.3 [facility] HospitalGnbtpocSLVRABBUA4952-44-93 15:42:00 Test Item Value Reference Range Interpretation Comments Bili Direct (test code 0.4 See_Comment [Aut omated message] The = Bili Direct) system which generated this result tra nsmitted reference range : <=0.3. The reference r belen was not used to int erpret this result as jerrod l/abnormal. [facility] HospitalEmprgqnQLUKYUMAB8068-35-68 15:42:00 Test Item Value Reference Range Interpretation Comments Bili Indirect (test 0.8 See_Comment [Automa jose r message] The code = Bili Indirect) system which generated this result tra nsmitted reference range : <=1.0. The reference r belen was not used to int erpret this result as normal/abnormal . [facility] HospitalBhuqckvHFZBQDJYW3818-72-62 15:42:00 Test Item Value Reference Range Interpretation Comments Globulin (test code = Globulin) 4.1 2.7-4.2 [facility] HospitalGuyveznFXFJKEIDU9000-74-36 15:42:00 Test Item Value Reference Range Interpretation Comments A/G Ratio (test code = A/G Ratio) 0.9 1 0.7-1.6 [facility] HospitalNpibapaJFAYCHBPZ9461-77-80 15:42:00 Test Item Value Reference Range Interpretation Comments Lipase Lvl (test code = Lipase Lvl) 57 73-393 [facility] CenterLlkoqteJERGJUYFIE5944-19-02 15:42:00 Test Item Value Reference Range Interpretation Comments WBC X 10x3 (test code = WBC X 10x3) 12.5 3.7-10.4 [facility] CenterWbuhyepHNGTLUQZPD3008-59-21 15:42:00 Test Item Value Reference Range Interpretation Comments RBC X 10x6 (test code = RBC X 10x6) 4.56 4.20-5.40 [facility] CenterOddfndrYRAVEHCMSM9922-82-32 15:42:00 Test Item Value Reference Range Interpretation Comments Hgb (test code = Hgb) 13.4 12.0-16.0 [facility] CenterNihvxwoUKBBWIPNSC7586-29-00 15:42:00 Test Item Value Reference Range Interpretation Comments Hct (test code = Hct) 39.5 36.0-48.0 [facility] CenterNmlknzxQOLNJDXHKN4488-54-22 15:42:00 Test Item Value Reference Range Interpretation Comments MCV (test code = MCV) 86.6 80.0-98.0 [facility] CenterLfcucsoJGYABFSKEJ3347-48-13 15:42:00 Test Item Value Reference Range Interpretation Comments MCH (test code = MCH) 29.5 pg 27.0-31.0 [facility] CenterMuwuqkfYKSCHRDTWU7681-14-89 15:42:00 Test Item Value Reference Range Interpretation Comments MCHC (test code = MCHC) 34.0 32.0-36.0 [facility]JsrfxwxAJAKUFJBOU0018-33-56 15:42:00 Test Item Value Reference Range Interpretation Comments RDW (test code = RDW) 13.4 11.5-14.5 [facility] CenterWgjhrukODWDVCOQVJ9480-21-11 15:42:00 Test Item Value Reference Range Interpretation Comments Platelet (test code = Platelet) 235 133-450 [facility] CenterPqufypfQYIQPKUSVE4109-04-20 15:42:00 Test Item Value Reference Range Interpretation Comments MPV (test code = MPV) 8.7 7.4-10.4 [facility] CenterRhldwacVPZPBGQEQL3880-58-48 15:42:00 Test Item Value Reference Range Interpretation Comments Segs (test code = Segs) 84.7 45.0-75.0 [facility] CenterEhdwpcuGKOGYSHQBE6152-89-99 15:42:00 Test Item Value Reference Range Interpretation Comments Lymphocytes (test code = Lymphocytes) 11.0 20.0-40.0 [place] 403023-01-10 15:42:00 Test Item Value Reference Range Interpretation Comments Monocytes (test code = Monocytes) 3.5 2.0-12.0 [facility] CenterLnagxtbVALWJJYTFD2520-13-00 15:42:00 Test Item Value Reference Range Interpretation Comments Eosinophils (test code = 0.3 See_Comment [A utomated message] The Eosinophils) system which ge nerated this result tra nsmitted reference range : <=4.0. The reference r belen was not used to int erpret this result as normal/abnormal . [facility] CenterOjhkblrMQQVOYRRYA6711-75-33 15:42:00 Test Item Value Reference Range Interpretation Comments Basophils (test code = 0.5 See_Comment [Aut omated message] The Basophils) system which ge nerated this result tra nsmitted reference range : <=1.0. The reference r belen was not used to int erpret this result as normal/abnormal . [facility] CenterJqnxoreLJXRZXJQGZ7171-84-85 15:42:00 Test Item Value Reference Range Interpretation Comments Neutrophils # (test code = Neutrophils 10.6 1.5-8.1 #) [facility] CenterShuqetvWKCMPKZLFK3797-66-88 15:42:00 Test Item Value Reference Range Interpretation Comments Lymphocytes # (test code = Lymphocytes 1.4 1.0-5.5 #) [place] [address]-01-10 15:42:00 Test Item Value Reference Range Interpretation Comments Monocytes # (test code 0.4 See_Comment [Aut omated message] The = Monocytes #) system which generated this result tra nsmitted reference range : <=0.8. The reference r belen was not used to int erpret this result as normal/abnormal . [facility] CenterPgkxlbvISYMYPZRQL5917-02-25 15:42:00 Test Item Value Reference Range Interpretation Comments Basophils # (test code 0.1 See_Comment [Aut omated message] The = Basophils #) system which generated this result tra nsmitted reference range : <=0.2. The reference r belen was not used to int erpret this result as normal/abnormal . [facility]CxemhtoUQHQICOAV4367-81-[facility] 15:42:00 Test Item Value Reference Range Interpretation Comments Glucose Lvl (test code = Glucose Lvl) 86 70-99 [facility] HospitalNumapxzKJKTZGLRY6769-15-37 15:42:00 Test Item Value Reference Range Interpretation Comments BUN (test code = BUN) 7 7-22 [facility] HospitalZucwrhyKAWCLYSDE6622-08-48 15:42:00 Test Item Value Reference Range Interpretation Comments Creatinine Lvl (test code = Creatinine 0.50 0.50-1.40 Lvl) [facility] HospitalJflrenpKWLRIBYRR4702-32-77 15:42:00 Test Item Value Reference Range Interpretation Comments Sodium Lvl (test code = Sodium Lvl) 137 135-145 [facility] HospitalTtwszpyOWRPGERFT8467-39-88 15:42:00 Test Item Value Reference Range Interpretation Comments Potassium Lvl (test code = Potassium 3.4 3.5-5.1 Lvl) [facility] HospitalUxkbaclDKIBPXNYW2049-96-21 15:42:00 Test Item Value Reference Range Interpretation Comments Chloride Lvl (test code = Chloride Lvl) 103 95-109 [facility] HospitalEeigcbrCWLRTWYWB8518-07-52 15:42:00 Test Item Value Reference Range Interpretation Comments CO2 (test code = CO2) 24 24-32 [facility] HospitalTjghiuqSWJXMQZEP2863-43-69 15:42:00 Test Item Value Reference Range Interpretation Comments Calcium Lvl (test code = Calcium Lvl) 9.6 8.5-10.5 [facility] HospitalBoxjfwdGVHYNMEGY3956-32-30 15:42:00 Test Item Value Reference Range Interpretation Comments AGAP (test code = AGAP) 13.4 10.0-20.0 [facility] HospitalNgucmvlKMAGTSXKR0415-93-92 15:42:00 Test Item Value Reference Range Interpretation Comments eGFR (test code = eGFR) 136 [facility] HospitalUnpozljJYQDJSVDJ5502-99-46 15:42:00 Test Item Value Reference Range Interpretation Comments Total Protein (test code = Total 7.9 6.4-8.4 Protein) [facility]up[facility]lrIHJSPQFTR9346-21-01 15:42:00 Test Item Value Reference Range Interpretation Comments Albumin Lvl (test code = Albumin Lvl) 3.8 3.5-5.0 [facility] HospitalEmmcifuSXZDVVLUB6589-38-25 15:42:00 Test Item Value Reference Range Interpretation Comments ALANINE AMINOTRANSFERASE 48 See_Comment [A utomated message] (test code = ALANINE The sys tem which AMINOTRANSFERASE) generated this result transmitted ref erence range: <=65. Th e reference range was not used to int erpret this result as normal/abnormal . [facility] HospitalQrhdrylFTHLNUXIN7855-56-76 15:42:00 Test Item Value Reference Range Interpretation Comments AST (test code = AST) 19 See_Comment [Auto mated message] The system which ge nerated this result transmit jose r reference range : <=37. The reference range was not used to interpr et this result as jerrod l/abnormal. [facility] HospitalUxfyhlnAAHJNWDTN9037-17-77 15:42:00 Test Item Value Reference Range Interpretation Comments Alk Phos (test code = Alk Phos) 79 39-136 [facility]OqxbsyuFRSNTHJDF2467-59-42 15:42:00 Test Item Value Reference Range Interpretation Comments Bili Total (test code = Bili Total) 1.2 0.2-1.3 [facility] HospitalXtxldurNILXUTTSR8565-27-08 15:42:00 Test Item Value Reference Range Interpretation Comments Bili Direct (test code 0.4 See_Comment [Aut omated message] The = Bili Direct) system which generated this result tra nsmitted reference range : <=0.3. The reference r belen was not used to int erpret this result as jerrod l/abnormal. [facility] HospitalBnpkucuDVTXTOJVJ3530-27-53 15:42:00 Test Item Value Reference Range Interpretation Comments Bili Indirect (test 0.8 See_Comment [Automa jose r message] The code = Bili Indirect) system which generated this result tra nsmitted reference range : <=1.0. The reference r belen was not used to int erpret this result as normal/abnormal . [facility] HospitalKfywevzJYLQVADCE7863-33-84 15:42:00 Test Item Value Reference Range Interpretation Comments Globulin (test code = Globulin) 4.1 2.7-4.2 [facility] HospitalPyryflsDZUNAKTQG5219-26-75 15:42:00 Test Item Value Reference Range Interpretation Comments A/G Ratio (test code = A/G Ratio) 0.9 1 0.7-1.6 [facility] HospitalPqqfwziDBLNHLUPO4605-71-24 15:42:00 Test Item Value Reference Range Interpretation Comments Lipase Lvl (test code = Lipase Lvl) 57 73-393 [facility] CenterUuhhqnzWRNWORYAAZ9344-07-16 15:42:00 Test Item Value Reference Range Interpretation Comments WBC X 10x3 (test code = WBC X 10x3) 12.5 3.7-10.4 [facility] CenterSaxpwonCUDMHSQWLR9237-16-43 15:42:00 Test Item Value Reference Range Interpretation Comments RBC X 10x6 (test code = RBC X 10x6) 4.56 4.20-5.40 [facility] CenterQospkmbHTHJPOJMGR2508-92-57 15:42:00 Test Item Value Reference Range Interpretation Comments Hgb (test code = Hgb) 13.4 12.0-16.0 [facility] CenterVnauxybJGUHPELOQU3253-87-24 15:42:00 Test Item Value Reference Range Interpretation Comments Hct (test code = Hct) 39.5 36.0-48.0 [facility] CenterLnpsoyxMPYIXPPEOF6440-76-10 15:42:00 Test Item Value Reference Range Interpretation Comments MCV (test code = MCV) 86.6 80.0-98.0 [facility] CenterCxirrelBDBNUSOUHN2205-91-65 15:42:00 Test Item Value Reference Range Interpretation Comments MCH (test code = MCH) 29.5 pg 27.0-31.0 [facility] CenterKsgnzcpPSYDFMKNNH6082-67-18 15:42:00 Test Item Value Reference Range Interpretation Comments MCHC (test code = MCHC) 34.0 32.0-36.0 [facility] CenterBdxlitoMNPVHBDUJO9646-82-57 15:42:00 Test Item Value Reference Range Interpretation Comments RDW (test code = RDW) 13.4 11.5-14.5 [facility] CenterTxgzhdeDLZKPPCGTA6533-20-07 15:42:00 Test Item Value Reference Range Interpretation Comments Platelet (test code = Platelet) 235 133-450 [facility] HospitalKokxaozPMWGDKDBU1457-79-72 15:42:00 Test Item Value Reference Range Interpretation Comments Glucose Lvl (test code = Glucose Lvl) 86 70-99 [place] [address]-01-10 15:42:00 Test Item Value Reference Range Interpretation Comments MPV (test code = MPV) 8.7 7.4-10.4 [place] 403023-01-10 15:42:00 Test Item Value Reference Range Interpretation Comments Segs (test code = Segs) 84.7 45.0-75.0 [place] 403023-01-10 15:42:00 Test Item Value Reference Range Interpretation Comments Lymphocytes (test code = Lymphocytes) 11.0 20.0-40.0 [place] [address]-01-10 15:42:00 Test Item Value Reference Range Interpretation Comments Monocytes (test code = Monocytes) 3.5 2.0-12.0 [place] [address]-01-10 15:42:00 Test Item Value Reference Range Interpretation Comments Eosinophils (test code = 0.3 See_Comment [A utomated message] The Eosinophils) system which ge nerated this result tra nsmitted reference range : <=4.0. The reference r belen was not used to int erpret this result as normal/abnormal . [facility] CenterJwrckyxRSJBLQZACU1428-34-70 15:42:00 Test Item Value Reference Range Interpretation Comments Basophils (test code = 0.5 See_Comment [Aut omated message] The Basophils) system which ge nerated this result tra nsmitted reference range : <=1.0. The reference r belen was not used to int erpret this result as normal/abnormal . [facility] CenterAnqfnhbGVKTGWMHBT9085-70-87 15:42:00 Test Item Value Reference Range Interpretation Comments Neutrophils # (test code = Neutrophils 10.6 1.5-8.1 #) [place] 403023-01-10 15:42:00 Test Item Value Reference Range Interpretation Comments Lymphocytes # (test code = Lymphocytes 1.4 1.0-5.5 #) [place] [address]-01-10 15:42:00 Test Item Value Reference Range Interpretation Comments Monocytes # (test code 0.4 See_Comment [Aut omated message] The = Monocytes #) system which generated this result tra nsmitted reference range : <=0.8. The reference r belen was not used to int erpret this result as normal/abnormal . [place] [address]-01-10 15:42:00 Test Item Value Reference Range Interpretation Comments Basophils # (test code 0.1 See_Comment [Aut omated message] The = Basophils #) system which generated this result tra nsmitted reference range : <=0.2. The reference r belen was not used to int erpret this result as normal/abnormal . [facility] HospitalFtrzzjjNOGYSCIQL1555-91-19 15:42:00 Test Item Value Reference Range Interpretation Comments BUN (test code = BUN) 7 7-22 [facility] HospitalDzcbxedJNLMVYUBF0170-48-41 15:42:00 Test Item Value Reference Range Interpretation Comments Creatinine Lvl (test code = Creatinine 0.50 0.50-1.40 Lvl) [facility] HospitalQbcrhmvPXFSDTGUK6283-77-49 15:42:00 Test Item Value Reference Range Interpretation Comments Sodium Lvl (test code = Sodium Lvl) 137 135-145 [facility] HospitalGwbgibgMVRJRYFEX1945-16-49 15:42:00 Test Item Value Reference Range Interpretation Comments Potassium Lvl (test code = Potassium 3.4 3.5-5.1 Lvl) [facility] HospitalUrqohwkRRIDQENBM3777-39-61 15:42:00 Test Item Value Reference Range Interpretation Comments Chloride Lvl (test code = Chloride Lvl) 103 95-109 [facility] HospitalRqxspbxNJXGJBVWO3892-51-71 15:42:00 Test Item Value Reference Range Interpretation Comments CO2 (test code = CO2) 24 24-32 [facility] HospitalPngpdccEQBHDVJSQ6919-85-36 15:42:00 Test Item Value Reference Range Interpretation Comments Calcium Lvl (test code = Calcium Lvl) 9.6 8.5-10.5 [facility] HospitalYjftybfXXRWUTYKN5929-48-15 15:42:00 Test Item Value Reference Range Interpretation Comments AGAP (test code = AGAP) 13.4 10.0-20.0 [facility] HospitalXoifwqrSATGAKKFH0774-75-06 15:42:00 Test Item Value Reference Range Interpretation Comments eGFR (test code = eGFR) 136 [facility] HospitalFrsnqqhDXDKSWSUT1287-78-29 15:42:00 Test Item Value Reference Range Interpretation Comments Total Protein (test code = Total 7.9 6.4-8.4 Protein) [facility] HospitalVwyncoePXAQGEFFR6127-16-35 15:42:00 Test Item Value Reference Range Interpretation Comments Albumin Lvl (test code = Albumin Lvl) 3.8 3.5-5.0 [facility] CmebxjyIZECAJXEL8722-04-26 15:42:00 Test Item Value Reference Range Interpretation Comments ALANINE AMINOTRANSFERASE 48 See_Comment [A utomated message] (test code = ALANINE The sys tem which AMINOTRANSFERASE) generated this result transmitted ref erence range: <=65. Th e reference range was not used to int erpret this result as normal/abnormal . [facility] OdpuetcFTKNLQNVE6545-44-07 15:42:00 Test Item Value Reference Range Interpretation Comments AST (test code = AST) 19 See_Comment [Auto mated message] The system which ge nerated this result transmit jose r reference range : <=37. The reference range was not used to interpr et this result as jerrod l/abnormal. [facility] VjtpgnnOGNBFLFGW3088-93-77 15:42:00 Test Item Value Reference Range Interpretation Comments Alk Phos (test code = Alk Phos) 79 39-136 [facility] UioeyavWVCVLQMDB9912-48-99 15:42:00 Test Item Value Reference Range Interpretation Comments Bili Total (test code = Bili Total) 1.2 0.2-1.3 [facility] JtrwhjvYAHKYEZGO4933-12-11 15:42:00 Test Item Value Reference Range Interpretation Comments Bili Direct (test code 0.4 See_Comment [Aut omated message] The = Bili Direct) system which generated this result tra nsmitted reference range : <=0.3. The reference r belen was not used to int erpret this result as jerrod l/abnormal. [facility] XhucwbpORWTETERA9534-97-99 15:42:00 Test Item Value Reference Range Interpretation Comments Bili Indirect (test 0.8 See_Comment [Automa jose r message] The code = Bili Indirect) system which generated this result tra nsmitted reference range : <=1.0. The reference r belen was not used to int erpret this result as normal/abnormal . [facility] PlwoedzPXGXHVKTA6206-08-96 15:42:00 Test Item Value Reference Range Interpretation Comments Globulin (test code = Globulin) 4.1 2.7-4.2 [facility] XvowlgkCGJBZTNVP1442-75-42 15:42:00 Test Item Value Reference Range Interpretation Comments A/G Ratio (test code = A/G Ratio) 0.9 1 0.7-1.6 [facility] XhhifsbFDYABMVFG3579-23-95 15:42:00 Test Item Value Reference Range Interpretation Comments Lipase Lvl (test code = Lipase Lvl) 57 73-393 [facility]YqdogeyYORQLSSRMN7995-56-60 15:42:00 Test Item Value Reference Range Interpretation Comments WBC X 10x3 (test code = WBC X 10x3) 12.5 3.7-10.4 [facility] CenterHtjgsayBGRADCNGQR0679-08-17 15:42:00 Test Item Value Reference Range Interpretation Comments RBC X 10x6 (test code = RBC X 10x6) 4.56 4.20-5.40 [facility]Wtz[facility]wysOUVGQQPKSI2416-38-11 15:42:00 Test Item Value Reference Range Interpretation Comments Hgb (test code = Hgb) 13.4 12.0-16.0 [facility]PrewlvwANVVHNMCEE1958-89-55 15:42:00 Test Item Value Reference Range Interpretation Comments Hct (test code = Hct) 39.5 36.0-48.0 [facility] CenterTlppqelSPDRBTJAWU4341-61-44 15:42:00 Test Item Value Reference Range Interpretation Comments MCV (test code = MCV) 86.6 80.0-98.0 [facility] CenterUvrovxdVQSAUGUWYF1970-65-99 15:42:00 Test Item Value Reference Range Interpretation Comments MCH (test code = MCH) 29.5 pg 27.0-31.0 [facility] Notes Date/Time Note Provider Source 2022-08-12 EXAM: US PELVIS TRANSABDOMINAL [facility] 14:10:56-00:00 EXAM: US PELVIS TRANSVAGINAL [facility] DATE: 08/12/2022 13:47 INDICATION: - n/v COMPARISON: None. TECHNIQUE: Multiplanar radha giuseppe and color Doppler ultrasound images of the pelvis were obtained transabdominally through a distended urinary bladder followed by transvaginal examination postvoid. FINDINGS: Uterus: Orientation: Anteverted. Size: 10.5 cm span by 8.2 cm AP dimension by 8. 9 cm in width. cm. Masses: None. Cervix: Unremarkable Gestation: Single Mean gestational sac diameter: 5.15 cm correspo nds to 11 weeks 5 days. [place]-rump length (CRL): 5.57 cm corresponds to 12 weeks 2 days. Embryonic heart motion: 170 bpm Yolk sac: Not visualized Subchorionic hemorrhage: None. Right ovary: Size: 2.9 x 1.8 x 1.7 cm cm Cysts: None. Masses: None. Left ovary: Not identified Adnexa: Normal. Free fluid: None. Other findings: None. IMPRESSION: 1. Single viable intrauterin e with embryonic HR of 170 bpm and estimated age by crown-rump length of 12 weeks and 2 days. Reference: Edvin SANCHEZ et al. Diagnosti c Criteria for Nonviable Early in the First Trimester. N Engl J Med 2013; 369: 1443-51 2022-08-12 EXAM: US PELVIS TRANSABDOMINAL [facility] 14:10:56-00:00 EXAM: US PELVIS TRANSVAGINAL [facility] DATE: 08/12/2022 13:47 INDICATION: - n/v COMPARISON: None. TECHNIQUE: Multiplanar radha giuseppe and color Doppler ultrasound images of the pelvis were obtained transabdominally through a distended urinary bladder followed by transvaginal examination postvoid. FINDINGS: Uterus: Orientation: Anteverted. Size: 10.5 cm span by 8.2 cm AP dimension by 8. 9 cm in width. cm. Masses: None. Cervix: Unremarkable Gestation: Single Mean gestational sac diameter: 5.15 cm correspo nds to 11 weeks 5 days. [place]-rump length (CRL): 5.57 cm corresponds to 12 weeks 2 days. Embryonic heart motion: 170 bpm Yolk sac: Not visualized Subchorionic hemorrhage: None. Right ovary: Size: 2.9 x 1.8 x 1.7 cm cm Cysts: None. Masses: None. Left ovary: Not identified Adnexa: Normal. Free fluid: None. Other findings: None. IMPRESSION: 1. Single viable intrauterin e with embryonic HR of 170 bpm and estimated age by crown-rump length of 12 weeks and 2 days. Reference: Edvin SANCHEZ et al. Diagnosti c Criteria for Nonviable Early in the First Trimester. N Engl J Med 2013; 369: 1443-51 2022-08-12 EXAM: US PELVIS TRANSABDOMINAL [facility] 14:10:56-00:00 EXAM: US PELVIS TRANSVAGINAL [facility] DATE: 08/12/2022 13:47 INDICATION: - n/v COMPARISON: None. TECHNIQUE: Multiplanar radha giuseppe and color Doppler ultrasound images of the pelvis were obtained transabdominally through a distended urinary bladder followed by transvaginal examination postvoid. FINDINGS: Uterus: Orientation: Anteverted. Size: 10.5 cm span by 8.2 cm AP dimension by 8. 9 cm in width. cm. Masses: None. Cervix: Unremarkable Gestation: Single Mean gestational sac diameter: 5.15 cm correspo nds to 11 weeks 5 days. [place]-rump length (CRL): 5.57 cm corresponds to 12 weeks 2 days. Embryonic heart motion: 170 bpm Yolk sac: Not visualized Subchorionic hemorrhage: None. Right ovary: Size: 2.9 x 1.8 x 1.7 cm cm Cysts: None. Masses: None. Left ovary: Not identified Adnexa: Normal. Free fluid: None. Other findings: None. IMPRESSION: 1. Single viable intrauterin e with embryonic HR of 170 bpm and estimated age by crown-rump length of 12 weeks and 2 days. Reference: Edvin PM et al. Diagnosti c Criteria for Nonviable Early in the First Trimester. N Engl J Med 2013; 369: 1443-51 2022-08-12 EXAM: US PELVIS TRANSABDOMINAL [facility] 14:10:56-00:00 EXAM: US PELVIS TRANSVAGINAL [facility] DATE: 08/12/2022 13:47 INDICATION: - n/v COMPARISON: None. TECHNIQUE: Multiplanar radha giuseppe and color Doppler ultrasound images of the pelvis were obtained transabdominally through a distended urinary bladder followed by transvaginal examination postvoid. FINDINGS: Uterus: Orientation: Anteverted. Size: 10.5 cm span by 8.2 cm AP dimension by 8. 9 cm in width. cm. Masses: None. Cervix: Unremarkable Gestation: Single Mean gestational sac diameter: 5.15 cm correspo nds to 11 weeks 5 days. [place]-rump length (CRL): 5.57 cm corresponds to 12 weeks 2 days. Embryonic heart motion: 170 bpm Yolk sac: Not visualized Subchorionic hemorrhage: None. Right ovary: Size: 2.9 x 1.8 x 1.7 cm cm Cysts: None. Masses: None. Left ovary: Not identified Adnexa: Normal. Free fluid: None. Other findings: None. IMPRESSION: 1. Single viable intrauterin e with embryonic HR of 170 bpm and estimated age by crown-rump length of 12 weeks and 2 days. Reference: Merlet PM et al. Diagnosti c Criteria for Nonviable Early in the First Trimester. N Engl J Med 2013; 369: 1443-51 2022-08-12 EXAM: US PELVIS TRANSABDOMINAL [facility] 14:10:56-00:00 EXAM: US PELVIS TRANSVAGINAL [facility] DATE: 08/12/2022 13:47 INDICATION: - n/v COMPARISON: None. TECHNIQUE: Multiplanar radha giuseppe and color Doppler ultrasound images of the pelvis were obtained transabdominally through a distended urinary bladder followed by transvaginal examination postvoid. FINDINGS: Uterus: Orientation: Anteverted. Size: 10.5 cm span by 8.2 cm AP dimension by 8. 9 cm in width. cm. Masses: None. Cervix: Unremarkable Gestation: Single Mean gestational sac diameter: 5.15 cm correspo nds to 11 weeks 5 days. [place]-rump length (CRL): 5.57 cm corresponds to 12 weeks 2 days. Embryonic heart motion: 170 bpm Yolk sac: Not visualized Subchorionic hemorrhage: None. Right ovary: Size: 2.9 x 1.8 x 1.7 cm cm Cysts: None. Masses: None. Left ovary: Not identified Adnexa: Normal. Free fluid: None. Other findings: None.
[2023-03-23 07:35] LABS: Absolute Lymphocytes (CBC) 1.2 K/uL (0.7-4.9); Hematocrit 31.3 % (36.0-45.0); Lymphocytes % 15.7 % (15.3-44.8); MCV 79.4 fL (80-100); MPV 8.1 fL (7.6-11.3); Platelets 288 thou/uL (152-406); RBC Red Blood Cell Count 3.94 M/uL (3.86-4.86)
[2023-03-23] MEDS ORDERED: NA CHLORIDE 0.9% 1,000 ML ONE (07:36)
[2023-03-23] MEDS ORDERED: ONDANSETRON 4 MG/2 ML VIAL ONE (07:36)
[2023-03-23] MEDS ORDERED: MORPHINE 4 MG/ML SYR ONE (07:36)
[2023-03-23] MEDS ORDERED: FAMOTIDINE 20 MG/2 ML VIAL IV ONE (07:36)
[2023-03-23 07:43] LABS: Specific Gravity 1.018 (1.005-1.030)
[2023-03-23 07:50] LABS: Albumin 3.2 g/dL (3.4-5.0); Bilirubin Total 0.6 mg/dL (0.2-1.0); Potassium 4.2 mEq/L (3.5-5.1); Protein, Total 6.5 g/dL (6.4-8.2)
[2023-03-23 07:52] LABS: Specific Gravity 1.018 (1.005-1.030); Urine Bacteria None Seen /HPF (<20); Urine Bilirubin NEGATIVE (Negative); Urine Blood 2+ (Negative); Urine Clarity Extremely Turbid (Clear); Urine Color Light-Yellow (Yellow); Urine Glucose NEGATIVE (Negative); Urine Mucus Slight /HPF (None Seen); Urine Protein NEGATIVE (Negative); Urine Urobilinogen Normal (Normal)
--- NOTE | 2023-03-23 08:27 | RAD REPORT ---
EXAM DESCRIPTION: US - Abdomen Exam Limited - 03/23/2023 8:19 am CLINICAL HISTORY: ABD PAIN COMPARISON: No comparisons FINDINGS: The gallbladder demonstrates shadowing gallstones. No pericholecystic fluid or gallbladder wall thickening. The common bile duct is upper limits of normal measuring 5 mm. The liver demonstrates no findings of intrahepatic biliary dilatation. IMPRESSION: Cholelithiasis without sonographic evidence of acute cholecystitis. Common bile duct at upper limits of normal.
[2023-03-23] MEDS ORDERED: PIPERACIL/TAZO 3.375 GM VIAL IV ONE (08:55)
[2023-03-23] MEDS ORDERED: NA CHLORIDE 0.9% 100 ML ONE (08:55)
--- NOTE | 2023-03-23 09:24 | ER ---
Nurse's Notes [facility] Name: Annette Gotti Age: 22 yrs Sex: Female : 2000 Arrival Date: 03/23/2023 Time: 06:18 Bed 20 Private MD: Diagnosis: Epigastric abdominal tenderness;Cholecystitis, unspecified Presentation: 03/23 06:57 Chief complaint: Patient states: upper abdominal pain of 7 with vomiting x 3 pf1 episodes,onset 1 hour ago. Patient stated gave 3 weeks ago. 06:57 Coronavirus screen: Vaccine status: Patient reports receiving the 2nd dose of the covid pf1 vaccine. [facility] Client denies travel out of the [place] in the last 14 days. Client presents with at least one sign or symptom that may indicate coronavirus-19. Ebola Screen: Patient negative for fever greater than or equal to 101.5 degrees Fahrenheit, and additional compatible Ebola Virus Disease symptoms. Initial Sepsis Screen: Does the patient meet any 2 criteria? No. Patient's initial sepsis screen is negative. Does the patient have a suspected source of infection? No. Patient's initial sepsis screen is negative. Risk Assessment: Do you want to hurt yourself or someone else? Patient reports no desire to harm self or others. 06:57 Method Of Arrival: Ambulatory pf1 06:57 Acuity: DONITA 3 pf1 09:00 Onset of symptoms was March 23, 2023. 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 - Social history:: Smoking status: Patient denies any tobacco usage or history of. Patient/guardian denies using alcohol, street drugs. Screenin:00 [facility] ED Fall Risk Assessment (Adult) Score/Fall Risk Level 0 - 2 = Low Risk. Abuse ll1 screen: Denies threats or abuse. Denies injuries from another. Nutritional screening: No deficits noted. Tuberculosis screening: No symptoms or risk factors identified. Assessment: 09:00 General: Appears in no apparent distress. uncomfortable, Behavior is calm, cooperative, ll1 appropriate for age. Pain: Complains of pain in right upper quadrant and epigastric area. Neuro: Level of Consciousness is awake, alert, obeys commands, Oriented to person, place, time, situation. Cardiovascular: Capillary refill < 3 seconds Patient's skin is warm and dry. Respiratory: Airway is patent Respiratory effort is even, unlabored, Respiratory pattern is regular, symmetrical. GI: Abdomen is round non-distended. GI: Reports upper abdominal pain, nausea, vomiting. Derm: Skin is healthy with good turgor, Skin is pink, warm \T\ dry. Musculoskeletal: Circulation, motion, and sensation intact. Range of motion: intact in all extremities. 10:00 Reassessment: Patient appears in no apparent distress at this time. Patient and/or ll1 family updated on plan of care and expected duration. Pain level reassessed. Patient is alert, oriented x 3, equal unlabored respirations, skin warm/dry/pink. Vital Signs: 06:57 BP 118 / 72; Pulse 66; Resp 18; Temp 97.2; Pulse Ox 100% on R/A; Weight 71 kg; Height 5 pf1 ft. 3 in. ; Pain 7/10; 09:00 BP 120 / 66; Pulse 71; Resp 18; Pulse Ox 97% on R/A; ll1 10:00 BP 117 / 68; Pulse 59; Resp 18; Pulse Ox 99% on R/A; ll1 06:57 Body Mass Index 27.73 (71.00 kg, 160.02 cm) pf1 06:57 Pain Scale: Adult pf1 ED Course: 06:53 Patient arrived in ED. es 07:06 Nathanael Akers MD is Attending Physician. raoul 07:08 Teto Krueger RN is Primary Nurse. ll1 07:08 Triage completed. pf1 07:08 Arm band placed on Patient placed in an exam room, on a stretcher. ll1 08:21 US Abdomen Limited In Process Unspecified. EDMS 09:00 Patient has correct armband on for positive identification. Bed in low position. Call ll1 light in reach. Side rails up X2. Adult w/ patient. Provided Education on: Use of call yanes. Pulse ox on. NIBP on. 09:03 Inserted saline lock: 22 gauge in right antecubital area, using aseptic technique. ll1 Blood collected. 09:16 Robbie Lindsey MD is Hospitalizing Provider. [facility] 10:00 No provider procedures requiring assistance completed. Patient admitted, IV remains in ll1 place. Administered Medications: 07:28 Drug: NS 0.9% IV 1000 ml Route: IV; Rate: 1 bolus; Site: right antecubital; ll1 09:03 Follow up: IV Status: Completed infusion; IV Intake: 1000ml ll1 07:29 Drug: Famotidine IVP 20 mg Route: IVP; Site: right antecubital; ll1 09:03 Follow up: Response: No adverse reaction ll1 07:31 Drug: Ondansetron IVP 4 mg Route: IVP; Site: right antecubital; ll1 09:03 Follow up: Response: No adverse reaction ll1 07:33 Drug: morphine IVP or IV 4 mg Route: IVP; Infused Over: 4 mins; Site: right antecubital;ll1 09:04 Follow up: Response: No adverse reaction 1 09:03 Drug: Piperacillin-Tazobactam IVPB 3.375 grams Route: IVPB; Infused Over: 60 mins; ll1 Site: right antecubital; 10:05 Follow up: Response: No adverse reaction; IV Status: Completed infusion; IV Intake: ll1 100ml Medication: 10:00 VIS not applicable for this client. ll1 Intake: 09:03 IV: 1000ml; Total: 1000ml. ll1 10:05 IV: 100ml; Total: 1100ml. 1 Outcome: 09:23 Decision to Hospitalize by Provider. [facility] 10:00 Admitted to ER Hold. Please see [facility] for further documentation. 1 10:00 Condition: stable 10:00 Instructed on the need for admit. 18:23 Patient left the ED. 3 Signatures: Dispatcher [employer] Nathanael Chacon MD MD cha Salyer, Teto Bautista RN RN 1 Zoya Hernandez RN RN 3 Mary Jane Duron RN RN pf1
--- NOTE | 2023-03-23 09:24 | EDPHYS ---
Physician Documentation [facility] Name: Annette Gotti Age: 22 yrs Sex: Female : 2000 Arrival Date: 03/23/2023 Time: 06:18 Bed 20 Private MD: ED Physician Nathanael Akers HPI: 03/23 08:57 This 22 yrs old Female presents to ER via Ambulatory with complaints of raoul Vomiting. 08:57 The patient presents to the emergency department with nausea, vomiting, that is raoul intermittent, abdominal pain, of the epigastric area and right upper quadrant. Onset: The symptoms/episode began/occurred 1 day(s) ago. Possible causes: unknown. The symptoms are aggravated by food , The symptoms are alleviated by nothing. Associated signs and symptoms: Pertinent positives: abdominal pain, nausea, vomiting. Severity of symptoms: At their worst the symptoms were moderate in the emergency department the symptoms have improved mildly. The patient has not experienced similar symptoms in the past. 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 - Social history:: Smoking status: Patient denies any tobacco usage or history of. Patient/guardian denies using alcohol, street drugs. ROS: 08:59 Constitutional: Negative for fever, chills, and weight loss, Eyes: Negative for injury, raoul pain, redness, and discharge, ENT: Negative for injury, pain, and discharge, Neck: Negative for injury, pain, and swelling, Cardiovascular: Negative for chest pain, palpitations, and edema, Respiratory: Negative for shortness of breath, cough, wheezing, and pleuritic chest pain, Back: Negative for injury and pain, : Negative for injury, bleeding, discharge, and swelling, MS/Extremity: Negative for injury and deformity, Skin: Negative for injury, rash, and discoloration, Neuro: Negative for headache, weakness, numbness, tingling, and seizure, Psych: Negative for depression, anxiety, suicide ideation, homicidal ideation, and hallucinations, Allergy/Immunology: Negative for hives, rash, and allergies, Endocrine: Negative for neck swelling, polydipsia, polyuria, polyphagia, and marked weight changes, Hematologic/Lymphatic: Negative for swollen nodes, abnormal bleeding, and unusual bruising. 08:59 Abdomen/GI: Positive for abdominal pain, of the epigastric area and right upper quadrant. Exam: 08:59 Constitutional: This is a well developed, well nourished patient who is awake, alert, raoul and in no acute distress. Head/Face: Normocephalic, atraumatic. Eyes: Pupils equal round and reactive to light, extra-ocular motions intact. Lids and lashes normal. Conjunctiva and sclera are non-icteric and not injected. Cornea within normal limits. Periorbital areas with no swelling, redness, or edema. ENT: Nares patent. No nasal discharge, no septal abnormalities noted. Tympanic membranes are normal and external auditory canals are clear. Oropharynx with no redness, swelling, or masses, exudates, or evidence of obstruction, uvula midline. Mucous membranes moist. Neck: Trachea midline, no thyromegaly or masses palpated, and no cervical lymphadenopathy. Supple, full range of motion without nuchal rigidity, or vertebral point tenderness. No Meningismus. Chest/axilla: Normal chest wall appearance and motion. Nontender with no deformity. No lesions are appreciated. Cardiovascular: Regular rate and rhythm with a normal S1 and S2. No gallops, murmurs, or rubs. Normal PMI, no JVD. No pulse deficits. Respiratory: Lungs have equal breath sounds bilaterally, clear to auscultation and percussion. No rales, rhonchi or wheezes noted. No increased work of breathing, no retractions or nasal flaring. Back: No spinal tenderness. No costovertebral tenderness. Full range of motion. Female : Normal external genitalia. Skin: Warm, dry with normal turgor. Normal color with no rashes, no lesions, and no evidence of cellulitis. MS/ Extremity: Pulses equal, no cyanosis. Neurovascular intact. Full, normal range of motion. Neuro: Awake and alert, GCS 15, oriented to person, place, time, and situation. Cranial nerves II-XII grossly intact. Motor strength 5/5 in all extremities. Sensory grossly intact. Cerebellar exam normal. Normal gait. Psych: Awake, alert, with orientation to person, place and time. Behavior, mood, and affect are within normal limits. 08:59 Abdomen/GI: Inspection: abdomen appears normal, Bowel sounds: normal, Palpation: moderate abdominal tenderness, in the epigastric area and right upper quadrant, Liver: no appreciated palpable abnormalities, Hernia: not appreciated. Vital Signs: 06:57 BP 118 / 72; Pulse 66; Resp 18; Temp 97.2; Pulse Ox 100% on R/A; Weight 71 kg; Height 5 pf1 ft. 3 in. ; Pain 7/10; 09:00 BP 120 / 66; Pulse 71; Resp 18; Pulse Ox 97% on R/A; ll1 10:00 BP 117 / 68; Pulse 59; Resp 18; Pulse Ox 99% on R/A; ll1 06:57 Body Mass Index 27.73 (71.00 kg, 160.02 cm) pf1 06:57 Pain Scale: Adult pf1 MDM: 07:07 Patient medically screened. [facility] 09:07 Differential diagnosis: Nonspecific abd pain, gastritis, cholecystitis, pancreatitis, raoul viral gastroenteritis, gastroenteritis. Data reviewed: vital signs, nurses notes, lab test result(s), radiologic studies, ultrasound. Consideration of Admission/Observation Patient was admitted/placed on observation. Management of patient was discussed with the following: Talent Acquisition Administrator: DR SORTO. Independent interpretation of the following test(s) in the Emergency Department Radiology Department Ultrasound: My interpretation is USG GB. Test considered but Not performed: CT: NO CT ABD PELVIS. Historians other than the Patient: Family Member: MOM. Care significantly affected by the following chronic conditions: SP 3 WEEKS AGO , NO COMP. Counseling: I had a detailed discussion with the patient and/or guardian regarding the historical points, exam findings, and any diagnostic results supporting the discharge/admit diagnosis, lab results, radiology results, the need for further work-up and treatment in the hospital. 03/23 07:13 Order name: CBC with Diff; Complete Time: 08: [facility] 03/23 07:13 Order name: CMP; Complete Time: : [facility] 03/23 07:13 Order name: Lipase; Complete Time: : [facility] 03/23 07:13 Order name: Test, Urine; Complete Time: :29 [facility] 03/23 07:13 Order name: Urinalysis w/ reflexes; Complete Time: 08:29 [facility] 03/23 07:13 Order name: US Abdomen Limited; Complete Time: 08:29 [facility] 03/23 08:40 Order name: Cholangiogram [facility] 03/23 07:13 Order name: IV Saline Lock; Complete Time: 07:22 [facility] 03/23 07:13 Order name: Labs collected and sent; Complete Time: 07:22 raoul Administered Medications: 07:28 Drug: NS 0.9% IV 1000 ml Route: IV; Rate: 1 bolus; Site: right antecubital; ll1 09:03 Follow up: IV Status: Completed infusion; IV Intake: 1000ml ll1 07:29 Drug: Famotidine IVP 20 mg Route: IVP; Site: right antecubital; ll1 09:03 Follow up: Response: No adverse reaction ll1 07:31 Drug: Ondansetron IVP 4 mg Route: IVP; Site: right antecubital; ll1 09:03 Follow up: Response: No adverse reaction ll1 07:33 Drug: morphine IVP or IV 4 mg Route: IVP; Infused Over: 4 mins; Site: right antecubital;ll1 09:04 Follow up: Response: No adverse reaction ll1 09:03 Drug: Piperacillin-Tazobactam IVPB 3.375 grams Route: IVPB; Infused Over: 60 mins; ll1 Site: right antecubital; 10:05 Follow up: Response: No adverse reaction; IV Status: Completed infusion; IV Intake: ll1 100ml Disposition Summary: 03/23/23 09:23 Hospitalization Ordered Hospitalization Status: Observation raoul Provider: Robbie Sorto cha Condition: Fair raoul Problem: new raoul Symptoms: have improved raoul Bed/Room Type: Standard raoul Location: [facility] ER HOLD(03/23/23 11:30) Room Assignment: ERHOLD-(03/23/23 11:30) zm Diagnosis - Epigastric abdominal tenderness raoul - Cholecystitis, unspecified raoul Forms: - Medication Reconciliation Form raoul - SBAR form raoul - Leadership Thank You Letter raoul Signatures: Dispatcher [employer] Nathanael Chacon MD MD cha Lewis, Lynsay, RN RN ll1 Kenya Richardson Pamala, RN RN pf1 Corrections: (The following items were deleted from the chart) 11:30 09:23 Telemetry/MedSurg (observation) raoul hauser raoul [facility]user
[2023-03-23] MEDS ORDERED: ONDANSETRON 4 MG/2 ML VIAL IV PRN (10:08)
[2023-03-23] MEDS ORDERED: MORPHINE 4 MG/ML SYR IV PRN (10:08)
[2023-03-23] MEDS ORDERED: D5 0.45 NS 1,000 ML IV SCH (10:08)
[2023-03-23] MEDS ORDERED: ACETAMINOPHEN 325 MG TABLET PO PRN (10:08)
[2023-03-23 10:45] VITALS: BMI 27.7
[2023-03-23] MEDS ORDERED: D5 0.45 NS 1,000 ML IV ONE (11:08)
[2023-03-23 16:16] VITALS: BP 116/72; TEMP 98.5
[2023-03-23] MEDS ORDERED: PIPER TAZO 3.375 GM in NA CHLORIDE 0.9% 100 ML IV SCH (17:00)
[2023-03-23 18:35] VITALS: O2SAT 99
[2023-03-23] MEDS ORDERED: FAMOTIDINE 20 MG/2 ML VIAL IV SCH (21:00)
--- NOTE | 2023-03-24 03:15 | HP ---
Date of Admission: 03/23/2023 Brief History Of Present Illness: The patient is a 22-year-old woman who had delivered her baby approximately 3 weeks ago, who has significant weight loss just prior to her delivery as well as after delivery of her baby. She developed epigastric with right upper quadrant abdominal pain radia ting through to the back. She has never had similar episodes before in the past. It is associated w ith nausea, vomiting. She has had significant hyperemesis gravidarum in the past, but otherwise no s imilar episodes. This did not feel like hyperemesis gravidarum by her description. She came to the emergency room with the above-stated complaints. She was given pain medication and had some signific ant improvement of her symptoms. Past Medical History: Significant for hyperemesis gravidarum. Past Surgical History: Negative. Allergies: NO KNOWN DRUG ALLERGIES. Medications: None. Social History: She denies smoking, alcohol, or recreational drug use. She is not breast-feeding. Review of Systems: Ten-point review of systems other than HPI, denies. Physical Examination: Vital Signs: At the time of my examination, her blood pressure 118/72, pulse 66, respiratory rate 18 , temperature 97.2, pulse ox 100% on room air. General: She is awake, alert, and oriented. Psychiatric: She is appropriate and conversive. HEENT: She is normocephalic. Sclerae icteric. Mucous membranes are moist. Oropharynx clear. Neck: Supple without JVD. Chest: Expansion and excursion. Cardiovascular: Regular rate and rhythm. Pulmonary: Clear to auscultation bilaterally. Abdomen: Soft with mild right upper quadrant tenderness to deep palpation only. No rebound. No gua rding. No focal peritonitis. Melchor sign is negative. Extremities: No clubbing, cyanosis, edema. Skin: Warm and dry. Laboratory Data: Revealed a white blood cell count of 7.4, hemoglobin is 9.9, hematocrit of 31.3, pl atelet count is 288. Chemistry showed a sodium of 141, potassium 4.2, chloride 110, carbon dioxide 2 9, BUN 8, creatinine 0.67, glucose 103, total bilirubin 0.6, AST 50, ALT 47, alkaline phosphatase 130 . Her lipase is 35. Her urinalysis showed negative for , turbidity and clarity, 2+ blood, white blood cell count was 10. She has no urinary symptoms to prior description. She had an abdomin al ultrasound which showed cholelithiasis without sonographic evidence of cholecystitis. Common bile duct, upper limits of normal. There is no pericholecystic fluid or gallbladder wall thickening. Co mmon bile duct is 5 mm. Assessment And Plan: This is a 22-year-old female, who presents with signs and symptoms of acute alonso culous biliary colic/cholecystitis. 1.IV fluid hydration. 2.Antibiotic coverage. 3.I have explained the risks, benefits, and alternatives of laparoscopic possible open cholecystecto my including, but not limited to bleeding, infection, damage around tissue, under bile ducts or intes tines, need further operation procedures. The patient states she would like to call her family and d werner logistics as she has no one to take care of her baby and would like to consider as an outpatie nt treatment given her and she states she does not have anyone to help take care of him at th is time. May need to schedule this as an outpatient as she could have significant improvement of sym ptoms. As such, I have recommended dietary challenge. At this point, if she has continued improveme nt of her symptoms, I have recommended close followup in my clinic to schedule a laparoscopic cholecy stectomy at her earliest convenience. However, if she has any symptoms of worsening above problem, s he needs to come back into the emergency room emergently and we will plan for surgical cholecystectom y on an emergent basis should that be necessary. However, if the patient does not tolerate diet or h as any other nonreassuring findings, I recommended inpatient laparoscopic cholecystectomy as described above. The patient agreed to proceed . SANDER/PETE Voice ID: [id number]
== END 2023-03-23 16:15 | disposition home or self-care (01) ==
LOC: ER 06:18 → ERHOLD 09:29
PROVIDERS: ADMIT Surgery; ATTEND Surgery
DX: O99.63 Diseases of the digestive system complicating the puerperium (principal); K80.10 Calculus of gallbladder with chronic cholecystitis without obstruction; R63.4 Abnormal weight loss; R11.2 Nausea with vomiting, unspecified
CPT/HCPCS: 85025; 81001; 36415; 81025; 83690; 80053; 76705; J2543; J2405; J7799; J7030; 96361; 96365; 96375; 99285; G0378

== ENCOUNTER 2023-03-29 20:16 | Emergency (ER) | payer OTHER ==
--- OUTSIDE RECORDS SUMMARY | 2023-03-29 20:24 | XMS REPORT | Continuity of Care Document ---
:2000 Author Organization [facility] t Address [address] [facility] [address] [place] [address] Care Team Providers Name Role Phone Asked, No Pcp Primary Care Physician Unavailable lc.[email or web address] Attending Clinician Unavailable lc.[email or web address] Attending Clinician Unavailable lc.[email or web address] Attending Clinician Unavailable Leanna Brown MA Attending Clinician Unavailable Jayce COOMBS, Valentina Brandon Attending Clinician [phone] Ascencion COOMBS, Barbara Gutner Attending Clinician Krunal Rincon MD Attending Clinician [phone] Provider, Unknown Attending Clinician Unavailable Jefe Carpenter MD Attending Clinician [phone] Dolly Sol MA Attending Clinician Unavailable Leena Bey MD Attending Clinician Unavailable Kathe Mathew MD Attending Clinician [phone] Zoya Barahona DO Attending Clinician Chely Berrios MD Attending Clinician [phone] Juan Daniel Bull Attending Clinician JUAN DANIEL BULL Attending Clinician Unavailable VALENTINA EDUARDO Admitting Clinician Unavailable Pauline COOMBS, Jefe Klein Unavailable [phone] Zoya Barahona DO Unavailable Ryan COOMBS, Kadie Obrien Unavailable [phone] Agustina COOMBS, Chely Unavailable [phone] Sotero COOMBS, Leena Unavailable Unavailable Quincy COOMBS, Kathe Unavailable [phone] Payers Payer Name Policy Type Policy Number Effective Date Expiration Date Jordon mccoy [facility] P [id number] 2022 00:00:00 [facility] ST[facility] P [id number] 2022 00:00:00 Problems Condition Condition Condition Status [...] Insufficie Condition Active 2022-10-03 Chapo Berrios nt 2 16:45:[address] OB 00:00: care, 00 second trimester 12 WEEKS 12 WEEKS Diagnosis Active 2022-09-29 Memoria /V /V 1-10 08:06:00 l OMITING OMITING 00:00: [place] Active 00 08/12/2022 [facility] Excessive Excessive Problem Active 2022-08-15 Memoria vomiting vomiting 05:34:32 l in in [place] (disorder) (disorder) Active Problem 08/15/2022 [facility] 39 Weeks Condition Active 2023-02-26 2023-02-19 Chapo Carpenter Gestation 02-19 00:00:00 13:23:[address] OB of [...] in 00 (disorder) (disorder) 08/12/2022 Diagnosis 08/15/2022 [facility] Mild Mild Diagnosis 2022-08-15 2022-08-15 Memoria hyperemesi hyperemesi 1-10 05:34:32 05:34:32 l s s 22:49: Jermaine gravidarum gravidarum 00 (disorder) (disorder) 08/12/2022 Diagnosis 08/15/2022 [facility] Allergies, Adverse Reactions, Alerts This patient has no known allergies or adverse reactions. Social History Social Habit Start Date Stop Date Quantity Comments Source Gender identity [facility] Sexual orientation [facility] Alcohol intake 2023-02-26 2023-02-26 Ex-drinker [facility] 00:00:00 00:00:00 (finding) Hospital History of Social [...] of children 2023-02-19 2023-02-19 [facility] 12:58:59 12:58:59 [facility] passive cigarette 2023-02-19 2023-02-19 LA32-8 [facility] smoke exposure 12:58:59 12:58:59 [facility] social history 2023-01-23 2023-01-23 reviewed today [facility] reviewed E&M 14:10:25 14:10:25 [facility] drug use 2023-01-23 2023-01-23 Never [facility] 14:10:25 14:10:25 [facility] alcohol use 2023-01-23 2023-01-23 Prior to [facility] 14:10:25 14:10:25 [facility] time of call 2022-10-30 2022-10-30 10/30/2022 1:40 PM [facility] 13:39:58 13:39:58 [facility] smoking/tobacco 2022-09-24 2022-09-24 Complete [facility] cessation, patient 10:21:05 10:21:05 Commun ity education and Health counseling cat exposure during 2022-09-24 2022-09-24 no [facility] 10:21:05 10:21:05 [facility] Have you traveled to 2022-09-24 2022-09-24 no [facility] any zika virus 10:21:05 10:21:05 Community infected areas? Health History of tobacco 2020-09-22 Cigarette Smoker [facility] use 00:00:00 Hospital Sex Assigned At [birth year] [facility] 00:00:00 00:00:00 Hospital Smoking Status Start Date Stop Date Source Ex-smoker 2023-02-24 00:00:00 2023-02-24 00:00:00 [facility] Tobacco smoking status [facility] Medications Ordered Filled Start Stop Current Ordering Indication Dosage Frequency Signature Comments Components Source Medication Medication Date Date Medication? Clinician (SIG) Name Name calcium Yes QD Chew 2 [facility] carbonate 7-[address] (TUMS) 200 17:01: (1,000 mg Ho spita mg calcium 00 of Calcium l (500 mg) Carbonate chewable total) tablet daily. calcium Yes QD Chew 2 [facility] carbonate 7-[address] (TUMS) 200 17:01: (1,000 mg Ho spita mg calcium 00 of Calcium l (500 mg) Carbonate chewable total) tablet daily. Yes 1{tbl} QD Take 1 Metho di vit,calc76- 7-[address] iron-folic 17:02: mouth Hospit a 29 mg iron- 26 daily. l 1 mg tablet per tablet ondansetron Yes 4mg Q8H Take 1 Meth khadra ODT 7-28 tablet (4 st (ZOFRAN-ODT 17:02: mg total) H ospita ) 4 MG 26 by mouth l disintegrat every 8 ing tablet (eight) hours as needed for nausea or vomiting. Yes 1{tbl} QD Take 1 Metho di vit,calc76- 7-[address] iron-folic 17:02: mouth Hospit a 29 mg iron- 26 daily. l 1 mg tablet per tablet ondansetron Yes 4mg Q8H Take 1 Meth khadra ODT 7-28 tablet (4 st (ZOFRAN-ODT 17:02: mg total) H ospita ) 4 MG 26 by mouth l disintegrat every 8 ing tablet (eight) hours as needed for nausea or vomiting. ferrous 2023- Yes 325mg QD Take 1 Method i sulfate 325 7-27 02-[address] (65 FE) MG 00:00: 04:59 (325 mg Hos edgar EC tablet 00 :00 total) by l mouth daily for 360 days. ferrous 2023- Yes 325mg QD Take 1 Method [facility] sulfate 325 7-28 -[address] (65 FE) MG 00:00: 04:59 (325 mg Hos edgar EC tablet 00 :00 total) by l mouth daily for 360 days. docusate 2022- Yes 100mg Q.5D Take 1 Metho di sodium 7-28 11-[address] (COLACE) 00:00: 05:59 (100 mg Hospi ta 100 MG 00 :00 total) by l capsule mouth 2 (two) times a day as needed for constipati on for up to 120 days. docusate 2022- Yes 100mg Q.5D Take 1 Metho di sodium 02-[address] (COLACE) 00:00: 05:59 (100 mg Hospi ta 100 MG 00 :00 total) by l capsule mouth 2 (two) times a day as needed for constipati on for up to 120 days. ibuprofen 2022- Yes 600mg Q6H Take 1 Meth khadra (ADVIL) 600 02-27- tablet st MG tablet 00:00: 04:59 (600 mg Hosp parris 00 :00 total) by l mouth every 6 (six) hours as needed (Cramping, Laceration or Incision Pain) for up to 30 days. ibuprofen 2022- Yes 600mg Q6H Take 1 Meth khadra (ADVIL) 600 02-27- tablet st MG tablet 00:00: 04:59 (600 mg Hosp parris 00 :00 total) by l mouth every 6 (six) hours as needed (Cramping, Laceration or Incision Pain) for up to 30 days. metroNIDAZO 2022- No 500mg Q.5D Take 1 Me thodi LE (FlagyL) 02-24 08-[address] 500 MG 00:00: 04:59 (500 mg Hospita tablet 00 :00 total) by l mouth 2 (two) times a day for 7 days. metroNIDAZO 0 2022- No 500mg Q.5D Take 1 Me thodi LE (FlagyL) 02-24 08-[address] 500 MG 00:00: 04:59 (500 mg Hospita tablet 00 :00 total) by l mouth 2 (two) times a day for 7 days. INTEGRA F 2022-0 Yes Jefe A 1 Take 1 [facility] (FE 02-23 Pauline MD capsule by Adul t FUM-FEPOLY- 00:00: mouth once Medicin FA-VIT 00 a day e C-VIT B3) 125-1 MG CAPS (FERROUS 0 2023- No Jefe A 1 Take 1 [facility] [...] 2-22 Agustina COOMBS capsule by Jeff lt ( 00:00: mouth once M edicin POLY-METHFO 00 [...] # 28 cap, 0 Refill(s) Diclegis 10 2022-0 Yes 2 tab, PO, Memoria mg-10 mg 1-10 Bedtime, # l oral 22:45: 30 tab, 0 Jermaine delayed 00 Refill(s) release tablet Diclegis 10 2022-0 Yes 2 tab, PO, Memoria mg-10 mg 1-10 Bedtime, # l oral 22:45: 30 tab, 0 [place] delayed 00 Refill(s) release tablet Diclegis 10 0 Yes 2 tab, PO, Memoria mg-10 mg 1-10 Bedtime, # l oral 22:45: 30 tab, 0 [place] delayed 00 Refill(s) release tablet Diclegis 10 2022-0 Yes 2 tab, PO, Memoria mg-10 mg 1-10 Bedtime, # l oral 22:45: 30 tab, 0 [place] delayed 00 Refill(s) release tablet Diclegis 10 0 Yes 2 tab, PO, Memoria mg-10 mg 1-10 Bedtime, # l oral 22:45: 30 tab, 0 Jremaine delayed 00 Refill(s) release tablet Diclegis 10 0 Yes 2 tab, PO, Memoria mg-10 mg 1-10 Bedtime, # l oral 22:45: 30 tab, 0 Jermaine delayed 00 Refill(s) release tablet Vital Signs Vital Name Observation Time Observation Value Comments Source Systolic blood 2023-02-27 16:57:14 101 mm[Hg] [facility] pressure Diastolic blood 2023-02-27 16:57:14 66 mm[Hg] [facility] pressure Heart rate 2023-02-27 16:57:14 72 /min [facility] Body temperature 2023-02-27 16:57:14 36.72 Noemy [facility] Oxygen saturation in 2023-02-27 16:57:14 99 /min Arterial blood by Pulse oximetry Respiratory rate 2023-02-27 09:05:02 18 /min [facility] Body height 2023-02-26 07:12:00 160 cm [facility] Body weight 2023-02-26 07:12:00 80.74 kg [facility] BMI 2023-02-26 07:12:00 31.53 kg/m2 [facility] Body Mass Index 2023-02-19 12:58:59 31.17 kg/m2 [facility] weight E&M 2023-02-19 12:58:59 169.8 [lb_av] [facility] Diastolic blood 2023-02-19 12:58:59 71 mm[Hg] [facility] Systolic blood 2023-02-19 12:58:59 114 mm[Hg] [facility] pulse rate 2023-02-19 12:58:59 86 /min [facility] temperature site 2023-02-19 12:58:59 oral [facility] height E&M 2023-02-19 12:58:59 62 [in_i] [facility] Body Mass Index 2023-02-12 12:57:25 31.39 kg/m2 [facility] Diastolic blood 2023-02-12 12:57:25 80 mm[Hg] [facility] pressure Health Systolic blood 2023-02-12 12:57:25 130 mm[Hg] [facility] pulse rate 2023-02-12 12:57:25 92 /min [facility] Health respiratory rate E&M 2023-02-12 12:57:25 16 /min [facility] temperature [facility] 2023-02-12 12:57:25 oral [facility] Health temperature E&M 2023-02-12 12:57:25 97.7 [degF] [facility] Health weight E&M 2023-02-12 12:57:25 171 [lb_av] [facility] Health height E&M 2023-02-12 12:57:25 62 [in_i] [facility] Health Body Mass Index 2023-01-23 14:10:25 30.36 kg/m2 [facility] Diastolic blood 2023-01-23 14:10:25 77 mm[Hg] [facility] Systolic blood 2023-01-23 14:10:25 117 mm[Hg] [facility] pulse rate 2023-01-23 14:10:25 94 /min [facility] respiratory rate E&M 2023-01-23 14:10:25 16 /min [facility] temperature E&M 2023-01-23 14:10:25 97.9 [degF] [facility] Health weight E&M 2023-01-23 14:10:25 165.4 [lb_av] [facility] temperature site 2023-01-23 14:10:25 oral [facility] height E&M 2023-01-23 14:10:25 62 [in_i] [facility] Body Mass Index 2022-11-18 13:41:34 27.17 kg/m2 [facility] Diastolic blood 2022-11-18 13:41:34 69 mm[Hg] [facility] pressure Health Systolic blood 2022-11-18 13:41:34 106 mm[Hg] [facility] respiratory rate E&M 2022-11-18 13:41:34 17 /min [facility] temperature site 2022-11-18 13:41:34 oral [facility] pulse rate 2022-11-18 13:41:34 74 /min [facility] temperature E&M 2022-11-18 13:41:34 98.2 [degF] [facility] Health weight E&M 2022-11-18 13:41:34 148 [lb_av] [facility] height E&M 2022-11-18 13:41:34 62 [in_i] [facility] Body Mass Index 2022-10-28 13:05:44 26.43 kg/m2 [facility] Diastolic blood 2022-10-28 13:05:44 71 mm[Hg] [facility] pressure Health Systolic blood 2022-10-28 13:05:44 108 mm[Hg] [facility] pulse rate 2022-10-28 13:05:44 89 /min [facility] respiratory rate E&M 2022-10-28 13:05:44 19 /min [facility] temperature E&M 2022-10-28 13:05:44 98.4 [degF] [facility] Health weight E&M 2022-10-28 13:05:44 144.0 [lb_av] [facility] temperature site 2022-10-28 13:05:44 oral [facility] height E&M 2022-10-28 13:05:44 62 [in_i] [facility] Body Mass Index 2022-10-13 13:42:24 26.29 kg/m2 [facility] weight E&M 2022-10-13 13:42:24 143.2 [lb_av] [facility] height E&M 2022-10-13 13:42:24 62 [in_i] [facility] 2022-10-13 13:42:24 71 /min [facility] 2022-10-13 13:42:24 oral [facility] temperature E&M 2022-10-13 13:42:24 98.3 [degF] [facility] Di[facility] blood 2022-10-13 13:42:24 69 mm[Hg] [facility] Systolic blood 2022-10-13 13:42:24 122 mm[Hg] [facility] weight E&M 2022-09-24 11:28:00 136 LBS [facility] Body Mass Index 2022-09-24 10:21:05 25.04 kg/m2 [facility] Diastolic blood 2022-09-24 10:21:05 77 mm[Hg] [facility] Systolic blood 2022-09-24 10:21:05 119 mm[Hg] [facility] 2022-09-24 10:21:05 78 /min [facility] respiratory rate E&M 2022-09-24 10:21:05 16 /min [facility] Health temperature E&M 2022-09-24 10:21:05 98.4 [degF] [facility] weight E&M 2022-09-24 10:21:05 136.4 [lb_av] [facility] Health height E&M 2022-09-24 10:21:05 62 [in_i] [facility] 2022-09-24 10:21:05 oral [facility] Health Temperature Oral (F) 2022-08-12 23:51:00 98.5 F [facility] Heart Rate 2022-08-12 23:51:00 [facility] Systolic (mm Hg) 2022-08-12 23:51:00 Tru rial Jermaine Diastolic (mm Hg) 2022-08-12 23:51:00 Mem orial [place] Height 2022-08-12 21:10:00 5 [ft_i] [facility] BMI Calculated 2022-08-12 21:10:00 Memori al [place] Weight 2022-08-12 21:10:00 [facility] Procedure Date / Time Performing Clinician Source Performed CBC WITH PLATELET AND 2023-02-27 10:06:00 [facility] DIFFERENTIAL Kaisee TYPE AND SCREEN, 2023-02-26 11:53:00 [facility] OBSTETRICAL PATIENT Kaisee ANESTHESIA EPIDURAL 2023-02-26 10:26:[facility] URINE CULTURE 2023-02-26 08:01:00 [facility] Kaise URINE DRUGS OF ABUSE 2023-02-26 07:38:00 [facility] SCREEN Kaisee URINALYSIS SCREEN AND 2023-02-26 07:38:00 [facility] MICROSCOPY, WITH REFLEX Kaisee TO CULTURE SYPHILIS TREPONEMA 2023-02-25 15:18:00 [facility] SCREEN WITH RPR Kaisee CONFIRMATION (REVERSE ALGORITHM) HIV 1/2 2023-02-25 15:18:00 [facility] ANTIGEN/ANTIBODY, FOURTH Kaisee GENERATION, WITH REFLEXES HEPATITIS B SURFACE 2023-02-25 15:18:00 [facility] ANTIGEN Kaisee CBC WITH PLATELET AND 2023-02-25 15:18:00 [facility] DIFFERENTIAL Kaisee ABO/RH 2023-02-25 15:18:00 Valentina Eduardo [facility] US BIOPHYSICAL 2023-02-24 13:19:00 Valentina Eduardo [facility] PROFILE Kaisee WET PREP 2023-02-24 12:57:00 Valentina Eudardo [facility] URINE CULTURE 2023-02-24 12:52:00 Francisco JavierCarlosEdilia donaldhy Cassidy [facility] URINALYSIS SCREEN AND 2023-02-24 12:42:00 Francisco JavierValentina Arthur MICROSCOPY, WITH REFLEX [facility] TO CULTURE AMNISURE 2023-02-24 12:42:00 Francisco JavierValentina Arthur [facility] Becoming A Mom 2022-10-28 13:40:52 Kathe Mathew [facility], single 2022-10-13 14:23:39 Zoya Barahona y Community fetus [facility] Plan of Care Planned Activity Planned Date Details Comments Source Future Scheduled 2023-03-13 COVID-19 [facility]ACCINE (#[facility] 10:57:59 [code = COVID-19 VACCINE (#1)] Future Scheduled 2023-03-13 Screening for [facility] Test 10:57:59 Chlamydia trachomatis (procedure) [code = 794216472] Future Scheduled 2023-03-13 Hepatitis C screening [facility] Test 10:57:59 (procedure) [code = 411206441] Future Scheduled 2023-03-13 Screening for [facility] Test 10:57:59 malignant neoplasm of cervix (procedure) [code = 460766137] Future Scheduled 2023-03-13 ZZZ INFLUENZA VACCINE [facility] 10:57:59 [code = ZZZ INFLUENZA VACCINE] Future Scheduled 2023-03-13 INFLUENZA VACCINE [facility] Test 10:57:59 [code = INFLUENZA VACCINE] Future Scheduled 2023-03-13 COVID-19 VACCINE (#1) [facility] 10:57:59 [code = COVID-19 VACCINE (#1)] Future Scheduled 2023-03-13 Screening for [facility] Test 10:57:59 Chlamydia trachomatis (procedure) [code = 872459645] Future Scheduled 2023-03-13 Hepatitis C screening [facility] Test 10:57:59 (procedure) [code = 843407411] Future Scheduled 2023-03-13 Screening for [facility] Test 10:57:59 malignant neoplasm of cervix (procedure) [code = 673020471] Encounters Start End Encounter Admission Attending Care Care Encounter Source Date/Time Date/Time Type Type Clinicians Facility Department ID 2023-02-23 Outpatient [email or web address] [facility] [id number] [facility] 13:39:01 [id number] [facility] 2023-02-11 [email or web address] [id number] 14:07:03 [id number] [facility] 2023-01-29 Outpatient lc.[email or web address] [facility] [id number] [facility] 13:43:03 [id number] [facility] 2023-01-26 Outpatient [email or web address].[email or web address] [facility] [id number] [facility] 11:27:04 [id number] [facility] 2023-01-22 Outpatient [email or web address] [facility] [id number] [facility] 16:05:04 [id number] [facility] 2022-12-08 Outpatient [email or web address] [facility] [id number] [facility] 13:23:33 [id number] [facility] 2022-11-14 Outpatient [email or web address] [facility] [id number] [facility] 10:17:11 [id number] [facility] 2022-10-24 Outpatient [email or web address] [facility] [id number] [facility] 23:21:54 [id number] [facility] 2022-10-19 Outpatient [email or web address] [facility] [id number] [facility] 18:07:05 [id number] [facility] 2022-10-07 Outpatient [email or web address] [facility] [id number] [facility] 13:01:08 [id number] [facility] 2022-09-25 Outpatient [email or web address] [facility] [id number] [facility] 10:21:12 [id number] [facility] 2022-09-21 Outpatient [facility] [id number] [facility] 20:46:04 [id number] [facility] 2022-09-12 Outpatient [facility] [id number] [facility] 14:13:04 [id number] [facility] 2023-03-02 2023-03-02 Patient Kevin, 1.2.840.1 [id number] Methodi 00:00:00 00:00:00 Outreach Leanna [id number] 3.430.2.7 Hospit a .3.363054 l .8 2023-03-02 2023-03-02 Patient Kevin, 1.2.840.1 [id number] [facility] 00:00:00 00:00:00 Outreach Leanna [id number] 3.430.2.7 Hospit a .3.167960 l .8 2023-02-26 2023-02-[address] [facility] 1.2.840.1 [id number] Methodi 01:54:00 17:01:00 Encounter Valentina gipson [id number] [facility] 3.430.2.7 Hospit a .3.777392 l .8 2023-02-26 2023-02-[address] [facility] 1.2.840.1 [id number] Methodi 01:54:00 17:01:00 Encounter Valentina gipson [id number] [facility] 3.430.2.7 Hospit a .3.053571 l .8 2023-02-26 2023-02-26 Anesthesia [facility] 1.2.840.1 [id number] Methodi 05:07:00 16:30:00 Event Krunal Rincon 84748.1.[address] 3.430.2.7 Hospit a .3.098110 l .8 2023-02-26 2023-02-26 Anesthesia [facility] 1.2.840.1 [id number] Methodi 05:07:00 16:30:00 Event Krunal Rincon 83693.1.[address] 3.430.2.7 Hospit a .3.374339 l .8 2023-02-26 2023-02-26 Documentat Provider, 1.2.840.1 [id number] Methodi 00:00:00 00:00:00 ion Unknown [id number] 3.430.2.7 Hospit a .3.588222 l .8 2023-02-26 2023-02-26 Documentat Provider, 1.2.840.1 [id number] Methodi 00:00:00 00:00:00 ion Unknown [id number] 3.430.2.7 Hospit a .3.299444 l .8 2023-02-25 2023-02-25 Outpatient [facility] [id number] [place] 00:00:00 00:00:00 EDILIA GIPSONHY 074 Met [facility] 2023-02-24 2023-02-[address] [facility] 1.2.840.1 [id number] Methodi 06:59:00 08:50:00 Encounter leonela Valentina [id number] [facility] 3.430.2.7 Hospit a .3.711093 l .8 2023-02-24 2023-02-[address] [facility] 1.2.840.1 [id number] Methodi 06:59:00 08:50:00 Encounter leonela Valentina [id number] [facility] 3.430.2.7 Hospit a .3.935135 l .8 2023-02-19 2023-02-19 In-person Jefe Carpenter [facility] Jacinto [place]idwell to Encounter/ [facility] 00:00:00 00:00:00 encounter Dolly Sol COMMUNITY DEVELOPMENT MANAGER [id number] [facility] [id number] [facility] 2023-02-19 2023-02-19 In-person Jefe Carpenter [facility] Jacinto Tidwell to [id number] [facility] 00:00:00 00:00:00 encounter Dolly Sol COMMUNITY DEVELOPMENT MANAGER 23 [id number] Communi ty Health 2023-02-18 2023-02-18 Orders Francisco Javier-Osterma 1.2.840.1 [id number] Methodi 00:00:00 00:00:00 Only leonela, Valentina 15164.1.1 183 s t [place] 3.430.2.7 Hospit a .3.171302 l .8 2023-02-18 2023-02-18 Orders Francisco Javier-Osterma 1.2.840.1 [id number] 21 [id number] Methodi 00:00:00 00:00:00 Only leonela, Valentina [id number] 088 s t [place] 3.430.2.7 Hospit a .3.492080 l .8 2023-02-18 2023-02-18 Orders Francisco Javier-Osterma 1.2.840.1 [id number] Methodi 00:00:00 00:00:00 Only leonela, Valentina [id number] 183 s t [place] 3.430.2.7 Hospit a .3.900784 l .8 2023-02-18 2023-02-18 Orders Francisco Javier-Osterma 1.2.840.1 [id number] Methodi 00:00:00 00:00:00 Only leonela, Valentina [id number] 088 s t [place] 3.430.2.7 Hospit a .3.689563 l .8 2023-02-12 2023-02-12 In-person Jefe Carpenter [facility] Jacinto Tidwell to Encounter/ [facility] 00:00:00 00:00:00 encounter [facility] [id number] Communi Practice [id number] ty Health 2023-02-12 2023-02-12 In-person Jefe Carpenter [facility] Jacinto Tidwell to [id number] [facility] 00:00:00 00:00:00 encounter Rubi Diaz [facility] [id number] 3 Communi Practice ty Health 2023-01-23 2023-01-23 In-person Jefe Carpenter [facility] Jacinto Tidwell to [id number] [facility] 00:00:00 00:00:00 encounter Janice Browna COMMUNITY DEVELOPMENT MANAGER [id number] Dolly Silva Health 2023-01-23 2023-01-23 In-person Jefe Carpenter [facility] Jacinto Tidwell to Encounter/ [facility] 00:00:00 00:00:00 encounter Hilaria Brown COMMUNITY DEVELOPMENT MANAGER [id number] Dolly Silva [id number] Health 2022-11-18 2022-11-18 In-person Leena Bey [facility] [place] [id number] [facility] 00:00:00 00:00:00 encounter Juli, Jodie [facility] r [id number] [place] [facility] ty Health 2022-11-18 2022-11-18 In-person Leena Bey [facility] [place] Encounter/ [facility] 00:00:00 00:00:00 [facility] [id number] [id number] 2022-10-28 2022-10-28 In-person Kathe Mathew [facility] Legacy [place] Encounter/ [facility] 00:00:00 00:00:00 encounter Viktoriya Guido Rice 19 [id number] [place] [id number] ty Health 2022-10-28 2022-10-28 In-person Kathe Mathew [facility] [place] [id number] Legacy 00:00:00 00:00:00 encounter Viktoriya Gu[facility] 23 [id number] Mariaelena Ewing OB ty Health 2022-10-13 2022-10-13 In-person Zoya Barahona [facility] S [place] [id number] Legacy 00:00:00 00:00:00 encounter Painter Rekha OB [id number] Magaly Renee ty Health 2022-10-13 2022-10-13 In-person Zoya Barahona [facility] S [place] Encounter/ [facility] 00:00:00 00:00:00 encounter Painter, Rekha OB 1994 [id number] Magaly Renee [id number] ty Health 2022-09-24 2022-09-24 In-person Chely Berrios [facility] [place] [id number] Legacy 00:00:00 00:00:00 encounter Yumiko Alejandra Dot Mckaye r [id number] Commun[facility]iktoriya Turner ty Bacs[place], [place] Health 2022-09-24 2022-09-24 In-person Chely Berrios [facility] [place] Encounter/ [facility] 00:00:00 00:00:00 encounter Viktoriya [facility] 137 [id number] [place] [address] 0 Health 2022-08-12 2022-08-13 Emergency [facility] [id number] Memoria 14:17:59 00:08:[address] 2022-08-12 2022-08-13 Emergency [facility] [id number] [id number] Memoria 14:17:59 00:08:[address] 2022-08-12 2022-08-12 Outpatient Ml, [facility] [id number] 875 08:17:59 18:08:00 Juan Daniel [address] [place] [address] 2022-08-12 2022-08-12 Emergency E ML, [facility] [address] [facility] 08:17:00 18:08:00 JUAN DANIEL Results Test Description Test Time Test Comments Results Result Comments Source Urine culture 2023-02-27 23:37:00 Test Item Value Reference Range Interpretation Comme nts Urine culture isolate Mixed carli <=10-3 Specimen InformationSpecimen (test code = 37119-3) col/cc Source : UrineSpecimen Site: Clean catch Urine [id number] 23:37:00 Test Item Value Reference Range Interpretation Comments Urine culture Mixed carli Specimen isolate (test <=10-3 col/cc InformationSp ecimen code = 74778-8) Source: Urin eSpecimen Site: Clean cat [facility] particle agglutination assay (TPPA test) 2023-02-12 13:23:00 Test Item Value Reference Range Interpretation Comments Treponema pallidum particle NEGATIVE NEGATIVE N agglutination assay (TPPA test) (test code = 09610-9) [facility] iawfuqahoo3939-59-57 13:23:00 Test Item Value Reference Range Interpretation Comments basophils as percent of blood 0.2 % N leukocytes (test code = 707-0) [facility] Healtheosinophils as percent of blood bkorhohivo9885-74-38 13:23:00 Test Item Value Reference Range Interpretation Comments eosinophils as percent of blood 0.5 % N leukocytes (test code = 714-6) [facility] Healthmonocytes as percent of blood tmzyuidznu5330-94-74 13:23:00 Test Item Value Reference Range Interpretation Comments monocytes as percent of blood 6.3 % N leukocytes (test code = 5905-5) [facility] Healthlymphocytes as percent of blood tdxyxwgbdx1656-96-37 13:23:00 Test Item Value Reference Range Interpretation Comments lymphocytes as percent of blood 10.3 % N leukocytes (test code = 736-9) [facility] percent of blood bphxfwwwnn3537-87-17 13:23:00 Test Item Value Reference Range Interpretation Comments neutrophils as percent of blood 82.7 % N leukocytes (test code = 770-8) [facility] count, xkgdxose3819-02-36 13:23:00 Test Item Value Reference Range Interpretation Comments basophil count, absolute (test 23 cells/uL 0-200 N code = 03591-5) [facility] Eosinophil jpaee4900-71-25 13:23:00 Test Item Value Reference Range Interpretation Comments Absolute Eosinophil count (test 57 cells/mcL 15-500 N code = 51960-5) [facility]Absolute Monocyte uylim5385-93-60 13:23:00 Test Item Value Reference Range Interpretation Comments Absolute Monocyte count (test 712 cells/mcL 200-950 N code = 58965-5) [facility] Hospitallymphocytes, notqogre1546-09-07 13:23:00 Test Item Value Reference Range Interpretation Comments lymphocytes, absolute (test 1164 CELLS/UL 850-3900 N code = 46868-3) [facility] Neutrophil tykam7083-30-80 13:23:00 Test Item Value Reference Range Interpretation Comments Absolute Neutrophil count 9345 cells/mcL 5176-8964 H (test code = 62705-6) [facility]mean platelet ijbapw7718-77-00 13:23:00 Test Item Value Reference Range Interpretation Comments mean platelet volume (test code = 10.5 fL 7.5-12.5 N 776-5) [facility] Hospitalplatelet feiki1171-15-74 13:23:00 Test Item Value Reference Range Interpretation Comments platelet count (test code = 270 THOUSAND/UL 140-400 N 777-3) [facility] Hospitalred blood cell distribution mpuft7229-93-01 13:23:00 Test Item Value Reference Range Interpretation Comments red blood cell distribution width 14.1 % 11.0-15.0 N (test code = 788-0) [facility] corpuscular hemoglobin concentration, [id number] 13:23:00 Test Item Value Reference Range Interpretation Comments mean corpuscular hemoglobin 33.0 G/DL 32.0-36.0 N concentration, RBC (test code = 786-4) [facility] corpuscular hemoglobin, [id number] 13:23:00 Test Item Value Reference Range Interpretation Comments mean corpuscular hemoglobin, RBC 26.5 pg 27.0-33.0 L (test code = 785-6) [facility], [id number] 13:23:00 Test Item Value Reference Range Interpretation Comments mean corpuscular volume, RBC (test 80.4 fL 80.0-100.0 N code = 787-2) [facility]hematocrit, gipnb9966-00-21 13:23:00 Test Item Value Reference Range Interpretation Comments hematocrit, blood (test code = 4544-3) 30.3 % 35.0-45.0 L [facility] Hospitalhemoglobin, ovbtw1855-05-38 13:23:00 Test Item Value Reference Range Interpretation Comments hemoglobin, blood (test code = 10.0 g/dL 11.7-15.5 L 718-7) [facility] Hospitalerythrocyte (RBC) ngcuq6277-80-88 13:23:00 Test Item Value Reference Range Interpretation Comments erythrocyte (RBC) count (test 3.77 MILLION/UL 3.80-5.10 L code = 789-8) [facility]leukocyte count, bzksl1675-77-84 13:23:00 Test Item Value Reference Range Interpretation Comments leukocyte count, blood (test 11.3 THOUSAND/UL 3.8-10.8 H code = 6690-2) [facility] HospitalHIV-CMIA (Chemiluminescent Microparticle Immuno Assay) 2023-02-12 13:23:00 Test Item Value Reference Range Interpretation Comments HIV-CMIA (Chemiluminescent NON-REACTIVE NON-REACTIVE N Microparticle Immuno Assay) (test code = 96673-0) [facility] HospitalNeisseria gonorrhoeae DNA fwkpt4212-22-75 14:42:00 Test Item Value Reference Range Interpretation Comments Neisseria gonorrhoeae DNA probe NOT DETECTED NOT DETECTED N (test code = 53003-3) [facility] Hospitalchlamydia DNA [id number] 14:42:00 Test Item Value Reference Range Interpretation Comments chlamydia DNA probe (test code = NOT DETECTED NOT DETECTED N 28300-2) [facility] HospitalNeisseria gonorrhoeae DNA ofebt8294-27-98 14:42:00 Test Item Value Reference Range Interpretation Comments Neisseria gonorrhoeae DNA probe NOT DETECTED NOT DETECTED N (test code = 76655-5) [facility] Hospitalrubella antibody, serum, [id number] 14:34:00 Test Item Value Reference Range Interpretation Comments rubella antibody, serum, 2.33 (unknown unit) N IgG (test code = 5334-8) [facility]basophils as percent of blood wdofxcwxzj2606-75-52 14:34:00 Test Item Value Reference Range Interpretation Comments basophils as percent of blood 0.2 % N leukocytes (test code = 707-0) [facility]aleosinophils as percent of blood ueyadekdlp9951-00-87 14:34:00 Test Item Value Reference Range Interpretation Comments eosinophils as percent of blood 0.7 % N leukocytes (test code = 714-6) [facility] Healthmonocytes as percent of blood ictguuuqxv9550-97-77 14:34:00 Test Item Value Reference Range Interpretation Comments monocytes as percent of blood 4.2 % N leukocytes (test code = 5905-5) [facility]allymph[facility] as percent of blood dboeybkoqs1669-05-01 14:34:00 Test Item Value Reference Range Interpretation Comments lymphocytes as percent of blood 13.6 % N leukocytes (test code = 736-9) [facility] Hospitalneutrophils as percent of blood uimyzsfdsg4119-07-81 14:34:00 Test Item Value Reference Range Interpretation Comments neutrophils as percent of blood 81.3 % N leukocytes (test code = 770-8) [facility] Hospitalbasophil count, svnvmwhr1121-04-08 14:34:00 Test Item Value Reference Range Interpretation Comments basophil count, absolute (test 21 cells/uL 0-200 N code = 71118-2) [facility]Absolute Eosinophil dyrhr6245-29-19 14:34:00 Test Item Value Reference Range Interpretation Comments Absolute Eosinophil count (test 72 cells/mcL 15-500 N code = 51928-9) [facility]Absolute Monocyte iiqur0580-59-26 14:34:00 Test Item Value Reference Range Interpretation Comments Absolute Monocyte count (test 433 cells/mcL 200-950 N code = 15291-9) [facility] Hospitallymphocytes, iukztzfm6131-45-33 14:34:00 Test Item Value Reference Range Interpretation Comments lymphocytes, absolute (test 1401 CELLS/UL 850-3900 N code = 06841-9) [facility] Neut[facility]il aynra1529-30-03 14:34:00 Test Item Value Reference Range Interpretation Comments Absolute Neutrophil count 8374 cells/mcL 6929-8136 H (test code = 67790-1) [facility] platelet iptkhm2553-52-96 14:34:00 Test Item Value Reference Range Interpretation Comments mean platelet volume (test code = 10.5 fL 7.5-12.5 N 776-5) [facility] Hospitalplatelet gypyn8801-62-35 14:34:00 Test Item Value Reference Range Interpretation Comments platelet count (test code = 266 THOUSAND/UL 140-400 N 777-3) [facility] Hospitalred blood cell distribution zfaaa8642-15-31 14:34:00 Test Item Value Reference Range Interpretation Comments red blood cell distribution width 12.1 % 11.0-15.0 N (test code = 788-0) [facility] corpuscular hemoglobin concentration, [id number] 14:34:00 Test Item Value Reference Range Interpretation Comments mean corpuscular hemoglobin 35.6 G/DL 32.0-36.0 N concentration, RBC (test code = 786-4) [facility] hemoglobin, [id number] 14:34:00 Test Item Value Reference Range Interpretation Comments mean corpuscular hemoglobin, RBC 32.6 pg 27.0-33.0 N (test code = 785-6) [facility]mean corpuscular volume, [id number] 14:34:00 Test Item Value Reference Range Interpretation Comments mean corpuscular volume, RBC (test 91.5 fL 80.0-100.0 N code = 787-2) [facility] Hospitalhematocrit, lmupw6736-46-81 14:34:00 Test Item Value Reference Range Interpretation Comments hematocrit, blood (test code = 4544-3) 31.2 % 35.0-45.0 L [facility] Hospitalhemoglobin, nvpfe2849-99-63 14:34:00 Test Item Value Reference Range Interpretation Comments hemoglobin, blood (test code = 11.1 g/dL 11.7-15.5 L 718-7) [facility] Hospitalerythrocyte (RBC) gbkql7294-60-55 14:34:00 Test Item Value Reference Range Interpretation Comments erythrocyte (RBC) count (test 3.41 MILLION/UL 3.80-5.10 L code = 789-8) [facility] Hospitalleukocyte count, sdhpq7993-50-66 14:34:00 Test Item Value Reference Range Interpretation Comments leukocyte count, blood (test 10.3 THOUSAND/UL 3.8-10.8 N code = 6690-2) [facility] Hospitalblood glucose, 1 hour after 50 gm oral sxmhrgf4320-61-04 14:34:00 Test Item Value Reference Range Interpretation Comments blood glucose, 1 hour after 50 gm 121 mg/dL <135 N oral glucose (test code = 1039) [facility] Hospitalpregnancy test, wdxk3893-49-96 13:41:34 Test Item Value Reference Range Interpretation Comments test, type (test code = home 6-3) [facility]beta HCG, urine, bqvzgdzhymxfywmg4969-26-69 13:41:34 Test Item Value Reference Range Interpretation Comments beta HCG, urine, semiquantitative positive (test code = 2106-3) [facility] Hospitalurine bmwyvot6947-10-79 12:38:00 Test Item Value Reference Range Interpretation Comments urine culture (test Mixed genital carli code = 630-4) isolated. These superficial [facility] HospitalNeisseria gonorrhoeae DNA [id number] 12:29:00 Test Item Value Reference Range Interpretation Comments Neisseria gonorrhoeae DNA probe NOT DETECTED NOT DETECTED N (test code = 80724-1) [facility] HospitalNeisseria gonorrhoeae DNA [id number] 12:29:00 Test Item Value Reference Range Interpretation Comments Neisseria gonorrhoeae DNA probe NOT DETECTED NOT DETECTED N (test code = 74886-1) [facility] Hospitalchlamydia DNA fbkgz7421-02-35 12:29:00 Test Item Value Reference Range Interpretation Comments chlamydia DNA probe (test code = DETECTED NOT DETECTED A 60179-3) [facility] vaylbrf0047-04-76 11:28:00 Test Item Value Reference Range Interpretation Comments Rh antigen (test code = 255) RH(D) POSITIVE [facility] HospitalABO blood lequp7825-97-27 11:28:00 Test Item Value Reference Range Interpretation Comments ABO blood group (test code = 116) O [facility] xirystpr8818-51-66 11:28:00 Test Item Value Reference Range Interpretation Comments Rh antibody (test code NO ANTIBODIES DETECTED N = 256) [facility] HospitalTreponema pallidum particle agglutination assay (TPPA test)2022-09-24 11:28:00 Test Item Value Reference Range Interpretation Comments Treponema pallidum particle NEGATIVE N agglutination assay (TPPA test) (test code = 79842-5) [facility]alpha-1 fetoprotein, maternal ,serum, multiples of median 2022-09-24 11:28:00 Test Item Value Reference Range Interpretation Comments alpha-1 fetoprotein, maternal 0.79 (?) ,serum, multiples of median (test code = 4302) [facility] fetoprotein, xleih6600-80-49 11:28:00 Test Item Value Reference Range Interpretation Comments alpha-1 fetoprotein, serum (test 42.0 ng/mL code = 2754) [facility] Hospitalalpha-fetoprotein interpretation of wwofdzn3318-32-93 11:28:00 Test Item Value Reference Range Interpretation Comments alpha-fetoprotein Screen negative for interpretation of results open NTD. (test code = 8076) [facility] HealthHepatitis C Antibody, Signal to Yzs-Hic6511-05-22 11:28:00 Test Item Value Reference Range Interpretation Comments Hepatitis C Antibody, 0.07 (unknown unit) <1.00 N Signal to Cut-Off (test code = 88365-8) [facility] Hospitalhepatitis C antibody, myvro4042-32-78 11:28:00 Test Item Value Reference Range Interpretation Comments hepatitis C antibody, serum NON-REACTIVE NON-REACTIVE N (test code = 64721-8) [facility] Hospitalhepatitis B surface ajzsjtr8805-75-34 11:28:00 Test Item Value Reference Range Interpretation Comments hepatitis B surface antigen NON-REACTIVE NON-REACTIVE N (test code = 18081-7) [facility] Healthbasophils as percent of blood czpgxmukxy0654-92-63 11:28:00 Test Item Value Reference Range Interpretation Comments basophils as percent of blood 0.2 % N leukocytes (test code = 707-0) [facility]aleosinophils as percent of blood imnmitgpzv6107-56-36 11:28:00 Test Item Value Reference Range Interpretation Comments eosinophils as percent of blood 0.5 % N leukocytes (test code = 714-6) [facility] Healthmonocytes as percent of blood icksdgebvk8810-93-47 11:28:00 Test Item Value Reference Range Interpretation Comments monocytes as percent of blood 5.0 % N leukocytes (test code = 5905-5) [facility]allymphocytes as percent of blood chsgikzwdd1572-11-43 11:28:00 Test Item Value Reference Range Interpretation Comments lymphocytes as percent of blood 13.8 % N leukocytes (test code = 736-9) [facility] Hospitalneutrophils as percent of blood dwgcfwovpp4612-81-81 11:28:00 Test Item Value Reference Range Interpretation Comments neutrophils as percent of blood 80.5 % N leukocytes (test code = 770-8) [facility] Hospitalbasophil count, syvqmulj3204-82-22 11:28:00 Test Item Value Reference Range Interpretation Comments basophil count, absolute (test 20 cells/uL 0-200 N code = 21447-1) [facility]Absolute Eosinophil nfjyv8364-07-16 11:28:00 Test Item Value Reference Range Interpretation Comments Absolute Eosinophil count (test 50 cells/mcL 15-500 N code = 44951-4) [facility]Absolute Monocyte pxmjc8643-11-43 11:28:00 Test Item Value Reference Range Interpretation Comments Absolute Monocyte count (test 500 cells/mcL 200-950 N code = 02603-4) [facility] Hospitallymphocytes, wwoxpoeq9391-63-12 11:28:00 Test Item Value Reference Range Interpretation Comments lymphocytes, absolute (test 1380 CELLS/UL 850-3900 N code = 44751-2) [facility]Absolute Neutrophil xfxty7807-20-79 11:28:00 Test Item Value Reference Range Interpretation Comments Absolute Neutrophil count 8050 cells/mcL 2548-8104 H (test code = 90680-7) [facility] platelet cvxwoh7919-04-58 11:28:00 Test Item Value Reference Range Interpretation Comments mean platelet volume (test code = 10.4 fL 7.5-12.5 N 776-5) [facility] Hospitalplatelet amogk6344-84-02 11:28:00 Test Item Value Reference Range Interpretation Comments platelet count (test code = 264 THOUSAND/UL 140-400 N 777-3) [facility] Hospitalred blood cell distribution wtspl4810-05-77 11:28:00 Test Item Value Reference Range Interpretation Comments red blood cell distribution width 14.6 % 11.0-15.0 N (test code = 788-0) [facility] corpuscular hemoglobin concentration, [id number] 11:28:00 Test Item Value Reference Range Interpretation Comments mean corpuscular hemoglobin 35.4 G/DL 32.0-36.0 N concentration, RBC (test code = 786-4) [facility] corpuscular hemoglobin, [id number] 11:28:00 Test Item Value Reference Range Interpretation Comments mean corpuscular hemoglobin, RBC 30.9 pg 27.0-33.0 N (test code = 785-6) [facility] corpuscular volume, [id number] 11:28:00 Test Item Value Reference Range Interpretation Comments mean corpuscular volume, RBC (test 87.4 fL 80.0-100.0 N code = 787-2) [facility] Hospitalhematocrit, dvaea1770-81-47 11:28:00 Test Item Value Reference Range Interpretation Comments hematocrit, blood (test code = 4544-3) 32.5 % 35.0-45.0 L [facility] Hospitalhemoglobin, tqriv2541-71-86 11:28:00 Test Item Value Reference Range Interpretation Comments hemoglobin, blood (test code = 11.5 g/dL 11.7-15.5 L 718-7) [facility] Hospitalerythrocyte (RBC) dkdhd3390-05-24 11:28:00 Test Item Value Reference Range Interpretation Comments erythrocyte (RBC) count (test 3.72 MILLION/UL 3.80-5.10 L code = 789-8) [facility] Hospitalleukocyte count, lhisi0976-60-59 11:28:00 Test Item Value Reference Range Interpretation Comments leukocyte count, blood (test 10.0 THOUSAND/UL 3.8-10.8 N code = 6690-2) [facility] HospitalHIV-CMIA (Chemiluminescent Microparticle Immuno Assay) 2022-09-24 11:28:00 Test Item Value Reference Range Interpretation Comments HIV-CMIA (Chemiluminescent NON-REACTIVE NON-REACTIVE N Microparticle Immuno Assay) (test code = 58532-5) [facility] Hospitalhepatitis C antibody, [id number] 11:28:00 Test Item Value Reference Range Interpretation Comments hepatitis C antibody, serum NON-REACTIVE NON-REACTIVE N (test code = 5199-5) [facility] HospitalHerpes Simplex Virus Yrirtpc0141-39-87 10:21:05 Test Item Value Reference Range Interpretation Comments Herpes Simplex Virus Genital (test code no = 5856-0) [facility] Hospitalpregnancy test, ydpe7689-47-69 10:21:05 Test Item Value Reference Range Interpretation Comments test, type (test code = home 2106-3) [facility]beta HCG, urine, dgeutbddamyjvgke9418-26-47 10:21:05 Test Item Value Reference Range Interpretation Comments beta HCG, urine, semiquantitative positive (test code = 2106-3) [facility] HospitalCystic Fibrosis DNA, Whole [id number] 00:00:00 Test Item Value Reference Range Interpretation Comments Cystic Fibrosis DNA, Whole Blood Negative N (test code = 64122) [facility] HospitalRADRPT2023-01-10 22:42:32 Test Item Value Reference Range Interpretation [...] cm corresponds to 11 weeks 5 days. Coleman-rump length (CRL): 5.57 cm corresponds to 12 [...] N Engl J Med 2013; 369: 1443-[address] [facility] IhqctyaAQOCUY8483-45-41 22:42:32 Test Item Value Reference Range Interpretation [...] cm corresponds to 11 weeks 5 days. Coleman-rump length (CRL): 5.57 cm corresponds to 12 [...] N Engl J Med 2013; 369: 1443-51 [facility] HospitalCkgbumpEYZKHC1149-63-15 22:42:32 Test Item Value Reference Range Interpretation [...] cm corresponds to 11 weeks 5 days. Coleman-rump length (CRL): 5.57 cm corresponds to 12 [...] N Engl J Med 2013; 369: 1443-51 [facility] HospitalSqtdootBLKUDI9926-83-97 22:42:32 Test Item Value Reference Range Interpretation [...] cm corresponds to 11 weeks 5 days. Coleman-rump length (CRL): 5.57 cm corresponds to 12 [...] of 12 weeks and 2 days. Reference:Edvin PM et al. Diagnostic Criteria for Nonviable Early in the First Trimester. N Engl J Med 2013; 369: 1443-[address] [facility] OurdstbPPAGZW1164-90-64 22:42:32 Test Item Value Reference Range Interpretation [...] cm corresponds to 11 weeks 5 days. Coleman-rump length (CRL): 5.57 cm corresponds to 12 [...] N Engl J Med 2013; 369: 1443-51 [facility]EienjxmGCEKQP4196-91-92 22:42:32 Test Item Value Reference Range Interpretation [...] cm corresponds to 11 weeks 5 days. Coleman-rump length (CRL): 5.57 cm corresponds to 12 [...] N Engl J Med 2013; 369: 1443-51 [facility] [id number] 21:28:00 Test Item Value Reference Range Interpretation Comments ABO/Rh (test code = ABO/Rh) O POS [employer] [id number] 21:28:00 Test Item Value Reference Range Interpretation Comments Antibody Scrn (test Negative (08/12/22 3:28 code = Antibody Scrn) PM) [facility] [id number] 21:28:00 Test Item Value Reference Range Interpretation Comments ABO/Rh (test code = ABO/Rh) O POS [facility]Plan[facility] PaymentF[facility] [id number] 21:28:00 Test Item Value Reference Range Interpretation Comments Antibody Scrn (test Negative (08/12/22 3:28 code = Antibody Scrn) PM) [facility] PaymentF[facility] [id number] 21:28:00 Test Item Value Reference Range Interpretation Comments ABO/Rh (test code = ABO/Rh) O POS [facility]Plan[facility] PaymentF[facility] [id number] 21:28:00 Test Item Value Reference Range Interpretation Comments Antibody Scrn (test Negative (08/12/22 3:28 code = Antibody Scrn) PM) [facility]Plan[facility] PaymentF[facility] [id number] 21:28:00 Test Item Value Reference Range Interpretation Comments ABO/Rh (test code = ABO/Rh) O [facility] [employer] [facility] [id number] 21:28:00 Test Item Value Reference Range Interpretation Comments Antibody Scrn (test Negative (08/12/22 3:28 code = Antibody Scrn) PM) [facility]Plan[facility] PaymentF[facility] [id number] 21:28:00 Test Item Value Reference Range Interpretation Comments ABO/Rh (test code = ABO/Rh) O formerly [facility] [employer] [facility] [id number] 21:28:00 Test Item Value Reference Range Interpretation Comments Antibody Scrn (test Negative (08/12/22 3:28 code = Antibody Scrn) PM) [facility]Plan[facility]LA[facility] [employer] [id number] 21:28:00 Test Item Value Reference Range Interpretation Comments ABO/Rh (test code = ABO/Rh) [facility] [employer]Vo[employer] [facility] [id number] 21:28:00 Test Item Value Reference Range Interpretation Comments Antibody Scrn (test Negative (08/12/22 3:28 code = Antibody Scrn) PM) [id number] 21:18:26 Test Item Value Reference Range Interpretation Comments hCG Tot (test code = hCG Tot) 18064 [facility] CenterNcbvhriBNLPGHYGW5042-18-94 21:18:26 Test Item Value Reference Range Interpretation Comments hCG Tot (test code = hCG Tot) 43615 [facility] DallasBgawhawLGJJYKGWB9040-80-17 21:18:26 Test Item Value Reference Range Interpretation Comments hCG Tot (test code = hCG Tot) 86854 [facility] CenterFcilbpvGMQMUYADZ4028-83-15 21:18:26 Test Item Value Reference Range Interpretation Comments hCG Tot (test code = hCG Tot) 21457 [facility] Cen[id number] 21:18:26 Test Item Value Reference Range Interpretation Comments hCG Tot (test code = hCG Tot) 88911 [facility] DallasSdstcwlLFZGUWBMC9903-64-56 21:18:26 Test Item Value Reference Range Interpretation Comments hCG Tot (test code = hCG Tot) 53654 [facility] DallasCulture: [id number] 16:36:00 Test Item Value Reference Range Interpretation Comments Culture: Urine (test code No Growth; Holding = Culture: Urine) [facility] [id number] 16:36:00 Test Item Value Reference Range Interpretation Comments Culture: Urine (test code No Growth; Holding = Culture: Urine) [facility]: [id number] 16:36:00 Test Item Value Reference Range Interpretation Comments Culture: Urine (test code No Growth; Holding = Culture: Urine) [facility]: [id number] 16:36:00 Test Item Value Reference Range Interpretation Comments Culture: Urine (test code No Growth; Holding = Culture: Urine) [facility]: [id number] 16:36:00 Test Item Value Reference Range Interpretation Comments Culture: Urine (test code No Growth; Holding = Culture: Urine) [facility]: [id number] 16:36:00 Test Item Value Reference Range Interpretation Comments Culture: Urine (test code No Growth; Holding = Culture: Urine) [facility] [id number] 15:44:15 Test Item Value Reference Range Interpretation Comments UA Ketones (test code = >=80 *ABN*(08/12/22 UA Ketones) 9:44 AM) [facility] [id number] 15:44:15 Test Item Value Reference Range Interpretation Comments UA Bili (test code = Moderate *ABN*(08/12/22 UA Bili) 9:44 AM) [facility] [id number] 15:44:15 Test Item Value Reference Range Interpretation Comments UA Blood (test code = Negative (08/12/22 9:44 UA Blood) AM) [facility] [id number] 15:44:15 Test Item Value Reference Range Interpretation Comments UA Urobilinogen (test code = UA 4.0 0.1-1.0 Urobilinogen) [facility] [id number] 15:44:15 Test Item Value Reference Range Interpretation Comments UA Nitrite (test code Negative (08/12/22 9:44 = UA Nitrite) AM) [facility] [id number] 15:44:15 Test Item Value Reference Range Interpretation Comments UA Leuk Est (test code Small *ABN*(08/12/22 = UA Leuk Est) 9:44 AM) [facility] [id number] 15:44:15 Test Item Value Reference Range Interpretation Comments U Preg (test code = U Positive *ABN*(08/12/22 Preg) 9:44 AM) [facility] [id number] 15:44:15 Test Item Value Reference Range Interpretation Comments U Preg (test code = U Positive *ABN*(08/12/22 Preg) 9:44 AM) [facility] [id number] 15:44:15 Test Item Value Reference Range Interpretation Comments UA Sq Epi (test code = UA Sq Epi) Many /LPF [facility] [id number] 15:44:15 Test Item Value Reference Range Interpretation Comments UA WBC (test code = 23 See_Comment [Automa jose r message] The UA WBC) system which ge nerated this result transmit jose r reference range : <=5. The reference range was not used to interpr et this result as jerrod l/abnormal. [facility] [id number] 15:44:15 Test Item Value Reference Range Interpretation Comments UA RBC (test code = 6 See_Comment [Automa jose r message] The UA RBC) system which ge nerated this result transmit jose r reference range : <=2. The reference range was not used to interpr et this result as jerrod l/abnormal. [facility] [id number] 15:44:15 Test Item Value Reference Range Interpretation Comments UA Bacteria (test code = UA Occasional /HPF Bacteria) [facility] [id number] 15:44:15 Test Item Value Reference Range Interpretation Comments UA Mucus (test code = UA Mucus) Many /LPF [facility] [id number] 15:44:15 Test Item Value Reference Range Interpretation Comments UA Sq Epi (test code = UA Sq Epi) Many /LPF [facility] [id number] 15:44:15 Test Item Value Reference Range Interpretation Comments UA Color (test code = Yellow *NA*(08/12/22 UA Color) 9:44 AM) [facility] [id number] 15:44:15 Test Item Value Reference Range Interpretation Comments UA Turbidity (test code = Clear (08/12/22 9:44 UA Turbidity) AM) [facility] [id number] 15:44:15 Test Item Value Reference Range Interpretation Comments UA Spec Grav (test >=1.030 *ABN*(08/12/22 code = UA Spec Grav) 9:44 AM) [facility] [id number] 15:44:15 Test Item Value Reference Range Interpretation Comments UA pH (test code = UA pH) 6.0 1 5.0-8.0 [facility] [id number] 15:44:15 Test Item Value Reference Range Interpretation Comments UA Protein (test code = UA Protein) 30 mg/dL [facility] [id number] 15:44:15 Test Item Value Reference Range Interpretation Comments UA Glucose (test code Negative (08/12/22 9:44 = UA Glucose) AM) [facility] [id number] 15:44:15 Test Item Value Reference Range Interpretation Comments UA Ketones (test code = >=80 *ABN*(08/12/22 UA Ketones) 9:44 AM) [facility] [id number] 15:44:15 Test Item Value Reference Range Interpretation Comments UA Bili (test code = Moderate *ABN*(08/12/22 UA Bili) 9:44 AM) [facility] [id number] 15:44:15 Test Item Value Reference Range Interpretation Comments UA Blood (test code = Negative (08/12/22 9:44 UA Blood) AM) [facility] [id number] 15:44:15 Test Item Value Reference Range Interpretation Comments UA Urobilinogen (test code = UA 4.0 0.1-1.0 Urobilinogen) [facility] [id number] 15:44:15 Test Item Value Reference Range Interpretation Comments UA WBC (test code = 23 See_Comment [Automa jose r message] The UA WBC) system which ge nerated this result transmit jose r reference range : <=5. The reference range was not used to interpr et this result as jerrod l/abnormal. [facility] [id number] 15:44:15 Test Item Value Reference Range Interpretation Comments UA Nitrite (test code Negative (08/12/22 9:44 = UA Nitrite) AM) [facility] [id number] 15:44:15 Test Item Value Reference Range Interpretation Comments UA Leuk Est (test code Small *ABN*(08/12/22 = UA Leuk Est) 9:44 AM) [facility]UR[facility] AND [id number] 15:44:15 Test Item Value Reference Range Interpretation Comments UA RBC (test code = 6 See_Comment [Automa jose r message] The UA RBC) system which ge nerated this result transmit jose r reference range : <=2. The reference range was not used to interpr et this result as jerrod l/abnormal. [facility] AND [id number] 15:44:15 Test Item Value Reference Range Interpretation Comments UA Bacteria (test code = UA Occasional /HPF Bacteria) [facility] [id number] 15:44:15 Test Item Value Reference Range Interpretation Comments UA Mucus (test code = UA Mucus) Many /LPF [facility] [id number] 15:44:15 Test Item Value Reference Range Interpretation Comments UA Color (test code = Yellow *NA*(08/12/22 UA Color) 9:44 AM) [facility] [id number] 15:44:15 Test Item Value Reference Range Interpretation Comments UA Turbidity (test code = Clear (08/12/22 9:44 UA Turbidity) AM) [facility] [id number] 15:44:15 Test Item Value Reference Range Interpretation Comments U Preg (test code = U Positive *ABN*(08/12/22 Preg) 9:44 AM) [facility] [id number] 15:44:15 Test Item Value Reference Range Interpretation Comments UA Sq Epi (test code = UA Sq Epi) Many /LPF [facility] [id number] 15:44:15 Test Item Value Reference Range Interpretation Comments UA WBC (test code = 23 See_Comment [Automa jose r message] The UA WBC) system which ge nerated this result transmit jose r reference range : <=5. The reference range was not used to interpr et this result as jerrod l/abnormal. [facility] [id number] 15:44:15 Test Item Value Reference Range Interpretation Comments UA RBC (test code = 6 See_Comment [Automa jose r message] The UA RBC) system which ge nerated this result transmit jose r reference range : <=2. The reference range was not used to interpr et this result as jerrod l/abnormal. [facility] [id number] 15:44:15 Test Item Value Reference Range Interpretation Comments UA Bacteria (test code = UA Occasional /HPF Bacteria) [facility] [id number] 15:44:15 Test Item Value Reference Range Interpretation Comments UA Mucus (test code = UA Mucus) Many /LPF [facility] [id number] 15:44:15 Test Item Value Reference Range Interpretation Comments UA Color (test code = Yellow *NA*(08/12/22 UA Color) 9:44 AM) [facility] [id number] 15:44:15 Test Item Value Reference Range Interpretation Comments UA Turbidity (test code = Clear (08/12/22 9:44 UA Turbidity) AM) [facility] [id number] 15:44:15 Test Item Value Reference Range Interpretation Comments UA Spec Grav (test >=1.030 *ABN*(08/12/22 code = UA Spec Grav) 9:44 AM) [facility] [id number] 15:44:15 Test Item Value Reference Range Interpretation Comments UA pH (test code = UA pH) 6.0 1 5.0-8.0 [facility] [id number] 15:44:15 Test Item Value Reference Range Interpretation Comments UA Spec Grav (test >=1.030 *ABN*(08/12/22 code = UA Spec Grav) 9:44 AM) [facility] [id number] 15:44:15 Test Item Value Reference Range Interpretation Comments UA Protein (test code = UA Protein) 30 mg/dL [facility] AND [id number] 15:44:15 Test Item Value Reference Range Interpretation Comments UA Glucose (test code Negative (08/12/22 9:44 = UA Glucose) AM) [facility] AND [id number] 15:44:15 Test Item Value Reference Range Interpretation Comments UA Ketones (test code = >=80 *ABN*(08/12/22 UA Ketones) 9:44 AM) [facility] AND [id number] 15:44:15 Test Item Value Reference Range Interpretation Comments UA Bili (test code = Moderate *ABN*(08/12/22 UA Bili) 9:44 AM) [facility] AND [id number] 15:44:15 Test Item Value Reference Range Interpretation Comments UA Blood (test code = Negative (08/12/22 9:44 UA Blood) AM) [facility] AND [id number] 15:44:15 Test Item Value Reference Range Interpretation Comments UA Urobilinogen (test code = UA 4.0 0.1-1.0 Urobilinogen) [facility] AND [id number] 15:44:15 Test Item Value Reference Range Interpretation Comments UA Nitrite (test code Negative (08/12/22 9:44 = UA Nitrite) AM) [facility] AND [id number] 15:44:15 Test Item Value Reference Range Interpretation Comments UA Leuk Est (test code Small *ABN*(08/12/22 = UA Leuk Est) 9:44 AM) [facility] AND [id number] 15:44:15 Test Item Value Reference Range Interpretation Comments UA pH (test code = UA pH) 6.0 1 5.0-8.0 [facility] AND [id number] 15:44:15 Test Item Value Reference Range Interpretation Comments UA Protein (test code = UA Protein) 30 mg/dL [facility] AND [id number] 15:44:15 Test Item Value Reference Range Interpretation Comments UA Glucose (test code Negative (08/12/22 9:44 = UA Glucose) AM) [facility] [id number] 15:44:15 Test Item Value Reference Range Interpretation Comments UA Ketones (test code = >=80 *ABN*(08/12/22 UA Ketones) 9:44 AM) [facility] [id number] 15:44:15 Test Item Value Reference Range Interpretation Comments UA Bili (test code = Moderate *ABN*(08/12/22 UA Bili) 9:44 AM) [facility] [id number] 15:44:15 Test Item Value Reference Range Interpretation Comments U Preg (test code = U Positive *ABN*(08/12/22 Preg) 9:44 AM) [facility] [id number] 15:44:15 Test Item Value Reference Range Interpretation Comments UA Sq Epi (test code = UA Sq Epi) Many /LPF [facility] [id number] 15:44:15 Test Item Value Reference Range Interpretation Comments UA WBC (test code = 23 See_Comment [Automa jose r message] The UA WBC) system which ge nerated this result transmit jose r reference range : <=5. The reference range was not used to interpr et this result as jerrod l/abnormal. [facility] [id number] 15:44:15 Test Item Value Reference Range Interpretation Comments UA RBC (test code = 6 See_Comment [Automa jose r message] The UA RBC) system which ge nerated this result transmit jose r reference range : <=2. The reference range was not used to interpr et this result as jerrod l/abnormal. [facility] [id number] 15:44:15 Test Item Value Reference Range Interpretation Comments UA Blood (test code = Negative (08/12/22 9:44 UA Blood) AM) [facility] [id number] 15:44:15 Test Item Value Reference Range Interpretation Comments UA Bacteria (test code = UA Occasional /HPF Bacteria) [facility] [id number] 15:44:15 Test Item Value Reference Range Interpretation Comments UA Mucus (test code = UA Mucus) Many /LPF [facility] [id number] 15:44:15 Test Item Value Reference Range Interpretation Comments UA Color (test code = Yellow *NA*(08/12/22 UA Color) 9:44 AM) [facility] [id number] 15:44:15 Test Item Value Reference Range Interpretation Comments UA Turbidity (test code = Clear (08/12/22 9:44 UA Turbidity) AM) [facility] AND [id number] 15:44:15 Test Item Value Reference Range Interpretation Comments UA Spec Grav (test >=1.030 *ABN*(08/12/22 code = UA Spec Grav) 9:44 AM) [facility] [id number] 15:44:15 Test Item Value Reference Range Interpretation Comments UA pH (test code = UA pH) 6.0 1 5.0-8.0 [facility] AND [id number] 15:44:15 Test Item Value Reference Range Interpretation Comments UA Protein (test code = UA Protein) 30 mg/dL [facility] AND [id number] 15:44:15 Test Item Value Reference Range Interpretation Comments UA Glucose (test code Negative (08/12/22 9:44 = UA Glucose) AM) [facility] AND [id number] 15:44:15 Test Item Value Reference Range Interpretation Comments UA Ketones (test code = >=80 *ABN*(08/12/22 UA Ketones) 9:44 AM) [facility] AND [id number] 15:44:15 Test Item Value Reference Range Interpretation Comments UA Bili (test code = Moderate *ABN*(08/12/22 UA Bili) 9:44 AM) [facility] AND [id number] 15:44:15 Test Item Value Reference Range Interpretation Comments UA Urobilinogen (test code = UA 4.0 0.1-1.0 Urobilinogen) [facility] AND [id number] 15:44:15 Test Item Value Reference Range Interpretation Comments UA Blood (test code = Negative (08/12/22 9:44 UA Blood) AM) [facility] [id number] 15:44:15 Test Item Value Reference Range Interpretation Comments UA Urobilinogen (test code = UA 4.0 0.1-1.0 Urobilinogen) [facility] [id number] 15:44:15 Test Item Value Reference Range Interpretation Comments UA Nitrite (test code Negative (08/12/22 9:44 = UA Nitrite) AM) [facility] [id number] 15:44:15 Test Item Value Reference Range Interpretation Comments UA Leuk Est (test code Small *ABN*(08/12/22 = UA Leuk Est) 9:44 AM) [facility] [id number] 15:44:15 Test Item Value Reference Range Interpretation Comments UA Nitrite (test code Negative (08/12/22 9:44 = UA Nitrite) AM) [facility] [id number] 15:44:15 Test Item Value Reference Range Interpretation Comments UA Leuk Est (test code Small *ABN*(08/12/22 = UA Leuk Est) 9:44 AM) [facility] [id number] 15:44:15 Test Item Value Reference Range Interpretation Comments U Preg (test code = U Positive *ABN*(08/12/22 Preg) 9:44 AM) [facility] [id number] 15:44:15 Test Item Value Reference Range Interpretation Comments UA Sq Epi (test code = UA Sq Epi) Many /LPF [facility] [id number] 15:44:15 Test Item Value Reference Range Interpretation Comments UA WBC (test code = 23 See_Comment [Automa jose r message] The UA WBC) system which ge nerated this result transmit jose r reference range : <=5. The reference range was not used to interpr et this result as jerrod l/abnormal. [facility] [id number] 15:44:15 Test Item Value Reference Range Interpretation Comments UA RBC (test code = 6 See_Comment [Automa jose r message] The UA RBC) system which ge nerated this result transmit jose r reference range : <=2. The reference range was not used to interpr et this result as jerrod l/abnormal. [facility] [id number] 15:44:15 Test Item Value Reference Range Interpretation Comments UA Bacteria (test code = UA Occasional /HPF Bacteria) [facility] [id number] 15:44:15 Test Item Value Reference Range Interpretation Comments UA Mucus (test code = UA Mucus) Many /LPF [facility] [id number] 15:44:15 Test Item Value Reference Range Interpretation Comments UA Color (test code = Yellow *NA*(08/12/22 UA Color) 9:44 AM) [facility] [id number] 15:44:15 Test Item Value Reference Range Interpretation Comments UA Turbidity (test code = Clear (08/12/22 9:44 UA Turbidity) AM) [facility] [id number] 15:44:15 Test Item Value Reference Range Interpretation Comments UA Spec Grav (test >=1.030 *ABN*(08/12/22 code = UA Spec Grav) 9:44 AM) [facility] AND [id number] 15:44:15 Test Item Value Reference Range Interpretation Comments UA pH (test code = UA pH) 6.0 1 5.0-8.0 [facility] AND [id number] 15:44:15 Test Item Value Reference Range Interpretation Comments UA Protein (test code = UA Protein) 30 mg/dL [facility] AND [id number] 15:44:15 Test Item Value Reference Range Interpretation Comments UA Glucose (test code Negative (08/12/22 9:44 = UA Glucose) AM) [id number] 15:44:15 Test Item Value Reference Range Interpretation Comments U Preg (test code = U Positive *ABN*(08/12/22 Preg) 9:44 AM) [facility] [id number] 15:44:15 Test Item Value Reference Range Interpretation Comments UA Sq Epi (test code = UA Sq Epi) Many /LPF [facility] AND [id number] 15:44:15 Test Item Value Reference Range Interpretation Comments UA WBC (test code = 23 See_Comment [Automa jose r message] The UA WBC) system which ge nerated this result transmit jose r reference range : <=5. The reference range was not used to interpr et this result as jerrod l/abnormal. [facility] AND [id number] 15:44:15 Test Item Value Reference Range Interpretation Comments UA RBC (test code = 6 See_Comment [Automa jose r message] The UA RBC) system which ge nerated this result transmit jose r reference range : <=2. The reference range was not used to interpr et this result as jerrod l/abnormal. [facility] AND [id number] 15:44:15 Test Item Value Reference Range Interpretation Comments UA Bacteria (test code = UA Occasional /HPF Bacteria) [facility] AND [id number] 15:44:15 Test Item Value Reference Range Interpretation Comments UA Mucus (test code = UA Mucus) Many /LPF [facility] AND [id number] 15:44:15 Test Item Value Reference Range Interpretation Comments UA Color (test code = Yellow *NA*(08/12/22 UA Color) 9:44 AM) [facility] AND [id number] 15:44:15 Test Item Value Reference Range Interpretation Comments UA Turbidity (test code = Clear (08/12/22 9:44 UA Turbidity) AM) [facility] AND [id number] 15:44:15 Test Item Value Reference Range Interpretation Comments UA Spec Grav (test >=1.030 *ABN*(08/12/22 code = UA Spec Grav) 9:44 AM) [facility] AND [id number] 15:44:15 Test Item Value Reference Range Interpretation Comments UA pH (test code = UA pH) 6.0 1 5.0-8.0 [facility] AND [id number] 15:44:15 Test Item Value Reference Range Interpretation Comments UA Protein (test code = UA Protein) 30 mg/dL [facility] AND [id number] 15:44:15 Test Item Value Reference Range Interpretation Comments UA Glucose (test code Negative (08/12/22 9:44 = UA Glucose) AM) [facility] AND [id number] 15:44:15 Test Item Value Reference Range Interpretation Comments UA Ketones (test code = >=80 *ABN*(08/12/22 UA Ketones) 9:44 AM) [facility] AND [id number] 15:44:15 Test Item Value Reference Range Interpretation Comments UA Bili (test code = Moderate *ABN*(08/12/22 UA Bili) 9:44 AM) [facility] AND [id number] 15:44:15 Test Item Value Reference Range Interpretation Comments UA Blood (test code = Negative (08/12/22 9:44 UA Blood) AM) [facility] AND [id number] 15:44:15 Test Item Value Reference Range Interpretation Comments UA Urobilinogen (test code = UA 4.0 0.1-1.0 Urobilinogen) [facility] AND [id number] 15:44:15 Test Item Value Reference Range Interpretation Comments UA Nitrite (test code Negative (08/12/22 9:44 = UA Nitrite) AM) [facility] AND [id number] 15:44:15 Test Item Value Reference Range Interpretation Comments UA Leuk Est (test code Small *ABN*(08/12/22 = UA Leuk Est) 9:44 AM) [id number] 15:42:00 Test Item Value Reference Range Interpretation Comments Glucose Lvl (test code = Glucose Lvl) 86 70-99 [facility] C[id number] 15:42:00 Test Item Value Reference Range Interpretation Comments BUN (test code = BUN) 7 7-22 [facility] [id number] 15:42:00 Test Item Value Reference Range Interpretation Comments Creatinine Lvl (test code = Creatinine 0.50 0.50-1.40 Lvl) [facility] C[id number] 15:42:00 Test Item Value Reference Range Interpretation Comments Sodium Lvl (test code = Sodium Lvl) 137 135-145 [facility] [id number] 15:42:00 Test Item Value Reference Range Interpretation Comments Potassium Lvl (test code = Potassium 3.4 3.5-5.1 Lvl) [facility] CypressBojgxbbOHLPXJFJG2195-83-25 15:42:00 Test Item Value Reference Range Interpretation Comments Chloride Lvl (test code = Chloride Lvl) 103 95-109 [facility] Cypr[id number] 15:42:00 Test Item Value Reference Range Interpretation Comments CO2 (test code = CO2) 24 24-32 [facility] C[id number] 15:42:00 Test Item Value Reference Range Interpretation Comments Calcium Lvl (test code = Calcium Lvl) 9.6 8.5-10.5 [facility] [facility]OscszfhPJJNUTUDV1119-82-94 15:42:00 Test Item Value Reference Range Interpretation Comments AGAP (test code = AGAP) 13.4 10.0-20.0 [facility]ressKvlzebrLSVPGWUIP1188-67-09 15:42:00 Test Item Value Reference Range Interpretation Comments eGFR (test code = eGFR) 136 [facility]ressQaakpvkCMNPQYQNO6026-38-51 15:42:00 Test Item Value Reference Range Interpretation Comments Total Protein (test code = Total 7.9 6.4-8.4 Protein) [facility]ressMvxsabrUVQAGKKRL6093-27-60 15:42:00 Test Item Value Reference Range Interpretation Comments Albumin Lvl (test code = Albumin Lvl) 3.8 3.5-5.0 [facility]ressXedrfqhBERQDMGAM1737-86-42 15:42:00 Test Item Value Reference Range Interpretation Comments ALANINE AMINOTRANSFERASE 48 See_Comment [A utomated message] (test code = ALANINE The sys tem which AMINOTRANSFERASE) generated this result transmitted ref erence range: <=65. Th e reference range was not used to int erpret this result as normal/abnormal . [facility]ressPscmppiPWYBRTSLH5461-55-32 15:42:00 Test Item Value Reference Range Interpretation Comments AST (test code = AST) 19 See_Comment [Auto mated message] The system which ge nerated this result transmit jose r reference range : <=37. The reference range was not used to interpr et this result as jerrod l/abnormal. [facility]ressSzjvbpqVCKTWPDZH2681-70-55 15:42:00 Test Item Value Reference Range Interpretation Comments Alk Phos (test code = Alk Phos) 79 39-136 [facility]ressAbditkxGPUNVGDYA8611-98-09 15:42:00 Test Item Value Reference Range Interpretation Comments Bili Total (test code = Bili Total) 1.2 0.2-1.3 [facility]ressUbsebbeOVPQPXVUO5953-21-30 15:42:00 Test Item Value Reference Range Interpretation Comments Bili Direct (test code 0.4 See_Comment [Aut omated message] The = Bili Direct) system which generated this result tra nsmitted reference range : <=0.3. The reference r belen was not used to int erpret this result as jerrod l/abnormal. [facility] CypressZkauuykXATYQNLIA6223-23-54 15:42:00 Test Item Value Reference Range Interpretation Comments Bili Indirect (test 0.8 See_Comment [Automa jose r message] The code = Bili Indirect) system which generated this result tra nsmitted reference range : <=1.0. The reference r belen was not used to int erpret this result as normal/abnormal . [facility]ressWojmndhEBNEAWUUB2377-68-42 15:42:00 Test Item Value Reference Range Interpretation Comments Globulin (test code = Globulin) 4.1 2.7-4.2 [place] 052653-01-10 15:42:00 Test Item Value Reference Range Interpretation Comments A/G Ratio (test code = A/G Ratio) 0.9 1 0.7-1.6 [facility]ressUqncasjKYLMQNMUO5086-07-95 15:42:00 Test Item Value Reference Range Interpretation Comments Lipase Lvl (test code = Lipase Lvl) 57 73-393 [facility]entonSefpwakFTRFZGSZPF5575-16-33 15:42:00 Test Item Value Reference Range Interpretation Comments WBC X 10x3 (test code = WBC X 10x3) 12.5 3.7-10.4 [facility] DentonHczuxlaZLPDGZEKGQ1822-60-65 15:42:00 Test Item Value Reference Range Interpretation Comments RBC X 10x6 (test code = RBC X 10x6) 4.56 4.20-5.40 [facility]UPWWJTZCFD4990-[facility]-55 15:42:00 Test Item Value Reference Range Interpretation Comments Hgb (test code = Hgb) 13.4 12.0-16.0 [place] 090223-01-10 15:42:00 Test Item Value Reference Range Interpretation Comments Hct (test code = Hct) 39.5 36.0-48.0 [facility]entonKfkkwsiRMFBNSPJLM1360-46-99 15:42:00 Test Item Value Reference Range Interpretation Comments MCV (test code = MCV) 86.6 80.0-98.0 [facility] HospitalIocjmvdESGUZIUXXZ1801-77-20 15:42:00 Test Item Value Reference Range Interpretation Comments MCH (test code = MCH) 29.5 pg 27.0-31.0 [facility] DentonAydczvgVHZGSPUSNW9215-26-05 15:42:00 Test Item Value Reference Range Interpretation Comments MCHC (test code = MCHC) 34.0 32.0-36.0 [facility] HospitalWgmbkmzZYSXAHQYBU5481-81-03 15:42:00 Test Item Value Reference Range Interpretation Comments RDW (test code = RDW) 13.4 11.5-14.5 [place] 090223-01-10 15:42:00 Test Item Value Reference Range Interpretation Comments Platelet (test code = Platelet) 235 133-450 [place] 090223-01-10 15:42:00 Test Item Value Reference Range Interpretation Comments MPV (test code = MPV) 8.7 7.4-10.4 [place] 090223-01-10 15:42:00 Test Item Value Reference Range Interpretation Comments Segs (test code = Segs) 84.7 45.0-75.0 [place] [address]-01-10 15:42:00 Test Item Value Reference Range Interpretation Comments Lymphocytes (test code = Lymphocytes) 11.0 20.0-40.0 [place] [address]-01-10 15:42:00 Test Item Value Reference Range Interpretation Comments Monocytes (test code = Monocytes) 3.5 2.0-12.0 [place] 090223-01-10 15:42:00 Test Item Value Reference Range Interpretation Comments Eosinophils (test code = 0.3 See_Comment [A utomated message] The Eosinophils) system which ge nerated this result tra nsmitted reference range : <=4.0. The reference r belen was not used to int erpret this result as normal/abnormal . [facility] DentonBqtouojKPOINHDIMK5728-76-11 15:42:00 Test Item Value Reference Range Interpretation Comments Basophils (test code = 0.5 See_Comment [Aut omated message] The Basophils) system which ge nerated this result tra nsmitted reference range : <=1.0. The reference r belen was not used to int erpret this result as normal/abnormal . [facility] DentonIjogmqpDPJDUBRDUU1157-63-33 15:42:00 Test Item Value Reference Range Interpretation Comments Neutrophils # (test code = Neutrophils 10.6 1.5-8.1 #) [place] [address]-01-10 15:42:00 Test Item Value Reference Range Interpretation Comments Lymphocytes # (test code = Lymphocytes 1.4 1.0-5.5 #) [place] 090223-01-10 15:42:00 Test Item Value Reference Range Interpretation Comments Monocytes # (test code 0.4 See_Comment [Aut omated message] The = Monocytes #) system which generated this result tra nsmitted reference range : <=0.8. The reference r belen was not used to int erpret this result as normal/abnormal . [facility] DentonFjofnawULDYRJRGPS8594-33-62 15:42:00 Test Item Value Reference Range Interpretation Comments Basophils # (test code 0.1 See_Comment [Aut omated message] The = Basophils #) system which generated this result tra nsmitted reference range : <=0.2. The reference r belen was not used to int erpret this result as normal/abnormal . [facility]ressVqugzinRSBFADJWS0592-73-43 15:42:00 Test Item Value Reference Range Interpretation Comments Glucose Lvl (test code = Glucose Lvl) 86 70-99 [facility]ressErffijxUPLJTTYNS1638-73-46 15:42:00 Test Item Value Reference Range Interpretation Comments BUN (test code = BUN) 7 7-22 [facility]ressXitbrgzNSCTFLYRY2678-86-87 15:42:00 Test Item Value Reference Range Interpretation Comments Creatinine Lvl (test code = Creatinine 0.50 0.50-1.40 Lvl) [facility]ressNwrjkxlNEJRWSOBF6460-78-68 15:42:00 Test Item Value Reference Range Interpretation Comments Sodium Lvl (test code = Sodium Lvl) 137 135-145 [facility]ressPajcgxaVDRSANPGN0970-54-10 15:42:00 Test Item Value Reference Range Interpretation Comments Potassium Lvl (test code = Potassium 3.4 3.5-5.1 Lvl) [facility]ressZzddufyPQIJAOYIR9147-13-77 15:42:00 Test Item Value Reference Range Interpretation Comments Chloride Lvl (test code = Chloride Lvl) 103 95-109 [facility]ressHyqzeueVJENRNNJE3660-65-62 15:42:00 Test Item Value Reference Range Interpretation Comments CO2 (test code = CO2) 24 24-32 [facility]ressOoedgkoSDDAZKTTK2189-78-68 15:42:00 Test Item Value Reference Range Interpretation Comments Calcium Lvl (test code = Calcium Lvl) 9.6 8.5-10.5 [facility]ressKmvbxezDWDVJPKBX0473-31-52 15:42:00 Test Item Value Reference Range Interpretation Comments AGAP (test code = AGAP) 13.4 10.0-20.0 [facility]ressIqcdztmNJMNINOQG1843-29-49 15:42:00 Test Item Value Reference Range Interpretation Comments eGFR (test code = eGFR) 136 [facility]ressDekkqidNAJRZWCCH1623-99-90 15:42:00 Test Item Value Reference Range Interpretation Comments Total Protein (test code = Total 7.9 6.4-8.4 Protein) [facility]ressRsygaddERYDYJUJK7046-14-91 15:42:00 Test Item Value Reference Range Interpretation Comments Albumin Lvl (test code = Albumin Lvl) 3.8 3.5-5.0 [facility]ressHwrcicjQXMFBQMVK2325-53-70 15:42:00 Test Item Value Reference Range Interpretation Comments ALANINE AMINOTRANSFERASE 48 See_Comment [A utomated message] (test code = ALANINE The sys tem which AMINOTRANSFERASE) generated this result transmitted ref erence range: <=65. Th e reference range was not used to int erpret this result as normal/abnormal . [facility]ressPdxrurxCPJPHHIPA8735-36-82 15:42:00 Test Item Value Reference Range Interpretation Comments AST (test code = AST) 19 See_Comment [Auto mated message] The system which ge nerated this result transmit jose r reference range : <=37. The reference range was not used to interpr et this result as jerrod l/abnormal. [facility]ressLctfmhxEIKZKEEAV4156-28-51 15:42:00 Test Item Value Reference Range Interpretation Comments Alk Phos (test code = Alk Phos) 79 39-136 [facility]ressQquakeeUMEMEYYLQ3750-21-11 15:42:00 Test Item Value Reference Range Interpretation Comments Bili Total (test code = Bili Total) 1.2 0.2-1.3 [facility]ressYtgdradFQVSXSGEM3644-66-22 15:42:00 Test Item Value Reference Range Interpretation Comments Bili Direct (test code 0.4 See_Comment [Aut omated message] The = Bili Direct) system which generated this result tra nsmitted reference range : <=0.3. The reference r belen was not used to int erpret this result as jerrod l/abnormal. [facility]ressHoazituLDDRWMYRY1564-03-47 15:42:00 Test Item Value Reference Range Interpretation Comments Bili Indirect (test 0.8 See_Comment [Automa jose r message] The code = Bili Indirect) system which generated this result tra nsmitted reference range : <=1.0. The reference r belen was not used to int erpret this result as normal/abnormal . [facility]ressQjzczowBKRZCZKZH2131-96-91 15:42:00 Test Item Value Reference Range Interpretation Comments Globulin (test code = Globulin) 4.1 2.7-4.2 [facility]ressPxnbfcaJLGBDEMPP4379-23-25 15:42:00 Test Item Value Reference Range Interpretation Comments A/G Ratio (test code = A/G Ratio) 0.9 1 0.7-1.6 [facility]ressWkrorikBFHKSPCKQ3842-50-52 15:42:00 Test Item Value Reference Range Interpretation Comments Lipase Lvl (test code = Lipase Lvl) 57 73-393 [facility] DentonVcyndneYATOLYEBQO8614-68-30 15:42:00 Test Item Value Reference Range Interpretation Comments WBC X 10x3 (test code = WBC X 10x3) 12.5 3.7-10.4 [facility] DentonAjpjqfpJZJVWIENPP5269-13-91 15:42:00 Test Item Value Reference Range Interpretation Comments RBC X 10x6 (test code = RBC X 10x6) 4.56 4.20-5.40 [facility] DentonMhgilnbPCSTBEMGXL2273-77-40 15:42:00 Test Item Value Reference Range Interpretation Comments Hgb (test code = Hgb) 13.4 12.0-16.0 [facility] DentonUpopbveRQCEUHGXQJ9839-28-39 15:42:00 Test Item Value Reference Range Interpretation Comments Hct (test code = Hct) 39.5 36.0-48.0 [facility] DentonAbkjfapQWUHFJKACJ4053-38-71 15:42:00 Test Item Value Reference Range Interpretation Comments MCV (test code = MCV) 86.6 80.0-98.0 [facility] DentonKsewgqzXCAFHYEMRE3430-33-13 15:42:00 Test Item Value Reference Range Interpretation Comments MCH (test code = MCH) 29.5 pg 27.0-31.0 [facility] DentonDrddjkvHYJRRABTYY9594-36-73 15:42:00 Test Item Value Reference Range Interpretation Comments MCHC (test code = MCHC) 34.0 32.0-36.0 [facility] DentonNixlasfLLOPIRGOBV4269-03-12 15:42:00 Test Item Value Reference Range Interpretation Comments RDW (test code = RDW) 13.4 11.5-14.5 [facility] DentonSgcmpglTRPTCZSLEV8388-35-50 15:42:00 Test Item Value Reference Range Interpretation Comments Platelet (test code = Platelet) 235 133-450 [place] 090223-01-10 15:42:00 Test Item Value Reference Range Interpretation Comments MPV (test code = MPV) 8.7 7.4-10.4 [place] 090223-01-10 15:42:00 Test Item Value Reference Range Interpretation Comments Segs (test code = Segs) 84.7 45.0-75.0 [place] 090223-01-10 15:42:00 Test Item Value Reference Range Interpretation Comments Lymphocytes (test code = Lymphocytes) 11.0 20.0-40.0 [place] 090223-01-10 15:42:00 Test Item Value Reference Range Interpretation Comments Monocytes (test code = Monocytes) 3.5 2.0-12.0 [place] [address]-01-10 15:42:00 Test Item Value Reference Range Interpretation Comments Eosinophils (test code = 0.3 See_Comment [A utomated message] The Eosinophils) system which ge nerated this result tra nsmitted reference range : <=4.0. The reference r belen was not used to int erpret this result as normal/abnormal . [facility] DentonUjmopwkWUGGPCLSHC5578-56-94 15:42:00 Test Item Value Reference Range Interpretation Comments Basophils (test code = 0.5 See_Comment [Aut omated message] The Basophils) system which ge nerated this result tra nsmitted reference range : <=1.0. The reference r belen was not used to int erpret this result as normal/abnormal . [facility] DentonChydyxdWTCITNGJBU1776-96-70 15:42:00 Test Item Value Reference Range Interpretation Comments Neutrophils # (test code = Neutrophils 10.6 1.5-8.1 #) [place] 090223-01-10 15:42:00 Test Item Value Reference Range Interpretation Comments Lymphocytes # (test code = Lymphocytes 1.4 1.0-5.5 #) [place] [address]-01-10 15:42:00 Test Item Value Reference Range Interpretation Comments Monocytes # (test code 0.4 See_Comment [Aut omated message] The = Monocytes #) system which generated this result tra nsmitted reference range : <=0.8. The reference r belen was not used to int erpret this result as normal/abnormal . [place] 090223-01-10 15:42:00 Test Item Value Reference Range Interpretation Comments Basophils # (test code 0.1 See_Comment [Aut omated message] The = Basophils #) system which generated this result tra nsmitted reference range : <=0.2. The reference r belen was not used to int erpret this result as normal/abnormal . [facility]ressDougpraOYGANBXXE9972-22-11 15:42:00 Test Item Value Reference Range Interpretation Comments Glucose Lvl (test code = Glucose Lvl) 86 70-99 [facility]ressEbunbduODPFHNCQI7889-50-41 15:42:00 Test Item Value Reference Range Interpretation Comments BUN (test code = BUN) 7 7-22 [facility]ressXnuwecqMSWUAQDSY8174-52-15 15:42:00 Test Item Value Reference Range Interpretation Comments Creatinine Lvl (test code = Creatinine 0.50 0.50-1.40 Lvl) [facility]ressIthffpcBQIECRMHG4227-40-31 15:42:00 Test Item Value Reference Range Interpretation Comments Sodium Lvl (test code = Sodium Lvl) 137 135-145 [facility] CypressTrjnbxzGONDZHUKG5042-81-77 15:42:00 Test Item Value Reference Range Interpretation Comments Potassium Lvl (test code = Potassium 3.4 3.5-5.1 Lvl) [facility]ressQojzgbmBICKYBVEV2122-76-11 15:42:00 Test Item Value Reference Range Interpretation Comments Chloride Lvl (test code = Chloride Lvl) 103 95-109 [facility]ressCmtlpscFLEQXTTXP4953-32-06 15:42:00 Test Item Value Reference Range Interpretation Comments CO2 (test code = CO2) 24 24-32 [facility] CypressTkalcbyHAYATGQQX1903-61-27 15:42:00 Test Item Value Reference Range Interpretation Comments Calcium Lvl (test code = Calcium Lvl) 9.6 8.5-10.5 [facility]ressPjlsyugNEJXFWYNV2185-23-62 15:42:00 Test Item Value Reference Range Interpretation Comments AGAP (test code = AGAP) 13.4 10.0-20.0 [facility] CypressZeassxiPVGSAZRLX8119-31-69 15:42:00 Test Item Value Reference Range Interpretation Comments eGFR (test code = eGFR) 136 [facility]ressThmqbuoGDCLVNZWP2975-83-83 15:42:00 Test Item Value Reference Range Interpretation Comments Total Protein (test code = Total 7.9 6.4-8.4 Protein) [facility]ressPhmubsiMXEFYXIJF6156-36-82 15:42:00 Test Item Value Reference Range Interpretation Comments Albumin Lvl (test code = Albumin Lvl) 3.8 3.5-5.0 [facility]ressQxavkqgHLPXSPCCE3218-57-09 15:42:00 Test Item Value Reference Range Interpretation Comments ALANINE AMINOTRANSFERASE 48 See_Comment [A utomated message] (test code = ALANINE The sys tem which AMINOTRANSFERASE) generated this result transmitted ref erence range: <=65. Th e reference range was not used to int erpret this result as normal/abnormal . [facility]WsifmybBZYJIEVNF0933-88-93 15:42:00 Test Item Value Reference Range Interpretation Comments AST (test code = AST) 19 See_Comment [Auto mated message] The system which ge nerated this result transmit jose r reference range : <=37. The reference range was not used to interpr et this result as jerrod l/abnormal. [facility] CenterVpzmikjRARVXFJHM1397-02-04 15:42:00 Test Item Value Reference Range Interpretation Comments Alk Phos (test code = Alk Phos) 79 39-136 [facility]WshbnzqHGGZDJVUG3083-52-06 15:42:00 Test Item Value Reference Range Interpretation Comments Bili Total (test code = Bili Total) 1.2 0.2-1.3 [facility] CypressKdenkkjOELWKRTJV4429-85-04 15:42:00 Test Item Value Reference Range Interpretation Comments Bili Direct (test code 0.4 See_Comment [Aut omated message] The = Bili Direct) system which generated this result tra nsmitted reference range : <=0.3. The reference r belen was not used to int erpret this result as jerrod l/abnormal. [facility] CenterGmoluopXWJWLKIFM1132-40-42 15:42:00 Test Item Value Reference Range Interpretation Comments Bili Indirect (test 0.8 See_Comment [Automa jose r message] The code = Bili Indirect) system which generated this result tra nsmitted reference range : <=1.0. The reference r belen was not used to int erpret this result as normal/abnormal . [facility] CenterBrqoibfDZKEPCKYE5187-34-48 15:42:00 Test Item Value Reference Range Interpretation Comments Globulin (test code = Globulin) 4.1 2.7-4.2 [facility] DallasVirymktQMFEPCGLE1632-10-97 15:42:00 Test Item Value Reference Range Interpretation Comments A/G Ratio (test code = A/G Ratio) 0.9 1 0.7-1.6 [facility]ressSxzvvfiDRGFMMKMB4658-82-27 15:42:00 Test Item Value Reference Range Interpretation Comments Lipase Lvl (test code = Lipase Lvl) 57 73-393 [facility] DentonLafnzavGHZHPNPVXJ8186-55-32 15:42:00 Test Item Value Reference Range Interpretation Comments WBC X 10x3 (test code = WBC X 10x3) 12.5 3.7-10.4 [facility]BswpduqDGVOAZAHEM9493-29-91 15:42:00 Test Item Value Reference Range Interpretation Comments RBC X 10x6 (test code = RBC X 10x6) 4.56 4.20-5.40 [facility] DentonBysbiyjRBFRMVTUCL5011-98-81 15:42:00 Test Item Value Reference Range Interpretation Comments Hgb (test code = Hgb) 13.4 12.0-16.0 [facility] DentonWijuytlQYVHUERRQJ6490-53-10 15:42:00 Test Item Value Reference Range Interpretation Comments Hct (test code = Hct) 39.5 36.0-48.0 [facility] HospitalJjqpwogOEISSTKAIF5789-98-38 15:42:00 Test Item Value Reference Range Interpretation Comments MCV (test code = MCV) 86.6 80.0-98.0 [facility] HospitalCotmhshSRRUXYYTDH9550-69-09 15:42:00 Test Item Value Reference Range Interpretation Comments MCH (test code = MCH) 29.5 pg 27.0-31.0 [facility] DentonRegjhnrBGCDNTWBEC7769-41-86 15:42:00 Test Item Value Reference Range Interpretation Comments MCHC (test code = MCHC) 34.0 32.0-36.0 [facility] DentonAmulxwiIVFCAZJZUH4705-03-06 15:42:00 Test Item Value Reference Range Interpretation Comments RDW (test code = RDW) 13.4 11.5-14.5 [facility] DentonJohbmctQRGZMNMULC5304-66-71 15:42:00 Test Item Value Reference Range Interpretation Comments Platelet (test code = Platelet) 235 133-450 [facility] DentonMrdietbJNZQFKKSRS5649-22-90 15:42:00 Test Item Value Reference Range Interpretation Comments MPV (test code = MPV) 8.7 7.4-10.4 [facility] DentonSamofcjKPGZXOKSWB0351-57-70 15:42:00 Test Item Value Reference Range Interpretation Comments Segs (test code = Segs) 84.7 45.0-75.0 [place] [address]-01-10 15:42:00 Test Item Value Reference Range Interpretation Comments Lymphocytes (test code = Lymphocytes) 11.0 20.0-40.0 [place] [address]-01-10 15:42:00 Test Item Value Reference Range Interpretation Comments Monocytes (test code = Monocytes) 3.5 2.0-12.0 [place] [address]-01-10 15:42:00 Test Item Value Reference Range Interpretation Comments Eosinophils (test code = 0.3 See_Comment [A utomated message] The Eosinophils) system which ge nerated this result tra nsmitted reference range : <=4.0. The reference r belen was not used to int erpret this result as normal/abnormal . [place] [address]-01-10 15:42:00 Test Item Value Reference Range Interpretation Comments Basophils (test code = 0.5 See_Comment [Aut omated message] The Basophils) system which ge nerated this result tra nsmitted reference range : <=1.0. The reference r belen was not used to int erpret this result as normal/abnormal . [place] 090223-01-10 15:42:00 Test Item Value Reference Range Interpretation Comments Neutrophils # (test code = Neutrophils 10.6 1.5-8.1 #) [place] [address]-01-10 15:42:00 Test Item Value Reference Range Interpretation Comments Lymphocytes # (test code = Lymphocytes 1.4 1.0-5.5 #) [place] [address]-01-10 15:42:00 Test Item Value Reference Range Interpretation Comments Monocytes # (test code 0.4 See_Comment [Aut omated message] The = Monocytes #) system which generated this result tra nsmitted reference range : <=0.8. The reference r belen was not used to int erpret this result as normal/abnormal . [place] 090223-01-10 15:42:00 Test Item Value Reference Range Interpretation Comments Basophils # (test code 0.1 See_Comment [Aut omated message] The = Basophils #) system which generated this result tra nsmitted reference range : <=0.2. The reference r belen was not used to int erpret this result as normal/abnormal . [facility]ressPufreaaJLJRJSXXZ7891-20-09 15:42:00 Test Item Value Reference Range Interpretation Comments Glucose Lvl (test code = Glucose Lvl) 86 70-99 [facility]ressOkdbmuyVJZYIPEZW7395-27-61 15:42:00 Test Item Value Reference Range Interpretation Comments BUN (test code = BUN) 7 7-22 [facility]ressVorfsilOTDIHTDQU5700-10-55 15:42:00 Test Item Value Reference Range Interpretation Comments Creatinine Lvl (test code = Creatinine 0.50 0.50-1.40 Lvl) [facility] CypressTbksjjqCHZPVRGGM2530-49-38 15:42:00 Test Item Value Reference Range Interpretation Comments Sodium Lvl (test code = Sodium Lvl) 137 135-145 [place] 052653-01-10 15:42:00 Test Item Value Reference Range Interpretation Comments Potassium Lvl (test code = Potassium 3.4 3.5-5.1 Lvl) [facility]ressHaovkrcYTSQFTQBZ5260-73-48 15:42:00 Test Item Value Reference Range Interpretation Comments Chloride Lvl (test code = Chloride Lvl) 103 95-109 [facility]ressPqrvzhtRRBSZNFWB3674-34-15 15:42:00 Test Item Value Reference Range Interpretation Comments CO2 (test code = CO2) 24 24-32 [facility] CypressIykjxdbTCYSMSOYN3207-19-38 15:42:00 Test Item Value Reference Range Interpretation Comments Calcium Lvl (test code = Calcium Lvl) 9.6 8.5-10.5 [facility] CypressUqjbuhrWSKFKDZQY9030-97-04 15:42:00 Test Item Value Reference Range Interpretation Comments AGAP (test code = AGAP) 13.4 10.0-20.0 [facility] CypressQwjytsoVHTHHLZCZ4649-36-84 15:42:00 Test Item Value Reference Range Interpretation Comments eGFR (test code = eGFR) 136 [facility] CypressOgszobfDRBCHYJYC8497-26-46 15:42:00 Test Item Value Reference Range Interpretation Comments Total Protein (test code = Total 7.9 6.4-8.4 Protein) [facility] CypressNnvxjcbBTUESMAPM0758-84-13 15:42:00 Test Item Value Reference Range Interpretation Comments Albumin Lvl (test code = Albumin Lvl) 3.8 3.5-5.0 [facility] CypressCrxdxdkEFVJPXFAD7197-61-31 15:42:00 Test Item Value Reference Range Interpretation Comments ALANINE AMINOTRANSFERASE 48 See_Comment [A utomated message] (test code = ALANINE The sys tem which AMINOTRANSFERASE) generated this result transmitted ref erence range: <=65. Th e reference range was not used to int erpret this result as normal/abnormal . [facility] SyjqqkhHUOKCVWJH3751-91-80 15:42:00 Test Item Value Reference Range Interpretation Comments AST (test code = AST) 19 See_Comment [Auto mated message] The system which ge nerated this result transmit jose r reference range : <=37. The reference range was not used to interpr et this result as jerrod l/abnormal. [facility] WscydxiUWKJPQTYC5540-27-52 15:42:00 Test Item Value Reference Range Interpretation Comments Alk Phos (test code = Alk Phos) 79 39-136 [facility]MckvxfvMVAMINZMY6861-75-73 15:42:00 Test Item Value Reference Range Interpretation Comments Bili Total (test code = Bili Total) 1.2 0.2-1.3 [facility] CenterLzpcjjmBGHPPGZYO5842-21-08 15:42:00 Test Item Value Reference Range Interpretation Comments Bili Direct (test code 0.4 See_Comment [Aut omated message] The = Bili Direct) system which generated this result tra nsmitted reference range : <=0.3. The reference r belen was not used to int erpret this result as jerrod l/abnormal. [facility] DcsoiofBHHTKVSWS1948-94-44 15:42:00 Test Item Value Reference Range Interpretation Comments Bili Indirect (test 0.8 See_Comment [Automa jose r message] The code = Bili Indirect) system which generated this result tra nsmitted reference range : <=1.0. The reference r belen was not used to int erpret this result as normal/abnormal . [facility] NnrqbztGBVLDDKRC8487-73-54 15:42:00 Test Item Value Reference Range Interpretation Comments Globulin (test code = Globulin) 4.1 2.7-4.2 [facility] CenterQvmeodrWWQUZGUCN1683-59-13 15:42:00 Test Item Value Reference Range Interpretation Comments A/G Ratio (test code = A/G Ratio) 0.9 1 0.7-1.6 [facility] CenterUqgguggBWNTSJGWT9833-64-19 15:42:00 Test Item Value Reference Range Interpretation Comments Lipase Lvl (test code = Lipase Lvl) 57 73-393 [facility]entonAkfeocdSXFROWYMLR2322-88-03 15:42:00 Test Item Value Reference Range Interpretation Comments WBC X 10x3 (test code = WBC X 10x3) 12.5 3.7-10.4 [facility]entonBtpzzmvRXLPJLSWIQ1544-67-56 15:42:00 Test Item Value Reference Range Interpretation Comments RBC X 10x6 (test code = RBC X 10x6) 4.56 4.20-5.40 [facility] DentonJvkfkbiEASNPWRTJU0689-36-93 15:42:00 Test Item Value Reference Range Interpretation Comments Hgb (test code = Hgb) 13.4 12.0-16.0 [facility]entonCgquhbjSEKQVQZNHN5999-23-25 15:42:00 Test Item Value Reference Range Interpretation Comments Hct (test code = Hct) 39.5 36.0-48.0 [facility] DentonKvealrfSFSBWUDEHC7245-68-24 15:42:00 Test Item Value Reference Range Interpretation Comments MCV (test code = MCV) 86.6 80.0-98.0 [facility] CypressRgwvefvGVYVDSIKO2772-56-14 15:42:00 Test Item Value Reference Range Interpretation Comments Glucose Lvl (test code = Glucose Lvl) 86 70-99 [facility] DentonUjrxhkcRZPVAAVHWZ1622-76-24 15:42:00 Test Item Value Reference Range Interpretation Comments MCH (test code = MCH) 29.5 pg 27.0-31.0 [facility] DentonQqlffivVWXWXUZXWL8702-53-46 15:42:00 Test Item Value Reference Range Interpretation Comments MCHC (test code = MCHC) 34.0 32.0-36.0 [facility] DentonYpghgagSVXGMGKMYC7371-46-63 15:42:00 Test Item Value Reference Range Interpretation Comments RDW (test code = RDW) 13.4 11.5-14.5 [facility] DentonEsgxgzzELMCMDLMZG9954-93-78 15:42:00 Test Item Value Reference Range Interpretation Comments Platelet (test code = Platelet) 235 133-450 [facility] DentonAqgffbpOAVEWBKAZU3764-18-37 15:42:00 Test Item Value Reference Range Interpretation Comments MPV (test code = MPV) 8.7 7.4-10.4 [facility] DentonGgosxsvCYQDXKXLMV4902-29-57 15:42:00 Test Item Value Reference Range Interpretation Comments Segs (test code = Segs) 84.7 45.0-75.0 [facility] DentonBacarhtCHECCIMLYP8227-18-77 15:42:00 Test Item Value Reference Range Interpretation Comments Lymphocytes (test code = Lymphocytes) 11.0 20.0-40.0 [facility] DentonDnipjnwTMWWNNXUZZ5368-82-48 15:42:00 Test Item Value Reference Range Interpretation Comments Monocytes (test code = Monocytes) 3.5 2.0-12.0 [facility] DentonHmcwkhuFMHIKNXKAF7902-01-59 15:42:00 Test Item Value Reference Range Interpretation Comments Eosinophils (test code = 0.3 See_Comment [A utomated message] The Eosinophils) system which ge nerated this result tra nsmitted reference range : <=4.0. The reference r belen was not used to int erpret this result as normal/abnormal . [facility] DentonFdnyentNMZDGZITME2275-87-86 15:42:00 Test Item Value Reference Range Interpretation Comments Basophils (test code = 0.5 See_Comment [Aut omated message] The Basophils) system which ge nerated this result tra nsmitted reference range : <=1.0. The reference r belen was not used to int erpret this result as normal/abnormal . [facility]ressVtdxeqaLJSKZUKLE8091-04-06 15:42:00 Test Item Value Reference Range Interpretation Comments BUN (test code = BUN) 7 7-22 [facility] DentonZltsttkRSWHHWSXGV0823-78-95 15:42:00 Test Item Value Reference Range Interpretation Comments Neutrophils # (test code = Neutrophils 10.6 1.5-8.1 #) [facility] DentonJziwmlzZHDEDKGMCG7946-11-37 15:42:00 Test Item Value Reference Range Interpretation Comments Lymphocytes # (test code = Lymphocytes 1.4 1.0-5.5 #) [facility] DentonBhbggwvIZTHPFOIJJ2678-26-66 15:42:00 Test Item Value Reference Range Interpretation Comments Monocytes # (test code 0.4 See_Comment [Aut omated message] The = Monocytes #) system which generated this result tra nsmitted reference range : <=0.8. The reference r belen was not used to int erpret this result as normal/abnormal . [facility] DentonOsfjlhoLOHDUUSHWB1183-89-74 15:42:00 Test Item Value Reference Range Interpretation Comments Basophils # (test code 0.1 See_Comment [Aut omated message] The = Basophils #) system which generated this result tra nsmitted reference range : <=0.2. The reference r belen was not used to int erpret this result as normal/abnormal . [facility]ressNdidjhdLIOGVFTEM6260-31-33 15:42:00 Test Item Value Reference Range Interpretation Comments Creatinine Lvl (test code = Creatinine 0.50 0.50-1.40 Lvl) [facility]ressYxgvfqjGMGWQXEKO4992-17-38 15:42:00 Test Item Value Reference Range Interpretation Comments Sodium Lvl (test code = Sodium Lvl) 137 135-145 [facility] CypressHjrawrrRLCVRETAI1712-34-53 15:42:00 Test Item Value Reference Range Interpretation Comments Potassium Lvl (test code = Potassium 3.4 3.5-5.1 Lvl) [facility]ressPesvhpwKLRAAOCFX7001-16-59 15:42:00 Test Item Value Reference Range Interpretation Comments Chloride Lvl (test code = Chloride Lvl) 103 95-109 [facility] CypressBdyjfdgRBUVVRPVY4389-57-64 15:42:00 Test Item Value Reference Range Interpretation Comments CO2 (test code = CO2) 24 24-32 [facility] CypressLzepkphOMTPIIEYW7343-00-64 15:42:00 Test Item Value Reference Range Interpretation Comments Calcium Lvl (test code = Calcium Lvl) 9.6 8.5-10.5 [facility] CypressReeusqrYHDSEAUOP3924-55-32 15:42:00 Test Item Value Reference Range Interpretation Comments AGAP (test code = AGAP) 13.4 10.0-20.0 [facility] CypressHequmxjWGGROPRRA1276-49-27 15:42:00 Test Item Value Reference Range Interpretation Comments eGFR (test code = eGFR) 136 [facility] CypressWzbezopFEURKTKEE3183-54-98 15:42:00 Test Item Value Reference Range Interpretation Comments Total Protein (test code = Total 7.9 6.4-8.4 Protein) [facility] CypressRzfbohfLCBOMOTMM1374-48-45 15:42:00 Test Item Value Reference Range Interpretation Comments Albumin Lvl (test code = Albumin Lvl) 3.8 3.5-5.0 [facility] CypressFxgkeufNEELRIJOA7892-71-89 15:42:00 Test Item Value Reference Range Interpretation Comments ALANINE AMINOTRANSFERASE 48 See_Comment [A utomated message] (test code = ALANINE The sys tem which AMINOTRANSFERASE) generated this result transmitted ref erence range: <=65. Th e reference range was not used to int erpret this result as normal/abnormal . [facility] GhvldlfWZUNMHAZN3987-02-08 15:42:00 Test Item Value Reference Range Interpretation Comments AST (test code = AST) 19 See_Comment [Auto mated message] The system which ge nerated this result transmit jose r reference range : <=37. The reference range was not used to interpr et this result as jerrod l/abnormal. [facility] CenterCxnwfdnDLOUMVNVC6277-29-72 15:42:00 Test Item Value Reference Range Interpretation Comments Alk Phos (test code = Alk Phos) 79 39-136 [facility] CenterOqxsqxbJKZMMNNBX6255-85-28 15:42:00 Test Item Value Reference Range Interpretation Comments Bili Total (test code = Bili Total) 1.2 0.2-1.3 [facility] CenterXglbvfwQVXZITTQW7325-38-12 15:42:00 Test Item Value Reference Range Interpretation Comments Bili Direct (test code 0.4 See_Comment [Aut omated message] The = Bili Direct) system which generated this result tra nsmitted reference range : <=0.3. The reference r belen was not used to int erpret this result as jerrod l/abnormal. [facility] CenterIoynvnvOOHHWMTKE4998-71-22 15:42:00 Test Item Value Reference Range Interpretation Comments Bili Indirect (test 0.8 See_Comment [Automa jose r message] The code = Bili Indirect) system which generated this result tra nsmitted reference range : <=1.0. The reference r belen was not used to int erpret this result as normal/abnormal . [facility] CenterCzfwhmwKBWYNJISW3287-98-63 15:42:00 Test Item Value Reference Range Interpretation Comments Globulin (test code = Globulin) 4.1 2.7-4.2 [facility] CenterSywvvvzJSLRANREE9563-00-04 15:42:00 Test Item Value Reference Range Interpretation Comments A/G Ratio (test code = A/G Ratio) 0.9 1 0.7-1.6 [facility] CenterWhyyhssHZXKLDDHG6145-42-69 15:42:00 Test Item Value Reference Range Interpretation Comments Lipase Lvl (test code = Lipase Lvl) 57 73-393 [facility] CenterPnuuzebVIKRRKNLGG7157-68-80 15:42:00 Test Item Value Reference Range Interpretation Comments WBC X 10x3 (test code = WBC X 10x3) 12.5 3.7-10.4 [facility]entonYyzjgfiTRVUATLRMB7981-54-38 15:42:00 Test Item Value Reference Range Interpretation Comments RBC X 10x6 (test code = RBC X 10x6) 4.56 4.20-5.40 [facility] DentonCeetzdkDXZNIJURCJ0336-86-48 15:42:00 Test Item Value Reference Range Interpretation Comments Hgb (test code = Hgb) 13.4 12.0-16.0 [facility] DentonKuxfhtvCBIRWEVHSK2695-94-79 15:42:00 Test Item Value Reference Range Interpretation Comments Hct (test code = Hct) 39.5 36.0-48.0 [facility] DentonYeyrjglSFLLSXCAXD0730-35-66 15:42:00 Test Item Value Reference Range Interpretation Comments MCV (test code = MCV) 86.6 80.0-98.0 [facility] DentonLzvvpjhAAQJPRMNGD3912-09-62 15:42:00 Test Item Value Reference Range Interpretation Comments MCH (test code = MCH) 29.5 pg 27.0-31.0 [facility] DentonHituybbMQCLDIJBXR7244-88-50 15:42:00 Test Item Value Reference Range Interpretation Comments MCHC (test code = MCHC) 34.0 32.0-36.0 [facility] DentonXpyywtnFSFOAKRLEJ3269-75-03 15:42:00 Test Item Value Reference Range Interpretation Comments RDW (test code = RDW) 13.4 11.5-14.5 [facility] DentonXmgydkhVHKUWZRJYO2301-13-99 15:42:00 Test Item Value Reference Range Interpretation Comments Platelet (test code = Platelet) 235 133-450 [facility] DentonQzvdpxvUTHVYTKNSN0093-47-65 15:42:00 Test Item Value Reference Range Interpretation Comments MPV (test code = MPV) 8.7 7.4-10.4 [place] 090223-01-10 15:42:00 Test Item Value Reference Range Interpretation Comments Segs (test code = Segs) 84.7 45.0-75.0 [facility] DentonFybsvfpXDNUMYKPFW1598-71-83 15:42:00 Test Item Value Reference Range Interpretation Comments Lymphocytes (test code = Lymphocytes) 11.0 20.0-40.0 [facility] DentonYjdeutwUINATQBJUI9190-48-84 15:42:00 Test Item Value Reference Range Interpretation Comments Monocytes (test code = Monocytes) 3.5 2.0-12.0 [facility] DentonRkmeojhGQQHSVUPUZ2943-38-25 15:42:00 Test Item Value Reference Range Interpretation Comments Eosinophils (test code = 0.3 See_Comment [A utomated message] The Eosinophils) system which ge nerated this result tra nsmitted reference range : <=4.0. The reference r belen was not used to int erpret this result as normal/abnormal . [facility] DentonWplroppMKMMXGMPCT7341-30-63 15:42:00 Test Item Value Reference Range Interpretation Comments Basophils (test code = 0.5 See_Comment [Aut omated message] The Basophils) system which ge nerated this result tra nsmitted reference range : <=1.0. The reference r belen was not used to int erpret this result as normal/abnormal . [facility] DentonHclzvyuOXMNENSARX3308-35-26 15:42:00 Test Item Value Reference Range Interpretation Comments Neutrophils # (test code = Neutrophils 10.6 1.5-8.1 #) [facility] DentonRxpddtuLXMUMNLJMB2549-19-36 15:42:00 Test Item Value Reference Range Interpretation Comments Lymphocytes # (test code = Lymphocytes 1.4 1.0-5.5 #) [facility] DentonAnkuphmJPMNDYJAQE7151-32-91 15:42:00 Test Item Value Reference Range Interpretation Comments Monocytes # (test code 0.4 See_Comment [Aut omated message] The = Monocytes #) system which generated this result tra nsmitted reference range : <=0.8. The reference r belen was not used to int erpret this result as normal/abnormal . [facility] DentonGdiwxboZNZTCQSTOF0271-34-77 15:42:00 Test Item Value Reference Range Interpretation Comments Basophils # (test code 0.1 See_Comment [Aut omated message] The = Basophils #) system which generated this result tra nsmitted reference range : <=0.2. The reference r belen was not used to int erpret this result as normal/abnormal . [facility] CypressJucmblbYDUNQLQJX3992-93-85 15:42:00 Test Item Value Reference Range Interpretation Comments Glucose Lvl (test code = Glucose Lvl) 86 70-99 [facility] CypressGgkffjhXKUBQJZWC4258-28-09 15:42:00 Test Item Value Reference Range Interpretation Comments BUN (test code = BUN) 7 7-22 [facility] CypressJqquitsEWYEJXWBZ4695-82-31 15:42:00 Test Item Value Reference Range Interpretation Comments Creatinine Lvl (test code = Creatinine 0.50 0.50-1.40 Lvl) [facility] CypressRisaacvUUKURMVDQ0114-97-61 15:42:00 Test Item Value Reference Range Interpretation Comments Sodium Lvl (test code = Sodium Lvl) 137 135-145 [place] 052653-01-10 15:42:00 Test Item Value Reference Range Interpretation Comments Potassium Lvl (test code = Potassium 3.4 3.5-5.1 Lvl) [facility] CypressFvzpbkjFBNZSMTYZ7776-06-18 15:42:00 Test Item Value Reference Range Interpretation Comments Chloride Lvl (test code = Chloride Lvl) 103 95-109 [facility] CypressZralxiqKUXQNRCQY2736-51-14 15:42:00 Test Item Value Reference Range Interpretation Comments CO2 (test code = CO2) 24 24-32 [place] 052653-01-10 15:42:00 Test Item Value Reference Range Interpretation Comments Calcium Lvl (test code = Calcium Lvl) 9.6 8.5-10.5 [facility] CypressOtasqggOKWIRLNFP0111-69-79 15:42:00 Test Item Value Reference Range Interpretation Comments AGAP (test code = AGAP) 13.4 10.0-20.0 [facility] CypressGothlorKMIKZFSFF6784-04-11 15:42:00 Test Item Value Reference Range Interpretation Comments eGFR (test code = eGFR) 136 [facility] CypressJqguwzbACINTIJKR5589-99-76 15:42:00 Test Item Value Reference Range Interpretation Comments Total Protein (test code = Total 7.9 6.4-8.4 Protein) [facility] CypressBtsvxdaKYVYZUBMK1072-14-04 15:42:00 Test Item Value Reference Range Interpretation Comments Albumin Lvl (test code = Albumin Lvl) 3.8 3.5-5.0 [facility] CypressMtbqjbvCCOIGOULQ3280-43-07 15:42:00 Test Item Value Reference Range Interpretation Comments ALANINE AMINOTRANSFERASE 48 See_Comment [A utomated message] (test code = ALANINE The sys tem which AMINOTRANSFERASE) generated this result transmitted ref erence range: <=65. Th e reference range was not used to int erpret this result as normal/abnormal . [facility] CypressHmtiziaOHDAGMYUA5834-32-49 15:42:00 Test Item Value Reference Range Interpretation Comments AST (test code = AST) 19 See_Comment [Auto mated message] The system which ge nerated this result transmit jose r reference range : <=37. The reference range was not used to interpr et this result as jerrod l/abnormal. [facility] CenterJzrbvdlJZGOAODGW6051-59-90 15:42:00 Test Item Value Reference Range Interpretation Comments Alk Phos (test code = Alk Phos) 79 39-136 [facility] CypressVaogoomSQCWBRXTH4924-20-92 15:42:00 Test Item Value Reference Range Interpretation Comments Bili Total (test code = Bili Total) 1.2 0.2-1.3 [facility] CypressNpsdvwhFJKYBWXXX4923-35-28 15:42:00 Test Item Value Reference Range Interpretation Comments Bili Direct (test code 0.4 See_Comment [Aut omated message] The = Bili Direct) system which generated this result tra nsmitted reference range : <=0.3. The reference r belen was not used to int erpret this result as jerrod l/abnormal. [facility] CypressRgggfdhYQQEAXNKN1197-45-12 15:42:00 Test Item Value Reference Range Interpretation Comments Bili Indirect (test 0.8 See_Comment [Automa jose r message] The code = Bili Indirect) system which generated this result tra nsmitted reference range : <=1.0. The reference r belen was not used to int erpret this result as normal/abnormal . [facility]FnmyurbOFABUWOFL0579-36-38 15:42:00 Test Item Value Reference Range Interpretation Comments Globulin (test code = Globulin) 4.1 2.7-4.2 [facility] CypressTufhultMEPZILVBO7874-96-61 15:42:00 Test Item Value Reference Range Interpretation Comments A/G Ratio (test code = A/G Ratio) 0.9 1 0.7-1.6 [facility] CypressYpuxucuOGVJNUUNW3072-82-98 15:42:00 Test Item Value Reference Range Interpretation Comments Lipase Lvl (test code = Lipase Lvl) 57 73-393 [facility] DallasGlqoytlZYAFBUUXGT3338-87-26 15:42:00 Test Item Value Reference Range Interpretation Comments WBC X 10x3 (test code = WBC X 10x3) 12.5 3.7-10.4 [facility] DentonSabalwsVRZWLSTBEQ5058-54-00 15:42:00 Test Item Value Reference Range Interpretation Comments RBC X 10x6 (test code = RBC X 10x6) 4.56 4.20-5.40 [facility] DentonTlaernjLWLUIDFNMK8737-02-76 15:42:00 Test Item Value Reference Range Interpretation Comments Hgb (test code = Hgb) 13.4 12.0-16.0 [facility] DentonLmkewdvVQAJPFMMGB7766-58-39 15:42:00 Test Item Value Reference Range Interpretation Comments Hct (test code = Hct) 39.5 36.0-48.0 [facility] DentonAzxriuzYUKGDJNGBJ5963-81-22 15:42:00 Test Item Value Reference Range Interpretation Comments MCV (test code = MCV) 86.6 80.0-98.0 [facility] DentonKorkmhhXJFGVHIXXT6129-22-24 15:42:00 Test Item Value Reference Range Interpretation Comments MCH (test code = MCH) 29.5 pg 27.0-31.0 [facility] DentonJzmrammJTCGLMQXPY4703-92-54 15:42:00 Test Item Value Reference Range Interpretation Comments MCHC (test code = MCHC) 34.0 32.0-36.0 [facility] DentonGppakawNPTHJARHKO5412-98-11 15:42:00 Test Item Value Reference Range Interpretation Comments RDW (test code = RDW) 13.4 11.5-14.5 [facility] DentonKdkukkdPRCGXACWKK1182-53-88 15:42:00 Test Item Value Reference Range Interpretation Comments Platelet (test code = Platelet) 235 133-450 [facility] DentonDgximtcBIVRXIWGYF4509-13-91 15:42:00 Test Item Value Reference Range Interpretation Comments MPV (test code = MPV) 8.7 7.4-10.4 [place] 090223-01-10 15:42:00 Test Item Value Reference Range Interpretation Comments Segs (test code = Segs) 84.7 45.0-75.0 [facility] DentonSiljhoqGLJMLUEJDK9280-89-86 15:42:00 Test Item Value Reference Range Interpretation Comments Lymphocytes (test code = Lymphocytes) 11.0 20.0-40.0 [facility] DentonWfbmjgqWLMLPKCJPQ7757-80-66 15:42:00 Test Item Value Reference Range Interpretation Comments Monocytes (test code = Monocytes) 3.5 2.0-12.0 [facility] DentonQyfsfxoDQLXZVHDXW3469-13-01 15:42:00 Test Item Value Reference Range Interpretation Comments Eosinophils (test code = 0.3 See_Comment [A utomated message] The Eosinophils) system which ge nerated this result tra nsmitted reference range : <=4.0. The reference r belen was not used to int erpret this result as normal/abnormal . [facility] DentonTxdjkncOHHKGQLFTT5678-11-58 15:42:00 Test Item Value Reference Range Interpretation Comments Basophils (test code = 0.5 See_Comment [Aut omated message] The Basophils) system which ge nerated this result tra nsmitted reference range : <=1.0. The reference r belen was not used to int erpret this result as normal/abnormal . [facility] DentonRkbvjgiLPNBWNGJHK5629-14-31 15:42:00 Test Item Value Reference Range Interpretation Comments Neutrophils # (test code = Neutrophils 10.6 1.5-8.1 #) [id number] 15:42:00 Test Item Value Reference Range Interpretation Comments Lymphocytes # (test code = Lymphocytes 1.4 1.0-5.5 #) [facility] [id number] 15:42:00 Test Item Value Reference Range Interpretation Comments Monocytes # (test code 0.4 See_Comment [Aut omated message] The = Monocytes #) system which generated this result tra nsmitted reference range : <=0.8. The reference r belen was not used to int erpret this result as normal/abnormal . [facility] [id number] 15:42:00 Test Item Value Reference Range Interpretation Comments Basophils # (test code 0.1 See_Comment [Aut omated message] The = Basophils #) system which generated this result tra nsmitted reference range : <=0.2. The reference r belen was not used to int erpret this result as normal/abnormal . Ramy Shiloh Notes Date/Time Note Provider Source 2022-08-12 EXAM: US PELVIS TRANSABDOMINAL [facility] 14:10:56-00:00 EXAM: US PELVIS TRANSVAGINAL [facility] DATE: 08/12/2022 13:47 INDICATION: - n/v [...] correspo nds to 11 weeks 5 days. Coleman-rump length (CRL): 5.57 cm corresponds to 12 [...] of 12 weeks and 2 days. Reference: Eliailet PM et al. Diagnosti c Criteria for Nonviable Early in the First Trimester. N Engl J Med 2013; 369: 1443-51 2022-08-12 EXAM: US PELVIS TRANSABDOMINAL [facility] 14:10:56-00:00 EXAM: US PELVIS TRANSVAGINAL [facility] DATE: 08/12/2022 13:47 INDICATION: - n/v [...] correspo nds to 11 weeks 5 days. Coleman-rump length (CRL): 5.57 cm corresponds to 12 [...] 369: 1443-51 2022-08-12 EXAM: US PELVIS TRANSABDOMINAL [facility] 14:10:56-00:00 EXAM: US PELVIS TRANSVAGINAL [facility] [...] correspo nds to 11 weeks 5 days. Coleman-rump length (CRL): 5.57 cm corresponds to 12 [...] 369: 1443-51 2022-08-12 EXAM: US PELVIS TRANSABDOMINAL [facility] 14:10:56-00:00 EXAM: US PELVIS TRANSVAGINAL [facility] [...] correspo nds to 11 weeks 5 days. Coleman-rump length (CRL): 5.57 cm corresponds to 12 [...] 369: 1443-51 2022-08-12 EXAM: US PELVIS TRANSABDOMINAL [facility] 14:10:56-00:00 EXAM: US PELVIS TRANSVAGINAL [facility] [...] correspo nds to 11 weeks 5 days. Coleman-rump length (CRL): 5.57 cm corresponds to 12 [...] 369: 1443-51 2022-08-12 EXAM: US PELVIS TRANSABDOMINAL [facility] 14:10:56-00:00 EXAM: US PELVIS TRANSVAGINAL [facility] [...] correspo nds to 11 weeks 5 days. Coleman-rump length (CRL): 5.57 cm corresponds to 12 weeks 2 days. Embryonic heart motion: 170 bpm Yolk sac: Not visualized Subchorionic hemorrhage: None. Right ovary: Size: 2.9 x 1.8 x 1.7 cm cm Cysts: None. Masses: None. Left ovary: Not identified Adnexa: Normal. Free fluid: None. Other findings: None.
[2023-03-29] MEDS ORDERED: SIMETHICONE 80 MG TAB ONE (22:00)
[2023-03-29] MEDS ORDERED: KETOROLAC 30 MG/ML INJ ONE (22:00)
[2023-03-29] MEDS ORDERED: DICYCLOMINE HCL 10 MG CAP ONE ×2 (22:00→22:44)
[2023-03-29 22:01] LABS: Specific Gravity 1.029 (1.005-1.030)
[2023-03-29 22:03] LABS: Specific Gravity 1.029 (1.005-1.030); Urine Bacteria None Seen /HPF (<20); Urine Bilirubin NEGATIVE (Negative); Urine Blood 3+ (Negative); Urine Clarity Extremely Turbid (Clear); Urine Color Yellow (Yellow); Urine Glucose NEGATIVE (Negative); Urine Mucus Slight /HPF (None Seen); Urine Protein TRACE (Negative); Urine Urobilinogen Normal (Normal); Urine pH 6.5 (5.0-7.0)
--- NOTE | 2023-03-29 22:33 | EDPHYS ---
Physician Documentation [facility] Name: Annette Gotti Age: 22 yrs Sex: Female : 2000 Arrival Date: 03/29/2023 Time: 20:16 Bed 5 Private MD: ED Physician Mike Sweeney HPI: 03/29 23:22 This 22 yrs old Female presents to ER via Ambulatory with complaints of snw Abdominal Pain. 23:22 The patient presents with abdominal pain in the upper abdomen, in the right upper snw quadrant. The symptoms radiate to The symptoms are described as shooting, stabbing. Severity of pain: At its worst the pain was moderate severe. The patient has experienced a previous episode, approximately 1 weeks ago. The patient has been recently seen by a physician: appt with Dr. Lindsey for surgery in the am. 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 - Social history:: Smoking status: Patient denies any tobacco usage or history of. ROS: 23:20 Constitutional: Negative for fever, chills, and weight loss, Eyes: Negative for injury, snw pain, redness, and discharge, ENT: Negative for injury, pain, and discharge, Neck: Negative for injury, pain, and swelling, Cardiovascular: Negative for chest pain, palpitations, and edema, Respiratory: Negative for shortness of breath, cough, wheezing, and pleuritic chest pain, Back: Negative for injury and pain, : Negative for injury, bleeding, discharge, and swelling, MS/Extremity: Negative for injury and deformity, Skin: Negative for injury, rash, and discoloration, Neuro: Negative for headache, weakness, numbness, tingling, and seizure, Psych: Negative for depression, anxiety, suicide ideation, homicidal ideation, and hallucinations. 23:20 Abdomen/GI: Positive for abdominal pain, of the right upper quadrant. Exam: 23:20 Constitutional: This is a well developed, well nourished patient who is awake, alert, snw and in no acute distress. Head/Face: Normocephalic, atraumatic. Eyes: Pupils equal round and reactive to light, extra-ocular motions intact. Lids and lashes normal. Conjunctiva and sclera are non-icteric and not injected. Cornea within normal limits. Periorbital areas with no swelling, redness, or edema. ENT: Nares patent. No nasal discharge, no septal abnormalities noted. Tympanic membranes are normal and external auditory canals are clear. Oropharynx with no redness, swelling, or masses, exudates, or evidence of obstruction, uvula midline. Mucous membranes moist. Neck: Trachea midline, no thyromegaly or masses palpated, and no cervical lymphadenopathy. Supple, full range of motion without nuchal rigidity, or vertebral point tenderness. No Meningismus. Chest/axilla: Normal chest wall appearance and motion. Nontender with no deformity. No lesions are appreciated. Cardiovascular: Regular rate and rhythm with a normal S1 and S2. No gallops, murmurs, or rubs. Normal PMI, no JVD. No pulse deficits. Respiratory: Lungs have equal breath sounds bilaterally, clear to auscultation and percussion. No rales, rhonchi or wheezes noted. No increased work of breathing, no retractions or nasal flaring. Back: No spinal tenderness. No costovertebral tenderness. Full range of motion. Skin: Warm, dry with normal turgor. Normal color with no rashes, no lesions, and no evidence of cellulitis. MS/ Extremity: Pulses equal, no cyanosis. Neurovascular intact. Full, normal range of motion. Neuro: Awake and alert, GCS 15, oriented to person, place, time, and situation. Cranial nerves II-XII grossly intact. Motor strength 5/5 in all extremities. Sensory grossly intact. Cerebellar exam normal. Normal gait. Psych: Awake, alert, with orientation to person, place and time. Behavior, mood, and affect are within normal limits. 23:20 Abdomen/GI: Inspection: abdomen appears normal, Bowel sounds: normal, Palpation: moderate abdominal tenderness, in the right upper quadrant. Vital Signs: 20:41 BP 116 / 68; Pulse 64; Resp 16; Temp 98.3; Pulse Ox 100% ; Weight 71.67 kg; Pain 6/10; ap3 21:58 BP 139 / 73; Pulse 71; Resp 16 S; Pulse Ox 98% on R/A; lg3 22:40 BP 145 / 72; Pulse 67; Resp 16; Pulse Ox 98% ; bp 20:41 Pain Scale: Adult ap3 MDM: 21:50 Patient medically screened. snw 23:21 Differential diagnosis: cholecystitis, Cholelithiasis, non-specific abd pain. Data snw reviewed: vital signs, nurses notes. I considered the following discharge prescriptions or medication management in the emergency department Medications were administered in the Emergency Department. See MAR. Counseling: I had a detailed discussion with the patient and/or guardian regarding the historical points, exam findings, and any diagnostic results supporting the discharge/admit diagnosis, the presence of at least one elevated blood pressure reading (>120/80) during this emergency department visit, the need for outpatient follow up, a general surgeon. Response to treatment: the patient's symptoms have markedly improved after treatment. Special discussion: Based on the history and exam findings, there is no indication for further emergent testing or inpatient evaluation. I discussed with the patient/guardian the need to see the general surgeon for further evaluation of the symptoms. ED course: NPO post MN, f/u with Dr. Lindsey for cholecystectomy tomorrow am as directed.. 03/29 20:28 Order name: Urine W/Microscopic (UAM); Complete Time: 22:19 snw 03/29 20:28 Order name: PREGU; Complete Time: 22:19 [facility] 03/29 22:10 Order name: Urine Culture EDMS Administered Medications: 22:00 Drug: Simethicone PO 240 mg Route: PO; lg3 22:39 Follow up: Response: No adverse reaction bp 22:00 Drug: Ketorolac IM 30 mg Route: IM; Site: right gluteus; lg3 22:39 Follow up: Response: No adverse reaction bp 22:00 Drug: Dicyclomine PO 20 mg Route: PO; lg3 22:39 Follow up: Response: No adverse reaction bp 22:39 Drug: Amoxicillin-Clavulanate PO 875 mg Route: PO; bp 22:40 Follow up: Response: No adverse reaction bp 22:39 Drug: Dicyclomine PO 20 mg Route: PO; bp 22:40 Follow up: Response: No adverse reaction bp 22:39 Drug: Promethazine PO 25 mg Route: PO; bp 22:40 Follow up: Response: No adverse reaction bp Disposition: 03/30 01:28 Co-signature as Attending Physician, Mike Sweeney DO I was immediately available on-site ms3 in the Emergency Department for consultation in the care of the patient. Disposition Summary: 03/29/23 22:32 Discharge Ordered Location: Home snw Condition: Stable snw Diagnosis - Cholecystitis, unspecified snw - UTI/ Urinary tract infection, site not specified snw Followup: snw - With: Emergency Department - When: As needed - Reason: Worsening of condition Followup: snw - With: Robbie Lindsey MD - When: Tomorrow - Reason: Recheck today's complaints, Continuance of care Discharge Instructions: - Discharge Summary Sheet snw - Cholecystitis snw - Urinary Tract Infection, Adult snw - Rehydration, Adult snw Forms: - Medication Reconciliation Form snw - Thank You Letter snw - Antibiotic Education snw - Prescription Opioid Use snw - Patient Portal Instructions snw - Leadership Thank You Letter snw Prescriptions: - Augmentin 875-125 mg Oral Tablet - take 1 tablet by ORAL route every 12 hours for 10 days; 20 tablet; Refills: 0, snw Product Selection Permitted - promethazine 25 mg Oral Tablet - take 1 tablet by ORAL route every 6 hours As needed; 20 tablet; Refills: 0, snw Product Selection Permitted - dicyclomine 20 mg Oral Tablet - take 1 tablet by ORAL route 3 times per day; 21 tablet; Refills: 0, Product snw Selection Permitted Signatures: Dispatcher [employer] EDDE Mabel Delgadillo, FISH WORM GROWER-C FISH WORM GROWER-Csnw Armani Salcido, RN RN Krista Pradhan, RN RN ap3 Janelle Main, RN RN lg3 Mike Sweeney DO DO ms3
--- NOTE | 2023-03-29 22:33 | ER ---
Nurse's Notes [facility] Name: Annette Gotti Age: 22 yrs Sex: Female : 2000 Arrival Date: 03/29/2023 Time: 20:16 Bed 5 Private MD: Diagnosis: Cholecystitis, unspecified;UTI/ Urinary tract infection, site not specified Presentation: 03/29 20:41 Chief complaint: Patient states: she started having mid upper abdominal pain approx one ap3 hour ago. patient reports she is scheduled to have her gallbladder removed tomorrow but the pain was too much. Coronavirus screen: At this time, the client does not indicate any symptoms associated with coronavirus-19. Ebola Screen: No symptoms or risks identified at this time. Initial Sepsis Screen:. Initial Sepsis Screen: Does the patient meet any 2 criteria? No. Patient's initial sepsis screen is negative. Does the patient have a suspected source of infection? Yes: Acute abdominal pain. Risk Assessment: Do you want to hurt yourself or someone else? Patient reports no desire to harm self or others. Onset of symptoms was March 29, 2023. 20:41 Method Of Arrival: Ambulatory ap3 20:41 Acuity: DONITA 3 ap3 Triage Assessment: 20:43 General: Appears in no apparent distress. Behavior is calm, cooperative, appropriate ap3 for age. Pain: Complains of pain in epigastric area, right upper quadrant and left upper quadrant. Neuro: Level of Consciousness is awake, alert, obeys commands, Oriented to person, place, time, situation. Cardiovascular: Patient's skin is warm and dry. Respiratory: Airway is patent Respiratory effort is even, unlabored, Respiratory pattern is regular, symmetrical. GI: Reports lower abdominal pain, upper abdominal pain, nausea. BULB TESTER: 20:44 LMP N/A - Recent ap3 Historical: - Allergies: 20:43 No Known Allergies; ap3 - Home Meds: 20:43 None [Active]; ap3 - PMHx: 20:43 None; ap3 - Immunization history:: Client reports receiving the 2nd dose of the Covid vaccine. - Social history:: Smoking status: Patient denies any tobacco usage or history of. Screenin:43 [facility] ED Fall Risk Assessment (Adult) History of falling in the last 3 months, ap3 including since admission No falls in past 3 months (0 pts). Abuse screen: Denies threats or abuse. Nutritional screening: No deficits noted. Tuberculosis screening: No symptoms or risk factors identified. Assessment: 21:58 General: Appears in no apparent distress. uncomfortable, Behavior is calm, cooperative. lg3 Pain: Complains of pain in epigastric area. Neuro: No deficits noted. Dietz Agitation-Sedation Scale (RASS): 0 - Alert and Calm Level of Consciousness is awake, alert, obeys commands, Oriented to person, place, time, situation. Cardiovascular: No deficits noted. Denies chest pain, shortness of breath, Capillary refill < 3 seconds Clubbing of nail beds is absent JVD is absent Patient's skin is warm and dry. Respiratory: No deficits noted. Airway is patent Respiratory effort is even, unlabored, Respiratory pattern is regular, symmetrical. GI: Abdomen is round non-distended, Bowel sounds present X 4 quads. Abd is soft X 4 quads Abdomen is tender to palpation in right upper quadrant and left upper quadrant. : No deficits noted. No signs and/or symptoms were reported regarding the genitourinary system. EENT: No deficits noted. No signs and/or symptoms were reported regarding the EENT system. Derm: No deficits noted. No signs and/or symptoms reported regarding the dermatologic system. Skin is intact, is healthy with good turgor, Skin is dry, Skin is normal, Skin temperature is warm. Musculoskeletal: No deficits noted. No signs and/or symptoms reported regarding the musculoskeletal system. Circulation, motion, and sensation intact. Range of motion: intact in all extremities. Vital Signs: 20:41 BP 116 / 68; Pulse 64; Resp 16; Temp 98.3; Pulse Ox 100% ; Weight 71.67 kg; Pain 6/10; ap3 21:58 BP 139 / 73; Pulse 71; Resp 16 S; Pulse Ox 98% on R/A; lg3 22:40 BP 145 / 72; Pulse 67; Resp 16; Pulse Ox 98% ; bp 20:41 Pain Scale: Adult ap3 ED Course: 20:19 Patient arrived in ED. ag3 20:43 Triage completed. ap3 20:43 Arm band placed on right wrist. ap3 20:45 Mabel Delgadillo FNP-C is PHCP. snw 20:45 Mike Sweeney DO is Attending Physician. snw 21:49 Armani Salcido, RN is Primary Nurse. bp 21:58 Patient has correct armband on for positive identification. Placed in gown. Bed in low lg3 position. Call light in reach. Side rails up X 1. Client placed on continuous cardiac and pulse oximetry monitoring. NIBP monitoring applied. Door closed. Noise minimized. Warm blanket given. Family accompanied patient. 21:58 Patient maintains SpO2 saturation greater than 95% on room air. lg3 22:00 PREGU Sent. lg3 22:00 Urine W/Microscopic (UAM) Sent. lg3 22:32 Robbie Lindsey MD is Referral Physician. snw 22:40 No provider procedures requiring assistance completed. Patient did not have IV access bp during this emergency room visit. Administered Medications: 22:00 Drug: Simethicone PO 240 mg Route: PO; lg3 22:39 Follow up: Response: No adverse reaction bp 22:00 Drug: Ketorolac IM 30 mg Route: IM; Site: right gluteus; lg3 22:39 Follow up: Response: No adverse reaction bp 22:00 Drug: Dicyclomine PO 20 mg Route: PO; lg3 22:39 Follow up: Response: No adverse reaction bp 22:39 Drug: Amoxicillin-Clavulanate PO 875 mg Route: PO; bp 22:40 Follow up: Response: No adverse reaction bp 22:39 Drug: Dicyclomine PO 20 mg Route: PO; bp 22:40 Follow up: Response: No adverse reaction bp 22:39 Drug: Promethazine PO 25 mg Route: PO; bp 22:40 Follow up: Response: No adverse reaction bp Medication: 22:40 VIS not applicable for this client. bp Outcome: 22:32 Discharge ordered by . snw 22:40 Discharged to home ambulatory, with family. bp 22:40 Condition: stable 22:40 Discharge instructions given to patient, Instructed on discharge instructions, follow up and referral plans. medication usage, Demonstrated understanding of instructions, follow-up care, medications, Prescriptions given X 3. 22:41 Patient left the ED. bp Signatures: Mabel Delgadillo, CLAIM REVIEW MEDICAL DIRECTOR-C CLAIM REVIEW MEDICAL DIRECTOR-Csnw Armani Salcido, RN RN bp Krista Padgett RN RN ap3 Trinidad Wooten ag3 Main, Janelle, RN RN lg3
[2023-03-29] MEDS ORDERED: PROMETHAZINE 25 MG TABLET ONE (22:44)
[2023-03-29] MEDS ORDERED: AMOX/K CLAV 875 MG TAB ONE (22:44)
[2023-03-29 23:54] VITALS: TEMP 98.3
[2023-03-29 23:58] VITALS: O2SAT 98
[2023-03-29 23:59] VITALS: BP 145/72
== END 2023-03-29 22:41 | disposition home or self-care (01) ==
LOC: ER 20:16
DX: K81.9 Cholecystitis, unspecified (principal); N39.0 Urinary tract infection, site not specified
CPT/HCPCS: 87088; 81001; 87086; 81025; 96372; 99285; Q0169

== ENCOUNTER 2023-04-01 06:27 | Day surgery (SDC) | payer OTHER ==
[2023-03-31 15:15] LABS: Specific Gravity 1.026 (1.005-1.030)
[2023-04-01] MEDS ORDERED: CEFOXITIN SODIUM 2 GM/VIAL ONE (06:47)
[2023-04-01] MEDS ORDERED: Ringers Lactate 1,000 ML IV ONE (06:47)
[2023-04-01] MEDS: BUPIVACAINE 0.25% PF 30 ML VIAL ONE ×2 (07:20→08:00)
[2023-04-01] MEDS ORDERED: FENTANYL CITR 100 MCG/2 ML ONE (07:37)
[2023-04-01] MEDS ORDERED: MIDAZOLAM HCL 2 MG/2 ML INJ ONE (07:37)
[2023-04-01] MEDS ORDERED: ROCURONIUM 50 MG/5 ML VIAL IV ONE (07:37)
[2023-04-01] MEDS ORDERED: dexAMETHasone 10 MG/ML VIAL ONE (07:37)
[2023-04-01] MEDS ORDERED: KETOROLAC 30 MG/ML INJ ONE (07:37)
[2023-04-01] MEDS ORDERED: propofoL 200 MG/20 ML VIAL IV ONE (07:37)
[2023-04-01] MEDS ORDERED: ONDANSETRON 4 MG/2 ML VIAL ONE (07:38)
[2023-04-01] MEDS ORDERED: LIDOCAINE 2% MPF 5 ML VIAL ONE (07:38)
--- NOTE | 2023-04-01 08:48 | P.OP ---
Preoperative diagnosis: Cholecystitis Postoperative diagnosis: Cholecystitis Primary procedure: Laparoscopic Cholecystectomy with ICG Cholangiography Anesthesia: GETA + Local Estimated blood loss: <5cc Specimen: Gallbladder Findings: Short Cystic Duct, Accessory br of Cystic artery Complications: None Transferred to: Recovery Room Condition: Good
[2023-04-01] MEDS ORDERED: NEOSTIGMINE 1 MG/ML -10 ML VIAL ONE (08:50)
[2023-04-01] MEDS ORDERED: GLYCOPYRROLATE 0.2 MG/ML SYR ONE (08:50)
[2023-04-01] MEDS ORDERED: PROMETHAZINE INJ 25 MG/ML AMP ONE (09:24)
[2023-04-01 09:31] VITALS: TEMP 96.9
[2023-04-01] MEDS ORDERED: HYDROMORPHONE HCL 1 MG/ML INJ ONE (09:39)
--- NOTE | 2023-04-01 10:12 | OP ---
Date of Procedure: 04/01/2023 Surgeon: Robbie Lindsey MD, Preoperative Diagnosis: Cholecystitis. Postoperative Diagnosis: Cholecystitis. Procedure Performed: Laparoscopic cholecystectomy with Indocyanine green cholangiography. Anesthesia: General endotracheal plus local with 0.25% Marcaine. Estimated Blood Loss: Less than 5 cc. Specimen: Gallbladder. Findings: A short cystic duct was noted. Accessory branch of the cystic artery was also noted. Complications: None. Disposition: The patient was transferred to the recovery room in good condition. Procedure In Detail: After informed consent was obtained, the patient was brought to the operating r oom, prepped and draped in the usual sterile fashion after adequate anesthesia was achieved. I anest hetized an area of the supraumbilical position down to subcutaneous tissues. A 5 mm 0-degree optical trocar was introduced into the abdomen without evidence of complication and insufflation was obtaine d to 15 mmHg at this time. There was no injury to vital structures upon entry into the abdomen. Two additional trocars were placed, 1 in the epigastrium and 1 in the right upper quadrant. Both of the se were 5 mm trocars placed under direct visualization without evidence of complication. The umbilic al trocar was then upsized to a 12 mm under direct visualization without evidence of complication. T he patient was positioned head up right-side up position. Ratcheted grasper was used to grasp the pa tient's gallbladder and placed toward the patient's right shoulder. I dissected down from the fundus of the gallbladder. There was significant inflammatory change as well as scar tissue from the anter ior surface of the omentum and stomach, which was in close apposition to the triangle of Calot requir ing meticulous dissection using a combination of blunt dissection, sharp dissection as well as electr ocautery. After this meticulous dissection was performed, I visualized the cystic duct, at this poin t encircled it, and skeletonized the structure. I did confirm the anatomy using Indocyanine green ch olangiography at this point without incident or complication. I then dissected circumferentially shiva und a structure entering the gallbladder and found that there were 2 structures entering the gallblad shayna, identified as a cystic artery and accessory branch of the cystic artery. Both of these structur es were skeletonized. The hepatic fossa was visualized in the posterior aspect and these structures were the only ones identified going through the appropriate anatomic position to enter the gallbladde r. At this point, Indocyanine green cholangiography once again confirmed the anatomy. A short cysti c duct was noted as well as the cystic artery and accessory branch. After the structures were comple tely skeletonized visualizing the liver in the posterior aspect, a critical view of safety was obtain ed at this point. I then placed double titanium clips proximally on both the cystic duct and cystic artery and accessory branch of cystic artery and singly on the distal aspect of the cystic duct, cyst ic artery and accessory branch cystic artery. These structures were then ligated using Endo Leonardo. I then removed the gallbladder from the hepatic fossa, placed in EndoCatch bag, removed the umbilica l trocar, and sent off for pathologic examination. I then inspected the hepatic fossa and clips were found to be in good anatomic position without any leakage. The area was copiously irrigated and suc tioned out until completely dry. The patient was positioned back in neutral position, dissected out the remaining effluent. I inspected the clips, found to be good anatomic position. ICG cholangiogra phy confirmed no leakage of bile at this point. I then closed the 12 mm trocar site using a Sushil-T homason suture passer with 0 Vicryl in an interrupted fashion with good approximation of tissues. Th e abdomen was completely desufflated under direct vision without evidence of complication. The remai minesh trocars were removed. All skin incisions were then copiously irrigated and closed with a 4-0 Mo nocryl in a running fashion. Dermabond placed over top. The patient tolerated the procedure well wi thout evidence of complication and transferred to PACU in good condition. All counts were correct at the end of the ca se. TK/MODL Voice ID: [id number] Report ID: [id number]
[2023-04-01 11:47] VITALS: BP 128/89; O2SAT 98
== END 2023-04-01 11:30 | disposition home or self-care (01) ==
LOC: OR 06:27
PROVIDERS: ATTEND Surgery
PROC: BF50200 Other Imaging of Bile Ducts using Fluorescing Agent, Indocyanine Green Dye, Intraoperative (ICD-10-PCS; 2023-04-01)
PROC: 0FT44ZZ Resection of Gallbladder, Percutaneous Endoscopic Approach (ICD-10-PCS; principal; 2023-04-01 07:30)
DX: K80.10 Calculus of gallbladder with chronic cholecystitis without obstruction (principal); R10.11 Right upper quadrant pain
CPT/HCPCS: 81025; 88304; 47563; J2550; J2704; J2710; J2001; J2250; J3010; J1100; J1170; J0694; J2405; J7120